=== PATIENT | female | born 1955 | race Hispanic/Latino ===

== ENCOUNTER → 2018-11-28 | Day surgery (SDC) | payer OTHER ==
[~2018-11-28] MED LIST: AMLODIPINE BESYL5 MG PO; FENTANYL CITRATE/PF 100MCG/2 ML INJ ONE; HYZAAR 100-251 EACH PO; LORATADINE10 MG PO; MECLIZINE HCL25 MG; MECLIZINE PO; METFORMIN HCL500 M2 PO; MIDAZOLAM HCL 2 MG/2 ML VIAL ONE; PANTOPRAZOLE SO40 MG PO; PROPOFOL IV EMULSION 10 MG/ML 50 ML VIAL ONE; RANITIDINE HCL150 MG; RANITIDINE HCL300 MG PO; Z.0.BYSTOLIC10 MG PO; Z.0.DIOVAN HCT 3201 PO; ZETIA10 MG PO
--- OUTSIDE RECORDS SUMMARY | 2018-11-28 05:48 | XMS REPORT | Clinical Summary ---
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 Active pantoprazole (PROTONIX) pantoprazole 0 40 MG EC tablet 40 mg tablet,delaye d release TAKE 1 TABLET(S) BY MOUTH DAILY Active ranitidine (ZANTAC) 150 Take 150 mg 0 MG tablet by mouth 2 (two) times a day. Active Problems No known active problems Encounters Care Team Description Date Type Specialty Narcisa Lehman PA Urge incontinence of urine (Primary Dx); Full incontinence of feces; Recurrent urinary tract infection 03/16/2018 Office Visit Urology after 11/27/2017 Family History Medical History Relation Name Comments Parkinsonism Father Hypertension Mother Relation Name Status Comments Father Mother Alive Social History Date Tobacco Use Types Packs/Day Years Used Never Smoker Smokeless Tobacco: Never Used Alcohol Use Drinks/Week oz/Week Comments No Sex Assigned at Date Recorded Not on file Industry Job Start Date Occupation Not on file Not on file Not on file Travel End Travel History Travel Start No recent travel history available. Last Filed Vital Signs Time Taken Vital Sign Reading 03/16/2018 11:46 AM CDT Blood Pressure 141/84 03/16/2018 11:46 AM CDT Pulse 80 - Temperature - - Respiratory Rate - - Oxygen Saturation - - Inhaled Oxygen - Concentration 03/16/2018 11:46 AM CDT Weight 118 kg (261 lb) 03/16/2018 11:46 AM CDT Height 167.6 cm (5' 6") 03/16/2018 11:46 AM CDT Body Mass Index 42.13 Plan of Treatment Health Maintenance Due Date Last Done Comments BREAST CANCER SCREENING 2007 COLONOSCOPY SCREENING 2007 SHINGLES VACCINES (#1) 2007 INFLUENZA VACCINE 12/14/2018 Procedures Comments Procedure Name Priority Date/Time Associated Diagnosis POC URINALYSIS DIPSTICK Routine 03/16/2018 Urge incontinence of 12:04 PM CDT urine after 11/27/2017 Results * POC urinalysis dipstick (03/16/2018 12:04 PM CDT) Color urine, Yellow POC Clarity urine, Clear POC Glucose urine, Negative Negative POC Bilirubin Negative Negative urine, POC Ketones urine, Negative Negative POC Specific 1.020 1.005 - 1.030 gravity urine, POC Blood urine, Negative Negative POC pH urine, POC 5.5 5.0, 5.5, 6.0, 6.5, 7.0, 7.5, 8.0, 8.5 Protein urine, Trace (A) Negative POC Urobilinogen <2.0 <2.0 urine, POC Nitrite urine, Negative Negative POC Leukocyte Negative Negative esterase urine, POC Specimen Urine after 11/27/2017 Insurance Type Payer Benefit Subscriber ID Effective Phone Address Plan / Dates Group HMO/PPO [facility] xxxxxxxxx [id number] THCARE resent CHOICE/CHO ICE + Advance Directives Patient has advance care planning documents on file. For more information, tono cortez contact: Gallo Lyon [address] [place] [address]
--- OUTSIDE RECORDS SUMMARY | 2018-11-28 05:50 | XMS REPORT | Continuity of Care Document ---
Author Author Dinamundo Address Unknown Phone Unavailable Care Team Providers Care Director Of Group Counseling Program Name Role Phone Wheeldo Unavailable Unavailable Problems Problem Status Onset Date Classification Date Reported Comments Source R10.84 GENERALIZED ABDOMINAL PAIN Active 10/30/2018 [facility] Encounter for preprocedural cardiovascular examination 05/12/2018 11/22/2018 [facility] DX: R59.1 Active 04/26/2018 [facility] Localized swelling, mass and lump, trunk 04/21/2018 11/05/2018 [facility] DX: R22.2 Active 04/13/2018 [facility] Encounter for screening mammogram for malignant neoplasm of breast 03/18/2018 09/28/2018 [facility] ROUTINE MAMMO Active 02/22/2018 [facility] DX: ROUTINE SCREENING Active 07/30/2016 [facility] Discharge Diagnosis: Chest pain 09/25/2015 09/28/2015 [facility] Discharge Diagnosis: Abdominal pain 09/25/2015 09/28/2015 [facility] HIGH BLOOD PRESSURE Active 09/24/2015 [facility] SCREENING Active 06/18/2014 [facility] ASYMMETRIC DENSITY Active 05/21/2013 [facility] ROUTINE Active 04/25/2013 [facility] VOMITING Active 01/16/2013 [facility] RTN Active 04/20/2011 [facility] Acid reflux Active Problem 11/22/2018 [facility] Hernia Resolved Problem 09/28/2015 [facility] Hypertension Active Problem 11/22/2018 [facility] Acid reflux Resolved Problem 01/18/2013 [facility] Hernia Resolved Problem 01/18/2013 [facility] Hypertension Resolved Problem 01/18/2013 [facility] Arthritis Active Problem 11/22/2018 [facility] Shingles Resolved Problem 11/22/2018 [facility] Hypercholesterolemia Active Problem 11/22/2018 [facility] Urinary frequency Active Problem 11/22/2018 [facility] Generalized enlarged lymph nodes 11/22/2018 [facility] Localized enlarged lymph nodes 11/05/2018 [facility] Postmenopausal Active Problem 09/28/2018 [facility] Chronic edema Active Diagnosis 08/02/2017 [facility] Fatty liver Active Problem 09/28/2018 [facility] Allergic sinusitis Active Problem 09/28/2018 [facility] Essential hypertension Active Problem 09/28/2018 [facility] Gastroesophageal reflux disease, esophagitis presence not specified Active Problem 09/28/2018 [facility] ANAID Active Diagnosis 08/02/2017 [facility] Vitamin D deficiency Active Problem 09/28/2018 [facility] HLD Active Problem 09/28/2018 [facility] Osteoarthritis Active Problem 09/28/2018 [facility] Hemorrhoids Active Problem 09/28/2018 [facility] Obesity Active Problem 09/28/2018 [facility] Statin intolerance Active Problem 09/28/2018 [facility] ANA LAURA Active Problem 09/28/2018 [facility] Prediabetes Active Problem 09/28/2018 [facility] History of cholecystectomy Active Problem 09/28/2018 [facility] Diarrhea, unspecified type Active Diagnosis 03/31/2017 [facility] Cough Active Diagnosis 03/31/2017 [facility] Hemorrhoids, unspecified hemorrhoid type Active Diagnosis 01/11/2018 [facility] Pelvic pain Active Diagnosis 01/20/2017 [facility] Hordeolum externum of right upper eyelid Active Diagnosis 04/22/2017 [facility] Acute non-recurrent maxillary sinusitis Active Diagnosis 04/22/2017 [facility] Abnormal EKG Active Diagnosis 08/02/2017 [facility] Herpes zoster without complication Active Diagnosis 08/02/2017 [facility] Screening for breast cancer Active Diagnosis 08/02/2017 [facility] Encntr for general adult medical exam w/o abnormal findings Active Diagnosis 08/02/2017 [facility] 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 [facility] Irritable bowel syndrome with diarrhea Active Problem 09/28/2018 [facility] Bladder spasms Active Problem 09/28/2018 [facility] 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, initial encounter Active Problem 09/28/2018 [facility] Breast cancer screening Active Diagnosis 09/23/2017 [facility] Acute cystitis without hematuria Active Diagnosis 12/23/2017 [facility] Sore throat Active Diagnosis 12/23/2017 [facility] Left arm pain Active Diagnosis 07/05/2017 [facility] Anal fissure Active Diagnosis 01/05/2018 [facility] Bronchitis Active Diagnosis 01/20/2018 [facility] Acute sinusitis, unspecified Active Diagnosis 01/20/2018 [facility] Other specified bacterial agents as the cause of diseases classified elsewhere Active Diagnosis 01/20/2018 [facility] Urinary tract infection without hematuria, site unspecified Active Diagnosis 02/27/2018 [facility] Flank pain, acute Active Diagnosis 03/07/2018 [facility] Right upper quadrant abdominal pain Active Diagnosis 03/07/2018 [facility] Morbid obesity Active Problem 09/28/2018 [facility] Acute pain of right knee Active Diagnosis 03/07/2018 [facility] Primary osteoarthritis of right knee Active Problem 09/28/2018 [facility] Gastroesophageal reflux disease without esophagitis Active Problem 09/28/2018 [facility] Lymphadenopathy Active Diagnosis 04/18/2018 [facility] Vertigo Active Diagnosis 04/11/2018 [facility] Soft tissue swelling of chest wall Active Diagnosis 04/11/2018 [facility] Acute URI Active Diagnosis 07/09/2018 [facility] Generalized abdominal pain Active Diagnosis 07/09/2018 [facility] Neck pain Active Diagnosis 09/28/2018 [facility] Osteoarthritis, generalized Active Problem 01/07/2015 [facility] Hypertension, benign Active Problem 01/07/2015 [facility] Hyperlipidemia Active Problem 01/07/2015 [facility] Body Mass Index 39.0-39.9, adult Active Problem 01/07/2015 [facility] Obesity Active Problem 01/07/2015 [facility] ANA LAURA Active Problem 01/07/2015 [facility] Hemorrhoids Active Problem 01/07/2015 [facility] Postmenopausal Active Problem 01/07/2015 [facility] Prediabetes Active Problem 01/07/2015 [facility] Myalgia Active Problem 01/07/2015 [facility] Fatty liver Active Problem 01/07/2015 [facility] Chronic edema Active Problem 01/07/2015 [facility] Vitamin d deficiency Active Problem 01/07/2015 [facility] Statin intolerance Active Problem 01/07/2015 [facility] ANAID Active Problem 01/07/2015 [facility] Hypertension Active Problem 01/07/2015 [facility] CASTELLANOS Active Diagnosis 01/07/2015 [facility] HTN Active Problem 06/16/2016 [facility] Myalgia Active Problem 06/16/2016 [facility] Insomnia Active Diagnosis 12/21/2014 [facility] Anxiety Active Diagnosis 12/21/2014 [facility] Thrombocytopenia Active Diagnosis 12/21/2014 [facility] CANDICE , bilateral Active Diagnosis 06/15/2016 [facility] Dizziness Active Diagnosis 07/07/2016 [facility] Screening for osteoporosis Active Diagnosis 07/23/2016 [facility] Screening for colon cancer Active Diagnosis 07/23/2016 [facility] LUMBAR SPINE SPRAIN/STRAIN Active [facility] Medications Medication Details Route Status Patient Instructions Ordering Provider Order Date Source Flexeril 1 tablet as needed Orally Active 10 mg Orally Three times a day Ghebranious 09/20/2018 [facility] Mobic 1 tablet Orally Active 7.5 MG Orally Once a day ebranious 09/20/2018 [facility] Bromfed DM 10 ml as needed Orally Active 30-2-10 MG/5ML Orally every 4 hrs Ren 06/28/2018 [facility] Dicyclomine HCl 2 capsules Orally Active 10 MG Orally Four times a day Ren 06/28/2018 [facility] Omnipaque 300 injectable solution 100 mL, Route: IV, Drug Form: SOLN, Dosing Weight 106.818, kg, ONCALL, GFR > 45 mL/min, Start date: 05/04/18 8:00:00 [employer]ALL UMPIRE, Duration: 1 doses or timesNotes: (Same as:Omnipaque 300). WASTE: F/P - Black; E - [facility] Trash [facility] Active 05/04/2018 [facility] Metamucil PO, Daily, 0 Refill(s) Active 05/04/2018 [facility] Miralax 17 gm, PO, Daily, 0 Refill(s) Active 05/04/2018 [facility] Probiotic Formula PO, Daily, 0 Refill(s) Active 05/04/2018 [facility] Hydrochlorothiazide 25 MG / Losartan Potassium 100 MG Oral Tablet 1 tab, PO, Daily, 0 Refill(s) Active 05/04/2018 [facility] pantoprazole 40 mg oral enteric coated tablet 40 mg=1 tab, PO, Daily, 0 Refill(s) Active 05/04/2018 [facility] metFORMIN 500 mg oral tablet, extended release 500 mg=1 tab, PO, Daily, 0 Refill(s) Active 05/04/2018 [facility] ezetimibe 10 mg oral tablet 10 mg=1 tab, PO, Daily, 0 Refill(s) Active 05/04/2018 [facility] amLODIPine 10 mg oral tablet 10 mg=1 tab, PO, Daily, 0 Refill(s) Active 05/04/2018 [facility] meclizine 25 mg oral tablet 25 mg=1 tab, PO, TID, 0 Refill(s) Active 05/04/2018 [facility] Ranitidine 150 MG Oral Tablet 150 mg=1 tab, PO, BID, 0 Refill(s) Active 05/04/2018 [facility] Voltaren as directed Transdermal Active 1 % Transdermal apply 4gm to right knee q 6hrs prn Ren 04/21/2018 [facility] Voltaren as directed Transdermal Active 1 % Transdermal apply to right knee every 6 hours if needed Ghebranious 04/19/2018 [facility] Medrol (Gabriel) as directed Orally Active 4 mg Orally Neo 04/05/2018 [facility] Augmentin 1 tablet Orally Active 875-125 MG Orally every 12 hrs [place] 02/26/2018 [facility] Ultram 1-2 tablet as needed Orally Active 50 mg Orally every 6 hrs prn breakthrough pain [place] 02/24/2018 [facility] Tramadol HCl 1-2tablet as needed by mouth Active 50 mg by mouth every 6 hrs [place] 01/10/2018 [facility] Levaquin 1 tablet Orally Active 500 mg Orally once a day Ghebranious 01/02/2018 [facility] Flonase 2 spray in each nostril Nasally Active 50 MCG/ACT Nasally Once a day Ghebranious 01/02/2018 [facility] Norel AD 1 tablet as needed Orally Active 4-10-325 MG Orally every 4-6 hours Ghebranious 01/02/2018 [facility] ProAir HFA 2 puffs Inhalation Active 108 (90 Base) MCG/ACT Inhalation every 6 hrs prn Ghebranious 12/27/2017 [facility] Levaquin 1 tablet Orally Active 500 mg Orally Once a day Ghebranious 12/27/2017 [facility] Bromfed DM 10 ml Orally Active 30-2-10 MG/5ML Orally every 4 hrs prn [facility] 12/27/2017 [facility] Hydrocortisone 1 application to affected area Rectal Active 1 % Rectal Twice a day PRN Ghebranious 12/21/2017 [facility] Valtrex 1 tablet Orally Active 1 GM Orally three times a day Ghebranious 09/15/2017 [facility] Bentyl 1 capsules Orally Active 10 mg Orally Four times a day PRN Ghebranious 09/15/2017 [facility] Lyrica 1 capsule Orally Active 75 MG Orally Twice a day Ghebranious 07/04/2017 [facility] Valacyclovir HCl 1 tablet Orally Active 1 GM Orally three times a day (tid) Neo 07/04/2017 [facility] Lidocaine 1 application to affected area as needed Externally Active 5 % Externally Three times a day Ghebranious 06/20/2017 [facility] Rectiv as directed Rectal Active 0.4 % Rectal apply 1 inch intra annally every 12 hrs Neo 06/20/2017 [facility] Anucort-HC 1 suppository Rectal Active 25 MG Rectal twice a day Neo 06/20/2017 [facility] TobraDex 1 application Ophthalmic Active 0.3-0.1 % Ophthalmic Once a day Cecilia 04/19/2017 [facility] Bactrim DS 1 tablet Orally Active 800-160 MG Orally Twice a day Cecilia 04/19/2017 [facility] Proctosol HC 1 application to affected area Rectal Active 2.5 % Rectal Twice a day NEEDED Cecilia 03/29/2017 [facility] Bromfed DM 10 ml as needed Orally Active 30-2-10 MG/5ML Orally every 6 hrs Cecilia 03/29/2017 [facility] Zetia 1 tablet Orally Active 10 MG Orally Once a day Cecilia 07/29/2016 [facility] Zetia 1 tablet Orally Active 10 mg Orally Once a day Cecilia 07/29/2016 [facility] Flonase 1 spray in each nostril Nasally Active 50 MCG/ACT Nasally Once a day Ghebranious 07/05/2016 [facility] Flonase 1 spray in each nostril Nasally Active 50 MCG/ACT Nasally Once a day Cecilia 07/05/2016 [facility] Meclizine HCl 1 tablet as needed Orally Active 25 MG Orally Q 6 hours Cecilia 06/15/2016 [facility] Meclizine HCl 1 tablet as needed Orally Active 25 MG Orally Q 6 hours Cecilia 06/15/2016 [facility] Bromfed DM 10 ml as needed Orally Active 30-2-10 MG/5ML Orally every 6 hrs Ghebranious 06/15/2016 [facility] Norel AD as directed Orally Active 4-10-325 MG Orally every six to eight hours Cecilia 06/14/2016 [facility] Aluminum Hydroxide 80 MG/ML / Magnesium Hydroxide 80 MG/ML / Simethicone 8 MG/ML Oral Suspension [Maalox Max] 5 ml, PO, QID, PRN Indigestion, X 10 day, # 200 ml, 0 Refill(s) Active 09/25/2015 [facility] GI cocktail 30 mL, Route: PO, Drug Form: SUSP, Dosing Weight 109.091, kg, ONCE, STAT, Start date: 09/25/15 6:12:00 CDT, Stop date: 09/25/15 6:12:00 CDTNotes: G.I. Cocktail=antacid with simethicone 22.5 mL - lidocaine viscous 7.5 mL Inactive 09/25/2015 [facility] Clonidine Hydrochloride 0.1 MG Oral Tablet 0.1 mg, 1 tab, Route: PO, Drug form: TAB, ONCE, Dosing Weight 109.091, kg, Priority: STAT, Start date: 09/25/15 6:11:00 CDT, Stop date: 09/25/15 6:11:00 CDTNotes: (Same As: Catapres) Inactive 09/25/2015 [facility] Aspirin 81 MG Chewable Tablet 324 mg, 4 tab, Route: PO, Drug form: CHEWTAB, ONCE, Dosing Weight 109.091, kg, Priority: STAT, Start date: 09/25/15 5:48:00 CDT, Stop date: 09/25/15 5:48:00 CDTNotes: Take with food. Inactive 09/25/2015 [facility] Tylenol 650 mg, 2 tab, Route: PO, Drug form: TAB, ONCE, Dosing Weight 109.091, kg, Priority: STAT, Start date: 09/25/15 4:47:00 CDT, Stop date: 09/25/15 4:47:00 CDTNotes: Do not exceed 4 gm/day. (Same as: T ylenol) Inactive 09/25/2015 [facility] Hydralazine 10 mg, 0.5 mL, Route: IV, Drug form: INJ, ONCE, Dosing Weight 109.091, kg, Start date: 09/25/15 4:47:00 CDT, Stop date: 09/25/15 4:47:00 CDTNotes: (Same as: Apresoline) Push over 5 minutes Inactive 09/25/2015 [facility] Exforge HCT 1 tablet Orally Active 5-160-25 MG Orally Once a day Ghebranious 07/29/2015 [facility] Bystolic 1 tablet Orally Active 10 mg Orally Once a day Cecilia 04/07/2015 [facility] Vitamin D (Ergocalciferol) 1 capsule Orally Active 34049 UNIT Orally once per week (MUST SEE DOCTOR BEFORE NEXT REFILL) ebranious 03/07/2015 [facility] Tribenzor 1 tablet Orally Active 40-5-25 MG Orally Once a day ebranious 02/03/2015 [facility] Meloxicam 1 tablet Orally Active 7.5 MG Orally Once a day Cecilia 02/03/2015 [facility] HydrOXYzine HCl 1 tablet 30 min before going to the dentist or 2 tabs 30 min before going to bed Orally Active 25 MG Orally as directed [place] 12/20/2014 [facility] Vitamin D (Ergocalciferol) 1 capsule Orally Active 81371 UNIT Orally once a week [place] 12/20/2014 [facility] Benicar HCT 1 tablet Orally Active 40-12.5 MG Orally Once a day [place] 07/05/2014 [facility] Pataday 1 drop into affected eye Ophthalmic Active Ophthalmic as needed [place] 07/05/2014 [facility] Welchol 3 tablets with meals Orally Active 625 MG Orally Twice a day [place] 07/05/2014 [facility] MetFORMIN HCl ER 1 tablet with evening meal Orally Active 500 MG Orally Once a day Cecilia [facility] Amlodipine Besylate 1 tablet by mouth Active 10 mg by mouth Once a day ebranious [facility] Losartan Potassium-HCTZ 1 tablet by mouth Active 100-25 MG by mouth [facility] Amlodipine Besylate TAKE ONE TABLET BY MOUTH ONCE DAILY NA Active 10MG Neo [facility] MetFORMIN HCl ER 1 tablet with evening meal by mouth Active 500 mg by mouth Once a day ebranious [facility] Loratadine 1 tablet Orally Active 10 MG Orally Once a day ebranious [facility] Ezetimibe 1 tablet by mouth Active 10MG by mouth [facility] a [facility] Losartan Potassium-HCTZ TAKE ONE TABLET BY MOUTH ONCE DAILY NA Active 100-25MG Neo [facility] Meclizine HCl 1 tablet as needed Orally Active 25 MG Orally Once a day Ghebranious [facility] Sertraline HCl 1 tablet Orally Active 50 MG Orally Once a day [facility] Sertraline HCl TAKE ONE TABLET BY MOUTH ONCE DAILY by mouth Active 50MG by mouth daily as needed Neo [facility] Ranitidine HCl not defined NA Active Neo [facility] Pantoprazole Sodium 1 tablet by mouth Active 40 mg by mouth Once a day [facility] Diazepam 1 tablet as needed Orally Active 5 MG Orally 1 tablet PRN prior to flight as needed [facility] Loratadine 1 tablet Orally Active 10 MG Orally Once a day [facility] Pantoprazole Sodium 1 tablet Orally Active 40 MG Orally Once a day [facility] Diazepam 1 tablet as needed Orally Active 5 MG Orally 1 tablet PRN prior to flight as needed Cecilia [facility] Meclizine HCl 1 tablet as needed Orally Active 25 MG Orally Once a day [facility] Losartan Potassium-HCTZ 1 tablet Orally Active 100-25 MG Orally Once a day [facility] Sertraline HCl 1 tablet Orally Active 50 MG Orally Once a day [facility] Amlodipine Besylate 1 tablet Orally Active 10 MG Orally Once a day [facility] Motion Sickness Relief 1 tablet as needed Orally Active 50 MG Orally every 6 hrs [facility] Amlodipine Besylate TAKE ONE TABLET BY MOUTH ONCE DAILY NA Active 10MG [facility] Losartan Potassium-HCTZ TAKE ONE TABLET BY MOUTH ONCE DAILY NA Active 100-25MG [facility] Sertraline HCl TAKE ONE TABLET BY MOUTH ONCE DAILY by mouth Active 50MG by mouth daily as needed [facility] Enc[facility]acion [facility] Ranitidine HCl 2 tablet Orally Active 150 MG Orally daily [facility] Omeprazole 1 capsule Orally Active 40 mg Orally once a day [facility] [facility] Bystolic 1 tablet Orally Active 10 mg Orally Once a day [facility] Crestor 1 tablet Orally Active 5 MG Orally Once a day [facility] Advair Diskus 2 puffs Inhalation Active 250-50 MCG[facility]DOSE [facility] Celecoxib 1 capsule by mouth Active 200 MG by mouth daily [facility] Omeprazole 1 capsule Orally Active 40 mg Orally twice a day (bid) [facility] Bystolic 1 tablet Orally Active 10 mg Orally Once a day [facility] Allergies, Adverse Reactions, Alerts Substance Category Reaction Severity Reaction type Status Date Reported Comments Source N.K.D.A. Adverse Reaction Info Not Available Adverse Reaction Active 01/02/2018 [facility] Levaquin Adverse Reaction knee pain Adverse Reaction Active 09/20/2018 [facility] No Known Medication Allergies Assertion Drug allergy [facility] Immunizations No Data Provided for This Section Results Order Name Results Value Reference Range Date Interpretation Comments Source CHEM PANEL POC Creatinine 1.0 0.5 - 1.4 05/04/2018 [facility] CHEM PANEL eGFR 61 05/04/2018 Result Comment: The eGFR is calculated using the CKD-EPI formula. In most young, healthy individuals the eGFR will be >90 mL/min/1.73m2. The eGFR declines with age. An eGFR of 60-89 may be normal in some populations, particularly the elderly, for whom the CKD-EPI formula has not been extensively validated. Use of the eGFR is not recommended in the following populations:

Individuals with unstable creatinine concentrations, including patients and those with serious co-morbid conditions.

Patients with extremes in muscle mass or diet.

The data above are obtained from the National Kidney Disease Education Program (NKDEP) which additionally recommends that when the eGFR is used in patients with extremes of body mass index for purposes of drug dosing, the eGFR should be multiplied by the estimated BMI. [facility] ELECTROLYTES CO2 27 24 - 32 05/04/2018 [facility] ELECTROLYTES Chloride Lvl 102 95 - 109 05/04/2018 [facility] ELECTROLYTES eGFR 56 05/04/2018 Result Comment: The eGFR is calculated using the CKD-EPI formula. In most young, healthy individuals the eGFR will be >90 mL/min/1.73m2. The eGFR declines with age. An eGFR of 60-89 may be normal in some populations, particularly the elderly, for whom the CKD-EPI formula has not been extensively validated. Use of the eGFR is not recommended in the following populations:

Individuals with unstable creatinine concentrations, including patients and those with serious co-morbid conditions.

Patients with extremes in muscle mass or diet.

The data above are obtained from the National Kidney Disease Education Program (NKDEP) which additionally recommends that when the eGFR is used in patients with extremes of body mass index for purposes of drug dosing, the eGFR should be multiplied by the estimated BMI. [facility] ELECTROLYTES AGAP 12.3 10.0 - 20.0 05/04/2018 [facility] ELECTROLYTES Calcium Lvl 9.0 8.5 - 10.5 05/04/2018 [facility] ELECTROLYTES Creatinine Lvl 1.07 0.50 - 1.40 05/04/2018 [facility] ELECTROLYTES Potassium Lvl 3.3 3.5 - 5.1 05/04/2018 [facility] ELECTROLYTES Sodium Lvl 138 135 - 145 05/04/2018 [facility] ELECTROLYTES BUN 18 7 - 22 05/04/2018 [facility] ELECTROLYTES Glucose Lvl 126 70 - 99 05/04/2018 [facility] CARDIAC ENZYMES Troponin-I <0.02 0.00 - 0.40 09/25/2015 [facility] CARDIAC ENZYMES Troponin-I <0.02 0.00 - 0.40 09/25/2015 [facility] CARDIAC ENZYMES Total CK 50 12 - 191 09/25/2015 [facility] ELECTROLYTES AGAP 12.0 10.0 - 20.0 09/25/2015 [facility] ELECTROLYTES eGFR 67 09/25/2015 Result Comment: The eGFR is calculated using the CKD-EPI formula. In most young, healthy individuals the eGFR will be >90 mL/min/1.73m2. The eGFR declines with age. An eGFR of 60-89 may be normal in some populations, particularly the elderly, for whom the CKD-EPI formula has not been extensively validated. Use of the eGFR is not recommended in the following populations:

Individuals with unstable creatinine concentrations, including patients and those with serious co-morbid conditions.

Patients with extremes in muscle mass or diet.

The data above are obtained from the National Kidney Disease Education Program (NKDEP) which additionally recommends that when the eGFR is used in patients with extremes of body mass index for purposes of drug dosing, the eGFR should be multiplied by the estimated BMI. [facility] ELECTROLYTES Creatinine Lvl 0.94 0.50 - 1.40 09/25/2015 [facility] ELECTROLYTES BUN 11 7 - 22 09/25/2015 [facility] ELECTROLYTES Glucose Lvl 118 70 - 99 09/25/2015 [facility] ELECTROLYTES Calcium Lvl 9.2 8.5 - 10.5 09/25/2015 [facility] ELECTROLYTES Chloride Lvl 104 95 - 109 09/25/2015 [facility] ELECTROLYTES CO2 27 24 - 32 09/25/2015 [facility] ELECTROLYTES Sodium Lvl 139 135 - 145 09/25/2015 [facility] ELECTROLYTES Potassium Lvl 4.0 3.5 - 5.1 09/25/2015 [facility] HEMATOLOGY Segs-Bands # 4.8 1.5 - 8.1 09/25/2015 [facility] HEMATOLOGY Basophils # 0.1 0.0 - 0.2 09/25/2015 [facility] HEMATOLOGY Lymphocytes # 1.6 1.0 - 5.5 09/25/2015 [facility] HEMATOLOGY Monocytes # 0.5 0.0 - 0.8 09/25/2015 [facility] HEMATOLOGY Monocytes 7.6 2.0 - 12.0 09/25/2015 [facility] HEMATOLOGY Segs 68.4 45.0 - 75.0 09/25/2015 [facility] HEMATOLOGY Eosinophils 0.3 0.0 - 4.0 09/25/2015 [facility] HEMATOLOGY Lymphocytes 22.7 20.0 - 40.0 09/25/2015 [facility] HEMATOLOGY Basophils 1.0 0.0 - 1.0 09/25/2015 [facility] HEMATOLOGY RBC 4.53 4.20 - 5.40 09/25/2015 [facility] WBC 7.1 3.7 - 10.4 09/25/2015 [facility] Hgb 12.5 12.0 - 16.0 09/25/2015 [facility] MCHC 32.5 32.0 - 36.0 09/25/2015 [facility] Platelet 214 133 - 450 09/25/2015 [facility] MCH 27.6 27.0 - 31.0 09/25/2015 [facility] HEMATOLOGY MCV 84.9 80.0 - 98.0 09/25/2015 [facility] HEMATOLOGY Hct 38.5 36.0 - 48.0 09/25/2015 [facility] HEMATOLOGY MPV 9.6 7.4 - 10.4 09/25/2015 [facility] HEMATOLOGY RDW 15.1 11.5 - 14.5 09/25/2015 [facility] URINE AND STOOL UA Bili Negative *NA* (09/25/15 3:33 AM) Negative 09/25/2015 [facility] URINE AND STOOL UA Blood Negative (09/25/15 3:33 AM) Negative 09/25/2015 [facility] URINE AND STOOL UA Protein Negative mg/dL Negative mg/dL 09/25/2015 [facility] URINE AND STOOL UA Glucose Negative mg/dL Negative mg/dL 09/25/2015 [facility] URINE AND STOOL UA Ketones Negative mg/dL Negative mg/dL 09/25/2015 [facility] URINE AND STOOL UA Spec Grav 1.006 <=1.030 09/25/2015 [facility] URINE AND STOOL UA pH 6.0 5.0 - 8.0 09/25/2015 [facility] URINE AND STOOL UA Turbidity Clear (09/25/15 3:33 AM) Clear 09/25/2015 [facility] URINE AND STOOL UA Urobilinogen <=1.0 mg/dL 0.1 - 1.0 09/25/2015 [facility] URINE AND STOOL UA Bacteria Occasional /HPF None Seen /HPF 09/25/2015 [facility] URINE AND STOOL UA RBC 1 0 - 2 09/25/2015 [facility] URINE AND STOOL UA Color Ltyellow 09/25/2015 [facility] URINE AND STOOL UA Nitrite Negative (09/25/15 3:33 AM) Negative 09/25/2015 [facility] URINE AND STOOL UA Leuk Est Negative (09/25/15 3:33 AM) Negative 09/25/2015 [facility] URINE AND STOOL UA WBC 1 0 - 5 09/25/2015 [facility] URINE AND STOOL UA Sq Epi Occasional /LPF Few /LPF 09/25/2015 [facility] Pathology Reports No Data Provided for This Section Diagnostic Reports Report Value Date Source Chest w contrast CT Clinical Indication: - R59.1 Generalized enlarged lymph nodes; Comparison: None TECHNIQUE: Sequential trans-axial images were obtained thru the chest and upper abdomen after administration of iodinated contrast. Coronal and sagittal reconstructions were obtained. 100 cc of nonionic contrast material was used for the exam. CT imaging performed at this location utilizes radiation dose optimization techniques which include one or more of the following: -Automated exposure control -Adjustment of the mA and/or kV according to patient size -Use of iterative reconstruction technique CT Radiation Dose DLP 308 mGy-cm FINDINGS: LUNG PARENCHYMA AND PLEURA: There are no lung nodules. There is no significant interstitial lung disease. There are no pleural effusions. There is no pneumothorax. AIRWAY: The central airway is normal. MEDIASTINUM: No significant mediastinal lymphadenopathy. HEART: There is no evidence of RV strain. The cardiac chambers are otherwise unremarkable. There is no pericardial effusion. VASCULAR STRUCTURES: The pulmonary arteries and great vessels are unremarkable. The thoracic aorta is within normal limits.. The superior vena cava is unremarkable. OSSEOUS STRUCTURES: There are no significant osseous abnormalities seen. VISUALIZED UPPER ABDOMEN: Cholecystectomy. Small bilateral adrenal nodularity, possibly adrenal adenomata.. IMPRESSION: No thoracic adenopathy or mass appreciated. No significant acute thoracic findings are otherwise noted. Bilateral small adrenal nodularity may represent adrenal adenomata. SL: [id number] 05/04/2018 [facility] Chest US EXAM: Ultrasound chest HISTORY: Swelling left collarbone area COMPARISON: None TECHNIQUE: Grayscale static images soft tissues left chest at area of interest FINDINGS: 1.3 cm lymph node in the soft tissues of the left upper chest. Otherwise, no mass or fluid collection is seen. A CT chest with IV contrast can further evaluate as clinically indicated. SL 13 04/17/2018 [facility] Breast Mammo Scrn JOHN w olesya incl CAD MA BILATERAL DIGITAL SCREENING MAMMOGRAM 3D/2D WITH CAD WITH ADDITIONAL VIEWS: 03/11/2018 CLINICAL: Screening/Z12.31. Current study was evaluated with a Computer Aided Detection (CAD) system. COMPARISON:Comparison is made to exams dated: 09/01/2016 mammogram, 07/06/2014 mammogram, 06/04/2013 mammogram, 05/11/2013 mammogram, 05/03/2012 mammogram, and 05/01/2011 mammogram - [facility]. TECHNIQUE: Digital Breast Tomosynthesis was performed and utilized for Interpretation. We[employer]ia Version 1.3 was utilized for computer aided detection. FINDINGS: There are scattered fibroglandular densities in both breasts. There are benign appearing calcifications and densities in both breasts. No significant masses, calcifications, or other findings are seen in either breast. There has been no significant interval change. IMPRESSION: BENIGN RECOMMENDATION:There is no mammographic evidence of malignancy. A 1 year screening mammogram is recommended.(03/12/2019) This exam was interpreted at [id number] for [facility] [place]. Devyn jo/preethi:03/13/2018 08:21:07 Ship Officer(s): Mary Truong, [facility] letter sent: BI-RADS 1/2 Mammogram BI-RADS: 2 Benign 03/11/2018 [facility] Abdomen/Pelvis w/wo IV contrast CT Exam: CT Scan of the abdomen and pelvis with and without contrast Reason for Exam: R10.13 - R1013 Comparison Exam: Ultrasound 12/16/2006 Technique: Multiple axial images were obtained of the abdomen and pelvis. 5 mm slices were acquired before and after injection of 100 cc Omnipaque 300 IV. Oral contrast was also given. Reformatted sagittal and coronal images were obtained for additional diagnostic information. Total exam JGA=0779 mGy-cm. This exam was performed according to our departmental dose-optimization program, which includes automated exposure control, adjustment of the MA and/or KV according to patient size and/or use of iterative reconstruction technique. Discussion: Visualized portions of the lung bases are unremarkable. Diffuse fatty infiltration seen throughout the liver. Portal venous system is patent. The patient is status post cholecystectomy. No biliary duct dilation. Stomach is unremarkable. The pancreas, spleen, and left adrenal gland are unremarkable. 1.3 cm nodule seen within the right adrenal gland. It is most compatible with a adenoma. Kidneys are unremarkable. No hydronephrosis or hydroureter. Patient is status post appendectomy. No dilated loops of bowel. Scattered diverticuli seen within the large bowel, without evidence to suggest acute diverticulitis. Uterus is not identified. Bladder is unremarkable. No appreciable lymphadenopathy. No acute bony abnormalities appreciated. Mild grade 1 anterolisthesis seen of L4 on L5. No suspicious osteoblastic or osteolytic lesions. No evidence seen for abdominal aortic aneurysm or dissection. Impression: 1. No acute abnormalities seen within the abdomen or pelvis. 05/05/[facility] JOHN w olesya incl CAD MA - BREAST MAMMO SCRN JOHN W OLESYA INCL CAD MA BILATERAL DIGITAL SCREENING MAMMOGRAM 3D/2D WITH CAD: 09/01/2016 CLINICAL: Routine. 2D digital mammographic images and 3D digital tomosynthesis images were obtained in the CC and MLO projections. Current study was evaluated with a Computer Aided Detection (CAD) system. Comparison is made to exams dated: 07/06/2014 mammogram, 06/04/2013 mammogram, 05/11/2013 mammogram, 05/03/2012 mammogram, 05/01/2011 mammogram and 03/21/2010 mammogram - [facility]. There are scattered fibroglandular densities in both breasts. There are benign appearing calcifications in both breasts. There also are benign appearing densities in both breasts. No significant masses, calcifications, or other findings are seen in either breast. There has been no significant interval change. IMPRESSION: BENIGN There is no mammographic evidence of malignancy. A 1 year screening mammogram is recommended. Devyn jo/penrad:09/02/2016 13:55:31 Ship Officer: Libra Ivey, [facility] This exam was dictated and interpreted by [id number] for [facility] [place]. letter sent: Normal exam Mammogram BI-RADS: 2 Benign 09/01/2016 [facility] Chest 2 views DX Patient Name: DAVID RESTREPO : 1955; Age: 60 years y/o Female MR: [id number] Study: Chest 2 views DX 09/24/2015 10:13 PM CDT Ordering Physician: Andreea Manuel DO Comparison: None Clinical Indication: Chest pain; Lungs are clear. Cardiomediastinal silhouette normal. No consolidation or pleural fluid collection is noted. Bony thorax grossly intact. Marginal spurring at the thoracic spine. IMPRESSION: No acute cardiopulmonary process. SL: [id number] 09/24/2015 [facility] Digital Mammo Screening John MA - DIGITAL MAMMO SCREENING JOHN MA BILATERAL DIGITAL SCREENING MAMMOGRAM WITH CAD: 07/06/2014 CLINICAL: Routine. Current study was evaluated with a Computer Aided Detection (CAD) system. Comparison is made to exams dated: 06/04/2013 mammogram, 05/11/2013 mammogram, 05/03/2012 mammogram, 05/01/2011 mammogram, 03/21/2010 mammogram and 03/31/2009 mammogram - [facility]. There are scattered fibroglandular densities in both breasts. There are benign appearing calcifications in both breasts. There also are stable benign appearing densities in both breasts. No significant masses, calcifications, or other findings are seen in either breast. There has been no significant interval change. IMPRESSION: BENIGN There is no mammographic evidence of malignancy. A 1 year screening mammogram is recommended. Vince Colmenares M.D. ap/:07/08/2014 13:29:11 Ship Officer: Meliza Leary, [facility] This exam was dictated and interpreted by [id number] for [facility]. letter sent: Normal exam Mammogram BI-RADS: 2 Benign 07/06/2014 [facility] US - BREAST US/R ULTRASOUND OF RIGHT BREAST AND RIGHT AXILLA: 06/04/2013 CLINICAL: Cyst. Comparison is made to exams dated: 06/04/2013 mammogram, 05/11/2013 mammogram, 05/03/2012 mammogram and 03/31/2009 ultrasound - [facility]. Color flow and real-time ultrasound of the right breast and axilla were performed. Salguero scale images of the real-time examination were reviewed. There is a small benign simple cyst right breast at 8 o'clock that correlates with mammography. No abnormalities were seen sonographically in the right axilla. IMPRESSION: BENIGN There is no sonographic evidence of malignancy. Return to annual mammogram screening schedule is recommended. Devyn casillast/penrad:06/04/2013 15:36:16 Ship Officer: Niranjan Cardona, [facility] This exam was dictated and interpreted by [id number] at [facility], SL 13. letter sent: Normal exam Ultrasound BI-RADS: 2 Benign 06/04/2013 [facility] Digital Mammo DX Uni MA - DIGITAL MAMMO DX UNI MA/R UNILATERAL RIGHT DIGITAL DIAGNOSTIC MAMMOGRAM WITH CAD: 06/04/2013 CLINICAL: Density. Current study was evaluated with a Computer Aided Detection (CAD) system. Comparison is made to exams dated: 05/11/2013 mammogram, 05/03/2012 mammogram, 05/01/2011 mammogram and 03/21/2010 mammogram - [facility]. There are scattered fibroglandular densities in the right breast. There are benign appearing calcifications in the right breast. There also are benign appearing densities in the right breast. There is a nodule in the right breast at 7 o'clock middle depth. This is seen in additional views. This is not significantly changed. No other significant masses or calcifications are seen in the breast. There has been no significant interval change. IMPRESSION: INCOMPLETE: NEEDS ADDITIONAL IMAGING EVALUATION The nodule in the right breast resembles a cyst or a lymph node and is indeterminate. An ultrasound is recommended. SUMMARY: Ultrasound will be performed at this time; please see dedicated separate report. Devyn jo/penrad:06/04/2013 15:36:34 Ship Officer: Chrissy Hess, [facility] This exam was dictated and interpreted by [id number] at [facility], 13. Mammogram BI-RADS: 0 Indeterminate 06/04/2013 [facility] Digital Mammo Screening John MA - DIGITAL MAMMO SCREENING JOHN MA BILATERAL DIGITAL SCREENING MAMMOGRAM WITH CAD: 05/11/2013 CLINICAL: Routine. Current study was evaluated with a Computer Aided Detection (CAD) system. Comparison is made to exams dated: 05/03/2012 mammogram, 05/01/2011 mammogram, 03/21/2010 mammogram, 03/31/2009 mammogram and 03/08/2008 mammogram - [facility]. There are scattered fibroglandular densities in both breasts. There are benign appearing calcifications in both breasts. There also are benign appearing densities in both breasts. There is a nodule in the right breast central to the nipple middle depth. No other significant masses, calcifications, or other findings are seen in either breast. IMPRESSION: INCOMPLETE: NEEDS ADDITIONAL IMAGING EVALUATION The nodule in the right breast is indeterminate. Spot compression and lateral views as well as an ultrasound are recommended. Devyn jo/penrad:05/14/2013 10:21:12 Ship Officer: Chrissy Hess, [facility] This exam was dictated and interpreted by [id number] at [facility], 13. letter sent: Additional Imaging Mammogram BI-RADS: 0 Indeterminate 05/11/2013 [facility] Consultation Notes No Data Provided for This Section Discharge Summaries No Data Provided for This Section History and Physicals No Data Provided for This Section Vital Signs Vital Sign Value Date Comments Source Weight 239 09/20/2018 [facility] Height 66 09/20/2018 [facility] Heart Rate 68 09/20/2018 [facility] Diastolic (mm Hg) 74 09/20/2018 [facility] Systolic (mm Hg) 128 09/20/2018 [facility] Weight 237 06/28/2018 [facility] Height 66 06/28/2018 [facility] Heart Rate 78 06/28/2018 [facility] Diastolic (mm Hg) 78 06/28/2018 [facility] Systolic (mm Hg) 132 06/28/2018 [facility] Systolic (mm Hg) 140 05/04/2018 [facility] Diastolic (mm Hg) 79 05/04/2018 [facility] Heart Rate 80 05/04/2018 [facility] Temperature Oral (F) 98.0 F 05/04/2018 [facility] BMI Calculated 40.42 05/04/2018 [facility] Weight 106.818 05/04/2018 [facility] Height 162.56 cm 05/04/2018 [facility] Weight 238 04/19/2018 [facility] Height 66 04/19/2018 [facility] Heart Rate 71 04/19/2018 [facility] Diastolic (mm Hg) 68 04/19/2018 [facility] Systolic (mm Hg) 124 04/19/2018 [facility] Weight 240 04/05/2018 [facility] Height 66 04/05/2018 [facility] Heart Rate 78 04/05/2018 [facility] Diastolic (mm Hg) 62 04/05/2018 [facility] Systolic (mm Hg) 122 04/05/2018 [facility] Weight 235 02/24/2018 [facility] Height 66 02/24/2018 [facility] Temperature Oral (F) 98.5 F 02/24/2018 [facility] Heart Rate 77 02/24/2018 [facility] Diastolic (mm Hg) 86 02/24/2018 [facility] Systolic (mm Hg) 124 02/24/2018 [facility] Weight 230 01/10/2018 [facility] Height 66 01/10/2018 [facility] Heart Rate 75 01/10/2018 [facility] Diastolic (mm Hg) 72 01/10/2018 [facility] Systolic (mm Hg) 140 01/10/2018 [facility] Weight 231 01/02/2018 [facility] Height 66 01/02/2018 [facility] Heart Rate 68 01/02/2018 [facility] Diastolic (mm Hg) 74 01/02/2018 [facility] Systolic (mm Hg) 128 01/02/2018 [facility] Weight 229 12/27/2017 [facility] Height 66 12/27/2017 [facility] Temperature Oral (F) 97.5 F 12/27/2017 [facility] Heart Rate 78 12/27/2017 [facility] Diastolic (mm Hg) 80 12/27/2017 [facility] Systolic (mm Hg) 130 12/27/2017 [facility] Weight 233 12/21/2017 [facility] Height 66 12/21/2017 [facility] Temperature Oral (F) 98.2 F 12/21/2017 [facility] Heart Rate 86 12/21/2017 [facility] Weight 233 09/15/2017 [facility] Height 66 09/15/2017 [facility] Heart Rate 86 09/15/2017 [facility] Diastolic (mm Hg) 82 09/15/2017 [facility] Systolic (mm Hg) 124 09/15/2017 [facility] Weight 232 07/29/2017 [facility] Height 66 07/29/2017 [facility] Heart Rate 73 07/29/2017 [facility] Diastolic (mm Hg) 70 07/29/2017 [facility] Systolic (mm Hg) 120 07/29/2017 [facility] Weight 234 07/04/2017 [facility] Height 66 07/04/2017 [facility] Heart Rate 70 07/04/2017 [facility] Diastolic (mm Hg) 78 07/04/2017 [facility] Systolic (mm Hg) 120 07/04/2017 [facility] Weight 233 06/20/2017 [facility] Height 66 06/20/2017 [facility] Heart Rate 82 06/20/2017 [facility] Diastolic (mm Hg) 86 06/20/2017 [facility] Systolic (mm Hg) 120 06/20/2017 [facility] Weight 225 04/19/2017 [facility] Height 66 04/19/2017 [facility] Diastolic (mm Hg) 76 04/19/2017 [facility] Systolic (mm Hg) 118 04/19/2017 [facility] Weight 230 03/29/2017 [facility] Height 66 03/29/2017 [facility] Heart Rate 74 03/29/2017 [facility] Diastolic (mm Hg) 78 03/29/2017 [facility] Systolic (mm Hg) 114 03/29/2017 [facility] Weight 235 01/18/2017 [facility] Height 66 01/18/2017 [facility] Heart Rate 73 01/18/2017 [facility] Diastolic (mm Hg) 74 01/18/2017 [facility] Systolic (mm Hg) 126 01/18/2017 [facility] Weight 236 07/21/2016 [facility] Height 66 07/21/2016 [facility] Heart Rate 85 07/21/2016 [facility] Diastolic (mm Hg) 76 07/21/2016 [facility] Systolic (mm Hg) 124 07/21/2016 [facility] Weight 237 07/05/2016 [facility] Height 66 07/05/2016 [facility] Heart Rate 77 07/05/2016 [facility] Diastolic (mm Hg) 70 07/05/2016 [facility] Systolic (mm Hg) 128 07/05/2016 [facility] Weight 237 06/14/2016 [facility] Height 66 06/14/2016 [facility] Heart Rate 70 06/14/2016 [facility] Diastolic (mm Hg) 76 06/14/2016 [facility] Systolic (mm Hg) 122 06/14/2016 [facility] Heart Rate 59 09/25/2015 [facility] Temperature Oral (F) 97.8 F 09/25/2015 [facility] Systolic (mm Hg) 162 09/25/2015 [facility] Diastolic (mm Hg) 57 09/25/2015 [facility] Respitory Rate 18 09/25/2015 [facility] Respitory Rate 18 09/25/2015 [facility] Heart Rate 66 09/25/2015 [facility] Systolic (mm Hg) 180 09/25/2015 [facility] Diastolic (mm Hg) 73 09/25/2015 [facility] Heart Rate 63 09/25/2015 [facility] Respitory Rate 18 09/25/2015 [facility] Systolic (mm Hg) 201 09/25/2015 [facility] Diastolic (mm Hg) 81 09/25/2015 [facility] Temperature Oral (F) 97.6 F 09/25/2015 [facility] Temperature Oral (F) 97.6 F 09/25/2015 [facility] Weight 109.091 09/25/2015 [facility] Weight 253 04/21/2015 [facility] Height 66 04/21/2015 [facility] Heart Rate 52 04/21/2015 [facility] Diastolic (mm Hg) 72 04/21/2015 [facility] Systolic (mm Hg) 122 04/21/2015 [facility] Weight 252 01/03/2015 [facility] Height 66 01/03/2015 [facility] Temperature Oral (F) 97.7 F 01/03/2015 [facility] Heart Rate 66 01/03/2015 [facility] Diastolic (mm Hg) 80 01/03/2015 [facility] Systolic (mm Hg) 140 01/03/2015 [facility] Weight 251 12/20/2014 [facility] [facility] Height 66 12/20/2014 [facility] Temperature Oral (F) 97.5 F 12/20/2014 [facility] Heart Rate 60 12/20/2014 [facility] Diastolic (mm Hg) 80 12/20/2014 [facility] Systolic (mm Hg) 148 12/20/2014 [facility] Temperature Oral (F) 98.4 F 01/16/2013 [facility] Systolic (mm Hg) 150 01/16/2013 [facility] Heart Rate 68 01/16/2013 [facility] Diastolic (mm Hg) 76 01/16/2013 [facility] Respitory Rate 18 01/16/2013 [facility] Diastolic (mm Hg) 60 01/16/2013 [facility] Systolic (mm Hg) 155 01/16/2013 [facility] Temperature Oral (F) 98.4 F 01/16/2013 [facility] Heart Rate 60 01/16/2013 [facility] Respitory Rate 18 01/16/2013 [facility] Respitory Rate 18 01/16/2013 [facility] Systolic (mm Hg) 167 01/16/2013 [facility] Diastolic (mm Hg) 86 01/16/2013 [facility] Heart Rate 76 01/16/2013 [facility] Encounters Location Location Details Encounter Type Encounter Number Reason For Visit Attending Provider ADM Date DC Date Status Source [facility] Outpatient [id number] RTN SHIMA CISSE 05/01/[address] [facility] Outpatient [id number] ROUTINE AMIR GHEBRANIOUS 05/03/2012 05/03/[address] [facility] Emergency [id number] ELA POPAT 01/16/2013 01/16/[address] [facility] Outpatient [id number] ROUTINE AMIR GHEBRANIOUS 05/11/[address] [facility] Outpatient [id number] ASYMMETRIC DENSITY AMIR GHEBRANIOUS 06/04/2013 Active [facility] Unknown [id number] 07/01/2014 07/01/2014 [facility] Unknown [id number] 07/01/2014 07/01/2014 [facility] Unknown [id number] 07/01/2014 07/01/2014 [facility] Unknown [id number] 07/01/2014 07/01/2014 [facility] Unknown [id number] 07/01/2014 07/01/2014 [facility] Unknown [id number] 07/01/2014 07/01/[facility] [id number] 07/01/2014 07/01/2014 [facility] [id number] 07/01/2014 07/01/2014 [facility] Unknown [id number] 07/01/2014 07/01/2014 [facility] [id number] 07/01/2014 07/01/2014 [facility] [id number] 07/01/2014 07/01/2014 [facility] Unknown [id number] 07/01/2014 07/01/2014 [facility] Outpatient [id number] Amir Ghebranious 07/06/2014 07/07/2014 [facility] 90 day Rf [id number] 12/16/2014 12/16/2014 [facility] 90 day Rf [id number] 12/16/2014 12/16/2014 [facility] 90 day Rf [id number] 12/16/2014 12/16/2014 [facility] 90 day Rf [id number] 12/16/2014 12/16/2014 [facility] 90 day Rf [id number] 12/16/2014 12/16/2014 [facility] 90 day Rf [id number] 12/16/2014 12/16/2014 [facility] 90 day Rf [id number] 12/16/2014 12/16/2014 [facility] 90 day Rf [id number] 12/16/2014 12/16/2014 [facility] 90 day Rf [id number] 12/16/2014 12/16/2014 [facility] 90 day Rf [id number] 12/16/2014 12/16/2014 [facility] 90 day Rf [id number] 12/16/2014 12/16/2014 [facility] 90 day Rf [id number] 12/16/2014 12/16/2014 [facility] 2 week follow up [id number] 12/20/2014 12/20/2014 [facility] 2 week follow up [id number] 12/20/2014 12/20/2014 [facility] 2 week follow up [id number] 12/20/2014 12/20/2014 [facility] 2 week follow up [id number] 12/20/2014 12/20/2014 [facility] 2 week follow up [id number] 12/20/2014 12/20/2014 [facility] 2 week follow up [id number] 12/20/2014 12/20/2014 [facility] 2 week follow up [id number] 12/20/2014 12/20/2014 [facility] 2 week follow up [id number] 12/20/2014 12/20/2014 [facility] 2 week follow up [id number] 12/20/2014 12/20/2014 [facility] 2 week follow up [id number] 12/20/2014 12/20/2014 [facility] 2 week follow up [id number] 12/20/2014 12/20/2014 [facility] 2 week follow up [id number] 12/20/2014 12/20/2014 [facility] 2 week follow up [id number] 01/03/2015 01/03/2015 [facility] 2 week follow up [id number] 01/03/2015 01/03/2015 [facility] 2 week follow up [id number] 01/03/2015 01/03/2015 [facility] 2 week follow up [id number] 01/03/2015 01/03/2015 [facility] 2 week follow up [id number] 01/03/2015 01/03/2015 [facility] 2 week follow up [id number] 01/03/2015 01/03/2015 [facility] 2 week follow up [id number] 01/03/2015 01/03/2015 [facility] 2 week follow up [id number] 01/03/2015 01/03/2015 [facility] 2 week follow up [id number] 01/03/2015 01/03/2015 [facility] 2 week follow up [id number] 01/03/2015 01/03/2015 [facility] 1 month follow up [id number] 02/03/2015 02/03/2015 [facility] 1 month follow up [id number] 02/03/2015 02/03/2015 [facility] 1 month follow up [id number] 02/03/2015 02/03/2015 [facility] 1 month follow up [id number] 02/03/2015 02/03/2015 [facility] 1 month follow up [id number] 02/03/2015 02/03/2015 [facility] 1 month follow up [id number] 02/03/2015 02/03/2015 [facility] 1 month follow up [id number] 02/03/2015 02/03/2015 [facility] 1 month follow up [id number] 02/03/2015 02/03/2015 [facility] 1 month follow up [id number] 02/03/2015 02/03/2015 [facility] Referral [id number] 02/10/2015 02/10/2015 [facility] Referral [id number] 02/10/2015 02/10/2015 [facility] Referral [id number] 02/10/2015 02/10/2015 [facility] Referral [id number] 02/10/2015 02/10/2015 [facility] Referral [id number] 02/10/2015 02/10/2015 [facility] Referral [id number] 02/10/2015 02/10/2015 [facility] Referral [id number] 02/10/2015 02/10/2015 [facility] Referral [id number] 02/10/2015 02/10/2015 [facility] Referral [id number] 02/10/2015 02/10/2015 [facility] 3 WEEK BP CHECK [id number] 03/03/2015 03/03/2015 [facility] 3 WEEK BP CHECK [id number] 03/03/2015 03/03/2015 [facility] 3 WEEK BP CHECK [id number] 03/03/2015 03/03/2015 [facility] 3 WEEK BP CHECK [id number] 03/03/2015 03/03/2015 [facility] 3 WEEK BP CHECK [id number] 03/03/2015 03/03/2015 [facility] 3 WEEK BP CHECK [id number] 03/03/2015 03/03/2015 [facility] 3 WEEK BP CHECK [id number] 03/03/2015 03/03/2015 [facility] 3 WEEK BP CHECK [id number] 03/03/2015 03/03/2015 [facility] 3 WEEK BP CHECK [id number] 03/03/2015 03/03/2015 [facility] CHOLESTEROL CHECK [id number] 04/21/2015 04/21/2015 [facility] CHOLESTEROL CHECK [id number] 04/21/2015 04/21/2015 [facility] CHOLESTEROL CHECK [id number] 04/21/2015 04/21/2015 [facility] CHOLESTEROL CHECK [id number] 04/21/2015 04/21/2015 [facility] CHOLESTEROL CHECK [id number] 04/21/2015 04/21/2015 [facility] CHOLESTEROL CHECK [id number] 04/21/2015 04/21/2015 [facility] CHOLESTEROL CHECK [id number] 04/21/2015 04/21/2015 [facility] CHOLESTEROL CHECK [id number] 04/21/2015 04/21/2015 [facility] CHOLESTEROL CHECK [id number] 04/21/2015 04/21/2015 [facility] Refill [id number] 07/24/2015 07/24/2015 [facility] Refill [id number] 07/24/2015 07/24/2015 [facility] Refill [id number] 07/24/2015 07/24/2015 [facility] Refill [id number] 07/24/2015 07/24/2015 [facility] Refill [id number] 07/24/2015 07/24/2015 [facility] Refill [id number] 07/24/2015 07/24/2015 [facility] Refill [id number] 07/24/2015 07/24/2015 [facility] Refill [id number] 07/24/2015 07/24/2015 [facility] Refill [id number] 07/25/2015 07/25/2015 [facility] Refill [id number] 07/25/2015 07/25/2015 [facility] Refill [id number] 07/25/2015 07/25/2015 [facility] Refill [id number] 07/25/2015 07/25/2015 [facility] Refill [id number] 07/25/2015 07/25/2015 [facility] Refill [id number] 07/25/2015 07/25/2015 [facility] Refill [id number] 07/25/2015 07/25/2015 [facility] Refill [id number] 07/25/2015 07/25/2015 [facility] Other [id number] 07/29/2015 07/29/2015 [facility] Other [id number] 07/29/2015 07/29/2015 [facility] Other [id number] 07/29/2015 07/29/2015 [facility] Other [id number] 07/29/2015 07/29/2015 [facility] Other [id number] 07/29/2015 07/29/2015 [facility] Other [id number] 07/29/2015 07/29/2015 [facility] Unknown [id number] 07/30/2015 07/30/2015 [facility] Unknown [id number] 07/30/2015 07/30/2015 [facility] Unknown [id number] 07/30/2015 07/30/2015 [facility] Unknown [id number] 07/30/2015 07/30/2015 [facility] Unknown [id number] 07/30/2015 07/30/2015 [facility] [id number] Golden Olson 09/25/2015 09/25/2015 [facility] dizziness [id number] 06/14/2016 06/14/2016 [facility] dizziness [id number] 06/14/2016 06/14/2016 [facility] dizziness [id number] 06/14/2016 06/14/2016 [facility] dizziness [id number] 06/14/2016 06/14/2016 [facility] Unknown [id number] 06/14/2016 06/14/2016 [facility] Unknown [id number] 06/14/2016 06/14/2016 [facility] Unknown [id number] 06/14/2016 06/14/2016 [facility] DIZZINESS, FEELING SICK [id number] 07/05/2016 07/05/2016 [facility] DIZZINESS, FEELING SICK [id number] 07/05/2016 07/05/2016 [facility] Physical [id number] 07/21/2016 07/21/2016 [facility] Outpatient [id number] Mikala Brooks 09/01/2016 09/02/2016 [facility] [place] [facility] [id number] Chiara Vickers 05/05/2017 05/06/2017 [facility] [id number] Rylee Rodriguez 03/11/2018 03/12/[address] [facility] Outpatient [id number] Octavia Larson 04/17/2018 04/18/[address] [facility] Outpatient [id number] Octavia Larson 05/04/2018 05/05/2018 [facility] Procedures Procedure Code Date Perfomer Comments Source Procedure [id number] 05/03/2018 [facility] Operation [id number] 11/21/2017 [facility] Appendectomy [id number] [facility] Hysterectomy [id number] [facility] Appendectomy [id number] [facility] [place] Hysterectomy [id number] [facility] [place] Appendectomy [id number] [facility] Hysterectomy [id number] [facility] Assessment and Plan No Data Provided for This Section Plan of Care No Data Provided for This Section Social History Social History Date Source Social History TypeResponse Substance Abuse Use: None. 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 3 July 21, 2016 Last Colonoscopy: . 02/2012July 21, 2016 Tobacco Use: . Are you a: never smoker July 21, 2016 Flu Vaccine: . 2015July 21, 2016 Use of recreational / street drugs? . Answer: No July 21, 2016 Do you have pets? . Status: Yes, Type: dog(s) July 21, 2016 Ethnicity . Status , Is qatari your primary language? No Fijian July 21, 2016 Marital Status: . Bernbae Restrepo July 21, 2016 Caffeine intake? . Status: Yes, What type: Coffee July 21, 2016 Do you exercise? . Answer: Yes, Type: walking July 21, 2016 Depression Screening: . negative July 21, 2016 Last Bone Density: . 07/31/13 July 21, 2016 Do you drink alcohol? . Status: No July 21, 2016 07/21/2016 [facility] Social History TypeResponse Smoking Status Never smoker; Exposure to Tobacco Smoke None; Cigarette Smoking Last 365 Days No; Reg Smoking Cessation Counseling No 09/25/2015 AUGUSTIN Mahoney Family History Value Date Source QualifierDescriptionCommentDate Reported Maternal Grandmother Comment not available July 21, 2016 Paternal Grandmother Comment not available July 21, 2016 Siblings alive hypertension (sister), migraine (sister) July 21, 2016 Maternal Grandfather Comment not available July 21, 2016 Children alive Comment not available July 21, 2016 Father Comment not available July 21, 2016 Paternal Grandfather Comment not available July 21, 2016 Mother hypertension July 21, 2016 Other: Comment not available July 21, 2016 07/23/2016 [facility] QualifierDescriptionCommentDate Reported Maternal Grandmother Comment not available Jul 05, 2016 Paternal Grandmother Comment not available Jul 05, 2016 Siblings alive hypertension (sister), migraine (sister) Jul 05, 2016 Maternal Grandfather Comment not available Jul 05, 2016 Children alive Comment not available Jul 05, 2016 Father Comment not available Jul 05, 2016 Paternal Grandfather Comment not available Jul 05, 2016 Mother hypertension Jul 05, 2016 Other: Comment not available Jul 05, 2016 07/07/2016 [facility] QualifierDescriptionCommentDate Reported Maternal Grandmother Comment not available Apr 21, 2015 Paternal Grandmother Comment not available Apr 21, 2015 Siblings alive hypertension (sister), migraine (sister) Apr 21, 2015 Maternal Grandfather Comment not available Apr 21, 2015 Children alive Comment not available Apr 21, 2015 Father Comment not available Apr 21, 2015 Paternal Grandfather Comment not available Apr 21, 2015 Mother hypertension Apr 21, 2015 Other: Comment not available Apr 21, 2015 04/23/2015 [facility] Advance Directives No Data Provided for This Section Functional Status No Data Provided for This Section
--- OUTSIDE RECORDS SUMMARY | 2018-11-28 05:53 | XMS REPORT | Summary of Care ---
Author Author [facility] [place] Organization [facility] [place] Address Unknown Phone Unavailable Encounter HQ Dorientr_hero(FIN) [id number] Date(s): 05/05/17 - 05/05/17 [facility] [place] [address] [place] [address] [phone] Discharge Disposition: Home or Self Care Attending Physician: Chiara Vickers MD Vital Signs No data available for this section Problem List Condition Effective Dates Status Health Status Informant Acid Resolved reflux(Confirmed) Hypercholesterolemia Active (Confirmed) Hypertension(Confirm Active ed) Allergies, Adverse Reactions, Alerts Substance Reaction Severity Status NKDA Active Medications No data available for this section Results No data available for this section Immunizations No data available for this section Procedures Procedure Date Related Diagnosis Body Site Appendectomy Hysterectomy Social History Social History Type Response Smoking Status Never smoker; Exposure to Tobacco Smoke None; Cigarette Smoking Last 365 Days No; Reg Smoking Cessation Counseling No Assessment and Plan No data available for this section
--- OUTSIDE RECORDS SUMMARY | 2018-11-28 05:53 | XMS REPORT | Summary of Care ---
Author Author [facility] Organization [facility] Address Unknown Phone Unavailable Care Team Providers Care Shirt Folder Name Role Phone Rylee Rodriguez PCP Encounter HQ Karrie([facility] [id number] Date(s): 05/04/18 - 05/04/18 [facility] [address] [place] [address]- Encounter Diagnosis Encounter for preprocedural cardiovascular examination (Final) - 05/11/18 Generalized enlarged lymph nodes (Final) - Discharge Disposition: Home or Self Care Attending Physician: Octavia Larson Referring Physician: Octavia Larson Vital Signs Most recent to 1 oldest [Reference Range]: Height 162.56 cm (05/04/18 6:36 AM) Temperature Oral 98.0 DegF [96.4-99.1 DegF] (05/04/18 6:51 AM) Blood Pressure 140/79 mmHg [90-140/60-90 mmHg] (05/04/18 6:51 AM) Peripheral Pulse 80 bpm Rate [60-100 bpm] (05/04/18 6:51 AM) Weight 106.818 kg (05/04/18 6:36 AM) Body Mass Index 40.42 m2 (05/04/18 6:36 AM) Problem List Condition Effective Dates Status Health Status Informant Acid Active reflux(Confirmed) Arthritis(Confirmed) Active Shingles(Confirmed) Resolved Hypercholesterolemia Active (Confirmed) Hypertension(Confirm Active ed) Urinary Active frequency(Confirmed) Allergies, Adverse Reactions, Alerts No Known Medication Allergies Medications amLODIPine 10 mg oral tablet 10 mg=1 tab, PO, Daily, 0 Refill(s) Start Date: 05/04/18 Status: Ordered ezetimibe 10 mg oral tablet 10 mg=1 tab, PO, Daily, 0 Refill(s) Start Date: 05/04/18 Status: Ordered hydrochlorothiazide-losartan 25 mg-100 mg oral tablet 1 tab, PO, Daily, 0 Refill(s) Start Date: 05/04/18 Status: Ordered meclizine 25 mg oral tablet 25 mg=1 tab, PO, TID, 0 Refill(s) Start Date: 05/04/18 Status: Ordered Metamucil PO, Daily, 0 Refill(s) Start Date: 05/04/18 Status: Ordered metFORMIN 500 mg oral tablet, extended release 500 mg=1 tab, PO, Daily, 0 Refill(s) Start Date: 05/04/18 Status: Ordered MiraLax 17 gm, PO, Daily, 0 Refill(s) Start Date: 05/04/18 Status: Ordered Omnipaque 300 injectable solution 100 mL, Route: IV, Drug Form: SOLN, Dosing Weight 106.818, kg, ONCALL, GFR > 45 mL/min, Start date: 05/04/18 8:00:00 RELIGION PROFESSOR, Duration: 1 doses or times Notes: (Same as:Omnipaque 300).WASTE: F/P - Black; E - [email or web address] Trash Bin Start Date: 05/04/18 Status: Ordered pantoprazole 40 mg oral enteric coated tablet 40 mg=1 tab, PO, Daily, 0 Refill(s) Start Date: 05/04/18 Status: Ordered Probiotic Formula PO, Daily, 0 Refill(s) Start Date: 05/04/18 Status: Ordered ranitidine 150 mg oral tablet 150 mg=1 tab, PO, BID, 0 Refill(s) Start Date: 05/04/18 Status: Ordered Results Most recent to 1 2 oldest [Reference Range]: eGFR 61 mL/min/1.73m2 1 56 mL/min/1.73m2 2 *NA* *NA* (05/04/18 7:30 AM) (05/04/18 6:49 AM) AGAP [10.0-20.0 12.3 mEq/L mEq/L] (05/04/18 6:49 AM) BUN [7-22 mg/dL] 18 mg/dL (05/04/18 6:49 AM) Calcium Lvl 9.0 mg/dL [8.5-10.5 mg/dL] (05/04/18 6:49 AM) Chloride Lvl [95-109 102 mEq/L mEq/L] (05/04/18 6:49 AM) CO2 [24-32 mEq/L] 27 mEq/L (05/04/18 6:49 AM) Creatinine Lvl 1.07 mg/dL [0.50-1.40 mg/dL] (05/04/18 6:49 AM) Glucose Lvl [70-99 126 mg/dL mg/dL] *HI* (05/04/18 6:49 AM) Potassium Lvl 3.3 mEq/L [3.5-5.1 mEq/L] *LOW* (05/04/18 6:49 AM) Sodium Lvl [135-145 138 mEq/L mEq/L] (05/04/18 6:49 AM) POC Creatinine 1.0 mg/dL [0.5-1.4 mg/dL] (05/04/18 7:30 AM) 1Result Comment: The eGFR is calculated using the [...] from the National Kidney Disease Education Program ( NKDEP) which additionally recommends that when the eGFR is used in patients with extremes of body mass index for purposes of drug dosing, the eGFR should be mul tiplied by the estimated BMI. 2Result Comment: The eGFR is calculated using the [...] from the National Kidney Disease Education Program ( NKDEP) which additionally recommends that when the eGFR is used in patients with extremes of body mass index for purposes of drug dosing, the eGFR should be mul tiplied by the estimated BMI. Immunizations No data available for this section Procedures Procedure Date Related Diagnosis Body Site Status Procedure 05/03/18 Completed Operation 11/21/17 Completed Appendectomy Completed Hysterectomy Completed Social History Social History Type Response Substance Abuse Use: None. Alcohol Never Smoking Status Never smoker; Lives with someone who smokes; Cigarette Smoking Last 365 Days No; Reg Smoking Cessation Counseling No entered on: 05/04/18 Assessment and Plan No data available for this section
--- OUTSIDE RECORDS SUMMARY | 2018-11-28 05:54 | XMS REPORT | CCD ---
Author Author Auto Generated Organization [facility] Address Unknown Phone Unavailable Care Team Providers Care Set Designer Name Role Phone Mary Ellen Winn RP Allergies, Adverse Reactions, Alerts Substance Reaction Status NKDA Active
--- OUTSIDE RECORDS SUMMARY | 2018-11-28 05:54 | XMS REPORT | Summary of Care ---
Author Author [facility] Organization [facility] Address Unknown Phone Unavailable Care Team Providers Care General Ledger Accountant Name Role Phone Jennifer Ryannregla Betancourt PCP Encounter HQ Armani_hero(FIN) [id number] Date(s): 04/17/18 - 04/17/18 [facility] [address] [place] [address]- Encounter Diagnosis Localized swelling, mass and lump, trunk (Final) - 04/20/18 Localized enlarged lymph nodes (Final) - Discharge Disposition: Home or Self Care Attending Physician: Octavia Larson Referring Physician: Octavia Larson Vital Signs No data available for this section Problem List Condition Effective Dates Status Health Status Informant Acid Active reflux(Confirmed) Arthritis(Confirmed) Active Shingles(Confirmed) Resolved Hypercholesterolemia Active (Confirmed) Hypertension(Confirm Active ed) Urinary Active frequency(Confirmed) Allergies, Adverse Reactions, Alerts No Known Medication Allergies Medications No data available for this section [...]
--- OUTSIDE RECORDS SUMMARY | 2018-11-28 05:54 | XMS REPORT | CCD ---
Author Author Auto Generated Organization [facility] Address Unknown Phone Unavailable Care Team Providers Care Overcoil Stepper Name Role Phone Rylee Rodriguez RP Allergies, Adverse Reactions, Alerts Substance Reaction Status NKDA Active
--- OUTSIDE RECORDS SUMMARY | 2018-11-28 05:54 | XMS REPORT | CCD ---
Author Author Auto Generated Organization [facility] Address Unknown Phone Unavailable Care Team Providers Care Metal Grader Name Role Phone Rylee Rodriguez RP Allergies, Adverse Reactions, Alerts Substance Reaction Status NKDA Active Problem List Condition Effective Dates Status Acid reflux Resolved Hernia Resolved Hypertension Resolved
--- OUTSIDE RECORDS SUMMARY | 2018-11-28 05:54 | XMS REPORT | Summary of Care ---
Author Organization Unknown Address Unknown Phone Unavailable Encounter HQ Encntr_caroleemoe(SASHA) [id number] Date(s): 07/06/14 - 07/06/14 [facility] [address] [place] [address]- [phone] Discharge Disposition: Home Physician Attending: Rylee Rodriguez MD Physician_Referring: Rylee Rodriguez MD Vital Signs No data available for this section Problem List Condition Effective Dates Status Health Status Informant Acid Resolved reflux(Confirmed) Hernia(Confirmed) Resolved Hypertension(Confirm Resolved ed) Allergies, Adverse Reactions, Alerts Substance Reaction Severity Status NKDA Active Medications No data available for this section Results No data available for this section Immunizations No data available for this section Procedures No data available for this section Social History No data available for this section Assessment and Plan No data available for this section
--- OUTSIDE RECORDS SUMMARY | 2018-11-28 05:54 | XMS REPORT | CCD ---
Author Author Auto Generated Organization [facility] Address Unknown Phone Unavailable Care Team Providers Care Learning And Development Director Name Role Phone Richmond Barreto CP Allergies, Adverse Reactions, Alerts Substance Reaction Status NKDA Active Problem List Condition Effective Dates Status Acid reflux Resolved Hernia Resolved Hypertension Resolved Vital Signs Most recent to oldest [Reference Range]: 1 2 3 Temperature Oral [96.4-99.1 DegF] 98.4 DegF (01/16/2013 05:19:00) 98.4 DegF (01/16/2013 02:42:00) Systolic Blood Pressure [90-140 mmHg] 150 mmHg *HI* (01/16/2013 05:19:00) 155 mmHg *HI* (01/16/2013 02:42:00) 167 mmHg *HI* (01/16/2013 00:50:00) Diastolic Blood Pressure [60-90 mmHg] 76 mmHg (01/16/2013 05:19:00) 60 mmHg (01/16/2013 02:42:00) 86 mmHg (01/16/2013 00:50:00) Respiratory Rate [14-20 BRMIN] 18 BRMIN (01/16/2013 05:19:00) 18 BRMIN (01/16/2013 02:42:00) 18 BRMIN (01/16/2013 00:50:00) Peripheral Pulse Rate [60-100 bpm] 68 bpm (01/16/2013 05:19:00) 60 bpm (01/16/2013 02:42:00) 76 bpm (01/16/2013 00:50:00) Procedures Procedures Date Related Diagnosis Appendectomy Hysterectomy
--- OUTSIDE RECORDS SUMMARY | 2018-11-28 05:54 | XMS REPORT | Summary of Care ---
Author Author [facility] Organization [facility] Address Unknown Phone Unavailable Encounter HQ Armani_hero(FIN) [id number] Date(s): 03/11/18 - 03/11/18 [facility] [address] [place] [address]- Encounter Diagnosis Encounter for screening mammogram for malignant neoplasm of breast (Final) - 03/17/18 Discharge Disposition: Home or Self Care Attending Physician: Rylee Rodriguez MD Referring Physician: Rylee Rodriguez MD Vital Signs No data [...]
--- OUTSIDE RECORDS SUMMARY | 2018-11-28 05:54 | XMS REPORT | CCD ---
Author Author Auto Generated Organization [facility] Address Unknown Phone Unavailable Care Team Providers Care Satellite Instruction Facilitator Name Role Phone Rylee Rodriguez RP Allergies, Adverse Reactions, Alerts Substance Reaction Status NKDA Active Problem List Condition Effective Dates Status Acid reflux Resolved Hernia Resolved Hypertension Resolved
--- OUTSIDE RECORDS SUMMARY | 2018-11-28 05:55 | XMS REPORT | Summary of Care ---
Author Author [facility] Organization [facility] Address Unknown Phone Unavailable Encounter HQ Dorientr_hero(FIN) [id number] Date(s): 09/01/16 - 09/01/16 [facility] [address] [place] [address]- Discharge Disposition: Home or Self Care Referring Physician: Mikala Brooks Vital Signs No data available for this [...]
--- OUTSIDE RECORDS SUMMARY | 2018-11-28 05:55 | XMS REPORT | Summary of Care ---
Author Author [facility] Organization [facility] Address Unknown Phone Unavailable Encounter MOSHE Yoon(SASHA) [id number] Date(s): 09/24/15 - 09/25/15 [facility] [address] [place] [address]- [phone] Discharge Diagnosis: Chest pain Discharge Diagnosis: Abdominal pain Discharge Disposition: Home Attending Physician: Golden Olson MD Vital Signs 1 2 3 Most recent to oldest [Reference Range]: 97.8 DegF (09/25/15 7:45 AM) 97.6 DegF (09/25/15 2:21 AM) 97.6 DegF (09/24/15 10:08 PM) Temperature Oral [96.4-99.1 DegF] 162/57 mmHg *HI* (09/25/15 7:45 AM) 180/73 mmHg *HI* (09/25/15 7:09 AM) 201/81 mmHg *HI* (09/25/15 5:49 AM) Blood Pressure [90-140/60-90 mmHg] 18 BRMIN (09/25/15 7:45 AM) 18 BRMIN (09/25/15 7:09 AM) 18 BRMIN (09/25/15 5:49 AM) Respiratory Rate [14-20 BRMIN] 59 bpm *LOW* (09/25/15 7:45 AM) 66 bpm (09/25/15 7:09 AM) 63 bpm (09/25/15 5:49 AM) Peripheral Pulse Rate [60-100 bpm] 109.091 kg (09/24/15 10:08 PM) Weight Problem List Condition Effective Dates Status Health Status Informant Acid Resolved reflux(Confirmed) Hernia(Confirmed) Resolved Hypercholesterolemia Active (Confirmed) Hypertension(Confirm Active ed) Allergies, Adverse Reactions, Alerts Substance Reaction Severity Status NKDA Active Medications aspirin 81 mg tablet, chewable 324 mg, 4 tab, Route: PO, Drug form: CHEWTAB, ONCE, Dosing Weight 109.091, kg, P riority: STAT, Start date: 09/25/15 5:48:00 CDT, Stop date: 09/25/15 5:48:00 CDT Notes: Take with food. Start Date: 09/25/15 Stop Date: 09/25/15 Status: Completed cloNIDine 0.1 mg oral tablet 0.1 mg, 1 tab, Route: PO, Drug form: TAB, ONCE, Dosing Weight 109.091, kg, Prior ity: STAT, Start date: 09/25/15 6:11:00 CDT, Stop date: 09/25/15 6:11:00 CDT Notes: (Same As: Catapres) Start Date: 09/25/15 Stop Date: 09/25/15 Status: Completed GI cocktail 30 mL, Route: PO, Drug Form: SUSP, Dosing Weight 109.091, kg, ONCE, STAT, Start date: 09/25/15 6:12:00 CDT, Stop date: 09/25/15 6:12:00 CDT Notes: G.I. Cocktail=antacid with simethicone 22.5 mL - lidocaine viscous 7.5 mL Start Date: 09/25/15 Stop Date: 09/25/15 Status: Completed hydrALAZINE 10 mg, 0.5 mL, Route: IV, Drug form: INJ, ONCE, Dosing Weight 109.091, kg, Start date: 09/25/15 4:47:00 CDT, Stop date: 09/25/15 4:47:00 CDT Notes: (Same as: Apresoline)Push over 5 minutes Start Date: 09/25/15 Stop Date: 09/25/15 Status: Completed Maalox Max oral suspension 5 ml, PO, QID, PRN Indigestion, X 10 day, # 200 ml, 0 Refill(s) Start Date: 09/25/15 Stop Date: 10/05/15 Status: Ordered Tylenol 650 mg, 2 tab, Route: PO, Drug form: TAB, ONCE, Dosing Weight 109.091, kg, Prior ity: STAT, Start date: 09/25/15 4:47:00 CDT, Stop date: 09/25/15 4:47:00 CDT Notes: Do not exceed 4 gm/day. (Same as: Tylenol) Start Date: 09/25/15 Stop Date: 09/25/15 Status: Completed Results ELECTROLYTES Most recent to 1 2 oldest [Reference Range]: Sodium Lvl [135-145 139 mEq/L mEq/L] (09/25/15 3:33 AM) Potassium Lvl 4.0 mEq/L [3.5-5.1 mEq/L] (09/25/15 3:33 AM) Chloride Lvl [95-109 104 mEq/L mEq/L] (09/25/15 3:33 AM) CO2 [24-32 mEq/L] 27 mEq/L (09/25/15 3:33 AM) AGAP [10.0-20.0 12.0 mEq/L mEq/L] (09/25/15 3:33 AM) CHEM PANEL Most recent to 1 2 oldest [Reference Range]: Creatinine Lvl 0.94 mg/dL [0.50-1.40 mg/dL] (09/25/15 3:33 AM) eGFR 67 mL/min/1.73m2 1 *NA* (09/25/15 3:33 AM) BUN [7-22 mg/dL] 11 mg/dL (09/25/15 3:33 AM) Glucose Lvl [70-99 118 mg/dL mg/dL] *HI* (09/25/15 3:33 AM) Calcium Lvl 9.2 mg/dL [8.5-10.5 mg/dL] (09/25/15 3:33 AM) 1Result Comment: The eGFR is calculated [...] be mul tiplied by the estimated BMI. CARDIAC ENZYMES Most recent to 1 2 oldest [Reference Range]: Total CK [12-191 50 unit/L unit/L] (09/25/15 3:33 AM) Troponin-I <0.02 ng/mL <0.02 ng/mL [0.00-0.40 ng/mL] (09/25/15 6:37 AM) (09/25/15 3:33 AM) URINE AND STOOL Most recent to 1 2 oldest [Reference Range]: UA Turbidity [Clear] Clear (09/25/15 3:33 AM) UA Color Ltyellow *NA* (09/25/15 3:33 AM) UA pH [5.0-8.0] 6.0 (09/25/15 3:33 AM) UA Spec Grav 1.006 [<=1.030] (09/25/15 3:33 AM) UA Glucose [Negative Negative mg/dL mg/dL] *NA* (09/25/15 3:33 AM) UA Blood [Negative] Negative (09/25/15 3:33 AM) UA Ketones [Negative Negative mg/dL mg/dL] *NA* (09/25/15 3:33 AM) UA Protein [Negative Negative mg/dL mg/dL] (09/25/15 3:33 AM) UA Urobilinogen <=1.0 mg/dL [0.1-1.0 mg/dL] *NA* (09/25/15 3:33 AM) UA Bili [Negative] Negative *NA* (09/25/15 3:33 AM) UA Leuk Est Negative [Negative] (09/25/15 3:33 AM) UA Nitrite Negative [Negative] (09/25/15 3:33 AM) UA WBC [0-5 /HPF] 1 /HPF (09/25/15 3:33 AM) UA RBC [0-2 /HPF] 1 /HPF (09/25/15 3:33 AM) UA Bacteria [None Occasional /HPF Seen /HPF] *NA* (09/25/15 3:33 AM) UA Sq Epi [Few /LPF] Occasional /LPF *NA* (09/25/15 3:33 AM) HEMATOLOGY Most recent to 1 2 oldest [Reference Range]: WBC [3.7-10.4 K/CMM] 7.1 K/CMM (09/25/15 3:33 AM) RBC [4.20-5.40 4.53 M/CMM M/CMM] (09/25/15 3:33 AM) Hgb [12.0-16.0 g/dL] 12.5 g/dL (09/25/15 3:33 AM) Hct [36.0-48.0 %] 38.5 % (09/25/15 3:33 AM) MCV [80.0-98.0 fL] 84.9 fL (09/25/15 3:33 AM) MCH [27.0-31.0 pg] 27.6 pg (09/25/15 3:33 AM) MCHC [32.0-36.0 32.5 g/dL g/dL] (09/25/15 3:33 AM) RDW [11.5-14.5 %] 15.1 % *HI* (09/25/15 3:33 AM) Platelet [133-450 214 K/CMM K/CMM] (09/25/15 3:33 AM) MPV [7.4-10.4 fL] 9.6 fL (09/25/15 3:33 AM) Segs [45.0-75.0 %] 68.4 % (09/25/15 3:33 AM) Lymphocytes 22.7 % [20.0-40.0 %] (09/25/15 3:33 AM) Monocytes [2.0-12.0 7.6 % %] (09/25/15 3:33 AM) Eosinophils [0.0-4.0 0.3 % %] (09/25/15 3:33 AM) Basophils [0.0-1.0 1.0 % %] (09/25/15 3:33 AM) Segs-Bands # 4.8 K/CMM [1.5-8.1 K/CMM] (09/25/15 3:33 AM) Lymphocytes # 1.6 K/CMM [1.0-5.5 K/CMM] (09/25/15 3:33 AM) Monocytes # [0.0-0.8 0.5 K/CMM K/CMM] (09/25/15 3:33 AM) Basophils # [0.0-0.2 0.1 K/CMM K/CMM] (09/25/15 3:33 AM) Immunizations No data available for this section Procedures Procedure Date Related Diagnosis Body Site Appendectomy Hysterectomy Social History Social History Type Response Smoking Status Never smoker; Exposure to Tobacco Smoke None; Cigarette Smoking Last 365 Days No; Reg Smoking Cessation Counseling No Assessment and Plan No data available for this section
--- OUTSIDE RECORDS SUMMARY | 2018-11-28 05:55 | XMS REPORT ---
Author Author Earline Ren Organization [employer] Address Unknown Phone Unavailable Care Team Providers Care Dump Motor Operator Name Role Phone Earline Ren CP Unavailable Allergies No Known Allergies Problems Problem Type Condition Code Onset Dates Condition Status Problem Allergic sinusitis J30.9 Active Problem History of cholecystectomy Z90.49 Active Problem Gastroesophageal reflux disease, esophagitis presence not specified K21.9 Active Problem Primary osteoarthritis of right knee M17.11 Active Problem Postmenopausal Z78.0 Active Problem Morbid obesity E66.01 Active Assessment HLD (hyperlipidemia) E78.5 Active Problem Gastroesophageal reflux disease without esophagitis K21.9 Active Problem Irritable bowel syndrome with diarrhea K58.0 Active Problem 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 Problem 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, initial encounter T85.199A Active Problem Bladder spasms N32.89 Active Problem HLD (hyperlipidemia) E78.5 Active Problem ANA LAURA (obstructive sleep apnea) G47.33 Active Problem Fatty liver K76.0 Active Problem Vitamin D deficiency E55.9 Active Problem Osteoarthritis M19.90 Active Problem Statin intolerance Z78.9 Active Problem Prediabetes R73.09 Active Problem Essential hypertension I10 Active Problem Obesity E66.9 Active Problem Hemorrhoids K64.9 Active Medications Medication Code System Code Instructions Start Date End Date Status Dosage Ezetimibe [facility] 55615240137 10MG by mouth Once a day Active 1 tablet Results No Known Results Summary Purpose [employer] Submission
--- OUTSIDE RECORDS SUMMARY | 2018-11-28 05:56 | XMS REPORT ---
Author Author Earline Ren Organization [employer] Address Unknown Phone Unavailable Care Team Providers Care Shuttle Veneering Supervisor Name Role Phone Earline Ren CP Unavailable Allergies No Known Allergies Problems Problem Type Condition Code Onset Dates Condition Status Problem Allergic sinusitis J30.9 Active Problem History of cholecystectomy Z90.49 Active Problem Gastroesophageal reflux disease, esophagitis presence not specified K21.9 Active Problem Primary osteoarthritis of right knee M17.11 Active Problem Postmenopausal Z78.0 Active Problem Morbid obesity E66.01 Active Assessment Essential hypertension I10 Active Problem Gastroesophageal reflux disease without esophagitis [...] M19.90 Active Problem Statin intolerance Z78.9 Active Assessment Gastroesophageal reflux disease, esophagitis presence not specified K21.9 Active Problem Prediabetes R73.09 Active Problem Essential hypertension I10 Active Assessment Prediabetes R73.09 Active Problem Obesity E66.9 Active Problem Hemorrhoids K64.9 Active Medications Medication Code System Code Instructions Start Date End Date Status Dosage Losartan Potassium-HCTZ NDC 53568176473 100-25 MG by mouth Once a day Active 1 tablet MetFORMIN HCl ER ND 34772195628 500 mg by mouth Once a day Active 1 tablet with evening meal Pantoprazole Sodium ND 96307215068 40 mg by mouth Once a day Active 1 tablet Amlodipine Besylate ND 12431736283 10 mg by mouth Once a day Active 1 tablet Results No Known Results Summary Purpose [employer] Submission
--- OUTSIDE RECORDS SUMMARY | 2018-11-28 05:56 | XMS REPORT ---
Author Author Mikala Brooks Organization eClinical[employer] Address Unknown Phone Unavailable Care Team Providers Care Dredge Lever Operator Name Role Phone Mikala Brooks CP Unavailable Allergies No Known Allergies Problems Problem Type Condition Code Onset Dates Condition Status Problem Postmenopausal Z78.0 Active Problem Chronic edema R60.9 Active Problem Fatty liver K76.0 Active Problem Allergic sinusitis J30.9 Active Problem Essential hypertension I10 Active Problem Gastroesophageal reflux disease, esophagitis presence not specified K21.9 Active Problem ANAID (generalized anxiety disorder) F41.1 Active Problem Vitamin D deficiency E55.9 Active Problem HLD (hyperlipidemia) E78.5 Active Problem Osteoarthritis M19.90 Active Problem Hemorrhoids K64.9 Active Problem Obesity E66.9 Active Assessment Prediabetes R73.09 Active Problem Statin intolerance Z78.9 Active Problem ANA LAURA (obstructive sleep apnea) G47.33 Active Problem Prediabetes R73.09 Active Medications Medication Code System Code Instructions Start Date End Date Status Dosage MetFORMIN HCl ER [facility] [address]-84 500 MG Orally Once a day Active 1 tablet with evening meal Results No Known Results Summary Purpose eClinicalWorks Submission
--- OUTSIDE RECORDS SUMMARY | 2018-11-28 05:56 | XMS REPORT ---
Author Author Mikala Brooks [facility] eClinicalWorks Address Unknown Phone Unavailable Care Team Providers Care Etl Architect Name Role Phone Mikala Brooks Unavailable Allergies, Adverse Reactions, Alerts Substance Reaction Event Type N.K.D.A. Info Not Available Non Drug Allergy Problems Problem Type Condition Code Onset Dates Condition Status Problem Vitamin D deficiency E55.9 Active Problem Chronic edema R60.9 Active Problem HLD (hyperlipidemia) E78.5 Active Problem Gastroesophageal reflux disease, esophagitis presence not specified K21.9 Active Problem Allergic sinusitis J30.9 Active Problem History of cholecystectomy Z90.49 Active Problem ANAID (generalized anxiety disorder) F41.1 Active Problem Statin intolerance Z78.9 Active Problem Hemorrhoids K64.9 Active Problem Essential hypertension I10 Active Assessment Diarrhea, unspecified type R19.7 Active Assessment History of cholecystectomy Z90.49 Active Assessment Cough R05 Active Assessment Hemorrhoids, unspecified hemorrhoid type K64.9 Active Problem Obesity E66.9 Active Problem Osteoarthritis M19.90 Active Problem ANA LAURA (obstructive sleep apnea) G47.33 Active Problem Postmenopausal Z78.0 Active Problem Prediabetes R73.09 Active Problem Fatty liver K76.0 Active Medications Medication Code System Code Instructions Start Date End Date Status Dosage Amlodipine Besylate [facility] 85035691194 10 MG Orally Once a day Active 1 tablet Losartan Potassium-HCTZ [facility] 95999201236 100-25 MG Orally Once a day Active 1 tablet Proctosol HC ND 92033954185 2.5 % Rectal Twice a day NEEDED Mar 29, 2017 Apr 28, 2017 Active 1 application to affected area Amlodipine Besylate [facility] [address]-32 10MG Active TAKE ONE TABLET BY MOUTH ONCE DAILY Meclizine HCl ND 31056699734 25 MG Orally Q 6 hours Jun 15, 2016 Active 1 tablet as needed Bromfed DM [facility] 63372875993 30-2-10 MG/5ML Orally every 6 hrs Mar 29, 2017 Apr 05, 2017 Active 10 ml as needed MetFORMIN HCl ER [facility] 61693835248 500 MG Orally Once a day Active 1 tablet with evening meal Loratadine [facility] 85330288296 10 MG Orally Once a day Active 1 tablet Ezetimibe [facility] 24101064341 10MG Active TAKE ONE TABLET BY MOUTH ONCE DAILY Losartan Potassium-HCTZ [facility] [address]-28 100-25MG Active TAKE ONE TABLET BY MOUTH ONCE DAILY Meclizine HCl [facility] 68233018965 25 MG Orally Once a day Active 1 tablet as needed Sertraline HCl [facility] 35670030846 50 MG Orally Once a day Active 1 tablet Flonase [facility] 14923477859 50 MCG/ACT Nasally Once a day Jul 05, 2016 Active 1 spray in each nostril Sertraline HCl [facility] [address]-26 50MG by mouth daily as needed Active TAKE ONE TABLET BY MOUTH ONCE DAILY Ranitidine HCl [facility] 0 Active not defined Zetia [facility] 17967056554 10 mg Orally Once a day July 29, 2016 Active 1 tablet Pantoprazole Sodium [facility] 64806119954 40 MG Orally Once a day Active 1 tablet Diazepam [facility] 30677420082 5 MG Orally 1 tablet PRN prior to flight as needed Active 1 tablet as needed Vital Signs Date/Time: Mar 29, 2017 BMI 37.12 Index Weight 230 lbs Height 66 in Cardiac Monitoring Heart Rate 74 /min Blood Pressure Diastolic 78 mm Hg Blood Pressure Systolic 114 mm Hg Results No Known Results Summary Purpose eClinicalWorks Submission
--- OUTSIDE RECORDS SUMMARY | 2018-11-28 05:56 | XMS REPORT ---
Author Author Earline Ren [facility] eClinicalWorks Address Unknown Phone Unavailable Care Team Providers Care Salesperson Furniture Name Role Phone Earline Ren CP Unavailable Allergies, Adverse Reactions, Alerts Substance Reaction Event Type Levaquin knee pain Non Drug Allergy Problems Problem Type Condition Code Onset Dates Condition Status Assessment Prediabetes R73.09 Active Assessment HLD (hyperlipidemia) E78.5 Active Assessment Essential hypertension I10 Active Problem Essential hypertension I10 Active Assessment Acute URI J06.9 Active Problem Hemorrhoids K64.9 Active Assessment Generalized abdominal pain R10.84 Active Problem Allergic sinusitis J30.9 Active Problem History of cholecystectomy Z90.49 Active Problem Gastroesophageal reflux disease, esophagitis presence not specified K21.9 Active Problem Primary osteoarthritis of right knee M17.11 Active Problem Morbid obesity E66.01 Active Problem Postmenopausal Z78.0 Active Problem Gastroesophageal reflux disease without esophagitis K21.9 Active Assessment Gastroesophageal reflux disease without esophagitis K21.9 Active [...] Z78.9 Active Problem Prediabetes R73.09 Active Problem Obesity E66.9 Active Medications Medication Code System Code Instructions Start Date End Date Status Dosage Lyrica ND 87873673096 75 MG Orally Twice a day Jul 04, 2017 Active 1 capsule Bromfed DM ND 10115636480 30-2-10 MG/5ML Orally every 4 hrs Jun 28, 2018 Jul 01, 2018 Active 10 ml as needed Lidocaine ND 20951608151 5 % Externally Three times a day Jun 20, 2017 Active 1 application to affected area as needed Motion Sickness Relief [facility] 96813399868 50 MG Orally every 6 hrs Active 1 tablet as needed MetFORMIN HCl ER [facility] 83743590929 500 mg by mouth Once a day Active 1 tablet with evening meal ProAir HFA [facility] 71917349263 108 (90 Base) MCG/ACT Inhalation every 6 hrs prn Dec 27, 2017 Active 2 puffs Pantoprazole Sodium [facility] 81911323313 40 mg by mouth Once a day Active 1 tablet Voltaren [facility] 48220661140 1 % Transdermal apply 4gm to right knee q 6hrs prn Apr 21, 2018 October 18, 2018 Active as directed Loratadine [facility] 06565798245 10 MG Orally Once a day Active 1 tablet Norel AD [facility] 68311282615 4-10-325 MG Orally every 4-6 hours Jan 02, 2018 Active 1 tablet as needed Voltaren [facility] 40339713733 1 % Transdermal apply to right knee every 6 hours if needed Apr 19, 2018 November 15, 2018 Active as directed Meclizine HCl [facility] 20290040848 25 MG Orally Once a day Active 1 tablet as needed Flonase [facility] 52319359011 50 MCG/ACT Nasally Once a day Jan 02, 2018 Active 2 spray in each nostril Ezetimibe [facility] 99522288892 10MG by mouth Once a day Active 1 tablet Losartan Potassium-HCTZ [facility] 59880678658 100-25 MG by mouth Once a day Active 1 tablet Flonase [facility] 75517295961 50 MCG/ACT Nasally Once a day Jul 05, 2016 Active 1 spray in each nostril Amlodipine Besylate [facility] 64831336915 10 mg by mouth Once a day Active 1 tablet Ranitidine HCl [facility] 32221851891 150 MG Orally daily Active 2 tablet Dicyclomine HCl [facility] 17291500451 10 MG Orally Four times a day Jun 28, 2018 July 28, 2018 Active 2 capsules Sertraline HCl [facility] 40074171769 50 MG Orally Once a day Active 1 tablet Vital Signs Date/Time: Jun 28, 2018 BMI 38.25 Index Weight 237 lbs Height 66 in Cardiac Monitoring Heart Rate 78 /min Blood Pressure Diastolic 78 mm Hg Blood Pressure Systolic 132 mm Hg Results Name Result Date Reference Range Unit Abnormality Flag TSH ----TSH 1.640 20180628 0.450-4.500 uIU/mL Urinalysis, Routine ----WBC Esterase Negative [id number] Negative ----Appearance Clear [id number] Clear ----Microscopic Examination Comment [id number] ----Glucose Negative [id number] Negative ----Nitrite, Urine Negative 20180628 Negative ----Protein Negative [id number] Negative/Trace ----Urobilinogen,Semi-Qn 0.2 70292867 0.2-1.0 mg/dL ----Specific [place] 1.020 20180628 1.005-1.030 ----Urine-Color Yellow 20180628 Yellow ----pH 5.5 20180628 5.0-7.5 ----Bilirubin Negative 20180628 Negative ----Ketones Negative 20180628 Negative ----Occult Blood Negative 20180628 Negative H pylori urea Breath Test (Adult) ----H pylori Breath Test Negative 20180628 Negative Comp. Metabolic Panel (14) ----Sodium 141 20180628 134-144 mmol/L ----BUN/Creatinine Ratio 14 2018062828 ----Chloride 96 20180628 96-106 mmol/L ----Potassium 3.7 20180628 3.5-5.2 mmol/L ----Calcium 9.9 75669259 8.7-10.3 mg/dL ----Protein, Total 7.4 20180628 6.0-8.5 g/dL ----Carbon Dioxide, Total 25 20180628 20-29 mmol/L ----A/G Ratio 1.8 20180628 1.2-2.2 ----eGFR If NonAfricn Am 54 44941913 >59 mL/min/1.73 L ----Bilirubin, Total 0.9 16660741 0.0-1.2 mg/dL ----eGFR If Africn Am 62 83575417 >59 mL/min/1.73 ----BUN 16 20180628 8-27 mg/dL ----Albumin 4.8 85790790 3.6-4.8 g/dL ----Globulin, Total 2.6 93896835 1.5-4.5 g/dL ----Creatinine 1.11 30993334 0.57-1.00 mg/dL H ----ALT (SGPT) 25 20180628 0-32 IU/L ----Glucose 116 20180628 65-99 mg/dL H ----Alkaline Phosphatase 81 20180628 39-117 IU/L ----AST (SGOT) 21 20180628 0-40 IU/L Lipid Panel ----LDL Cholesterol Calc 152 83579566 0-99 mg/dL H ----VLDL Cholesterol Timmy 40 55503285 5-40 mg/dL ----HDL Cholesterol 61 20180628 >39 mg/dL ----Triglycerides 199 81999155 0-149 mg/dL H ----Cholesterol, Total 253 20180628 100-199 mg/dL H Hemoglobin A1c ----Hemoglobin A1c 5.9 74300713 4.8-5.6 % H CBC With Differential/Platelet ----Hemoglobin 13.5 99639230 11.1-15.9 g/dL ----RBC 4.75 02345890 3.77-5.28 x10E6/uL ----MCV 85 19055862 79-97 fL ----Hematocrit 40.4 18107260 34.0-46.6 % ----MCHC 33.4 95544009 31.5-35.7 g/dL ----MCH 28.4 02747666 26.6-33.0 pg ----Platelets 216 47925995 150-379 x10E3/uL ----RDW 14.8 88428981 12.3-15.4 % ----Neutrophils 61 20180628 Not Estab. % ----Monocytes 6 78254792 Not Estab. % ----Lymphs 32 76322947 Not Estab. % ----Basos 0 06516408 Not Estab. % ----Eos 1 64664272 Not Estab. % ----Immature Grans (Abs) 0.0 93528290 0.0-0.1 x10E3/uL ----Lymphs (Absolute) 2.1 15584154 0.7-3.1 x10E3/uL ----WBC 6.6 98353382 3.4-10.8 x10E3/uL ----Immature Granulocytes 0 20180628 Not Estab. % ----Neutrophils (Absolute) 4.0 20180628 1.4-7.0 x10E3/uL ----Baso (Absolute) 0.0 20180628 0.0-0.2 x10E3/uL ----Monocytes(Absolute) 0.4 20180628 0.1-0.9 x10E3/uL ----Eos (Absolute) 0.1 20180628 0.0-0.4 x10E3/uL Summary Purpose eClinicalWorks Submission
--- OUTSIDE RECORDS SUMMARY | 2018-11-28 05:57 | XMS REPORT ---
Author Author Mikala Brooks [facility] eClinicalWorks Address Unknown Phone Unavailable Care Team Providers Care Transportation Planning Engineer Name Role Phone Mikala Brooks Unavailable Allergies, [...] (hyperlipidemia) E78.5 Active Problem Osteoarthritis M19.90 Active Assessment Vitamin D deficiency E55.9 Active Assessment HLD (hyperlipidemia) E78.5 Active Assessment Pelvic pain R10.2 Active Assessment Gastroesophageal reflux disease, esophagitis presence not specified K21.9 Active Problem Hemorrhoids K64.9 Active Problem Obesity E66.9 Active Assessment Essential hypertension I10 Active Problem Statin intolerance Z78.9 Active Problem ANA LAURA (obstructive sleep apnea) G47.33 Active Problem Prediabetes R73.09 Active Medications Medication Code System Code Instructions Start Date End Date Status Dosage Loratadine [facility] [address]-93 10 MG Orally Once a day Active 1 tablet Ezetimibe [facility] 97960585937 10MG Active TAKE ONE TABLET BY MOUTH ONCE DAILY Pantoprazole Sodium [facility] [address]-70 40 MG Orally Once a day Active 1 tablet Flonase [facility] [address]-51 50 MCG/ACT Nasally Once a day Jul 05, 2016 Active 1 spray in each nostril Diazepam [facility] [address]-11 5 MG Orally 1 tablet PRN prior to flight as needed Active 1 tablet as needed Zetia [facility] [address]-15 10 MG Orally Once a day July 29, 2016 Active 1 tablet Meclizine HCl [facility] [address]-43 25 MG Orally Once a day Active 1 tablet as needed Losartan Potassium-HCTZ [facility] [address]-35 100-25 MG Orally Once a day Active 1 tablet Sertraline HCl [facility] [address]-50 50 MG Orally Once a day Active 1 tablet Losartan Potassium-HCTZ [facility] [address]-91 100-25MG Active TAKE ONE TABLET BY MOUTH ONCE DAILY Meclizine HCl [facility] [address]-38 25 MG Orally Q 6 hours Jun 15, 2016 Active 1 tablet as needed Amlodipine Besylate [facility] [address]-32 10 MG Orally Once a day Active 1 tablet MetFORMIN HCl ER [facility] [address]-10 500 MG Orally Once a day Active 1 tablet with evening meal Ranitidine HCl ND 0 Active not defined Amlodipine Besylate [facility] [address]-94 10MG Active TAKE ONE TABLET BY MOUTH ONCE DAILY Vital Signs Date/Time: Jan 18, 2017 BMI 37.93 Index Weight 235 lbs Height 66 in Cardiac Monitoring Heart Rate 73 /min Blood Pressure Diastolic 74 mm Hg Blood Pressure Systolic 126 mm Hg Results No Known Results Summary Purpose eClinicalWorks Submission
--- OUTSIDE RECORDS SUMMARY | 2018-11-28 05:57 | XMS REPORT ---
Author Author Mary Ellen Weems [facility] eClinicalWorks Address Unknown Phone Unavailable Care Team Providers Care Geospatial Extractor Analysis Name Role Phone Mary Ellen Weems CP Unavailable Allergies No Known Allergies Problems Problem Type Condition Code Onset Dates Condition Status Problem Fatty liver K76.0 Active Problem HLD (hyperlipidemia) E78.5 Active Problem Vitamin D deficiency E55.9 Active Problem Allergic sinusitis J30.9 Active Problem Hemorrhoids K64.9 Active Problem Gastroesophageal reflux disease, esophagitis presence not specified K21.9 Active Problem Statin intolerance Z78.9 Active Problem Chronic edema R60.9 Active Problem Essential hypertension I10 Active Problem ANAID (generalized anxiety disorder) F41.1 Active Problem Prediabetes R73.09 Active Problem Obesity E66.9 Active Assessment HLD (hyperlipidemia) E78.5 Active Problem Osteoarthritis M19.90 Active Problem ANA LAURA (obstructive sleep apnea) G47.33 Active Problem Postmenopausal Z78.0 Active Medications Medication Code System Code Instructions Start Date End Date Status Dosage Zetia [facility] 18260152443 10 mg Orally Once a day July 29, 2016 Active 1 tablet Results No Known Results Summary Purpose eClinicalWorks Submission
--- OUTSIDE RECORDS SUMMARY | 2018-11-28 05:58 | XMS REPORT ---
Author Author Mikala Brooks [facility] eClinicalWorks Address Unknown Phone Unavailable Care Team Providers Care Info Analyst Name Role Phone Mikala Brooks Unavailable Allergies, Adverse Reactions, Alerts Substance Reaction Event Type N.K.D.A. Info Not Available Non Drug Allergy Problems Problem Type Condition Code Onset Dates Condition Status Problem Vitamin D deficiency E55.9 Active Problem Chronic edema R60.9 Active Problem HLD (hyperlipidemia) E78.5 Active Problem Gastroesophageal reflux disease, esophagitis presence not specified K21.9 Active Assessment Obesity E66.9 Active Problem Allergic sinusitis J30.9 Active Assessment ANAID (generalized anxiety disorder) F41.1 Active Assessment Hemorrhoids, unspecified hemorrhoid type K64.9 Active Problem History of cholecystectomy Z90.49 Active Problem ANAID (generalized anxiety disorder) F41.1 Active Problem Statin intolerance Z78.9 Active Problem Hemorrhoids K64.9 Active Problem Essential hypertension I10 Active Assessment HLD (hyperlipidemia) E78.5 Active Assessment Essential hypertension I10 Active Assessment Prediabetes R73.09 Active Assessment Vitamin D deficiency E55.9 Active Problem Obesity E66.9 Active Problem Osteoarthritis M19.90 Active Problem ANA LAURA (obstructive sleep apnea) G47.33 Active Problem Postmenopausal Z78.0 Active Problem Prediabetes R73.09 Active Problem Fatty liver K76.0 Active Medications Medication Code System Code Instructions Start Date End Date Status Dosage Motion Sickness Relief [facility] 66176786791 50 MG Orally every 6 hrs Active 1 tablet as needed Amlodipine Besylate [facility] [address]-40 10MG Active TAKE ONE TABLET BY MOUTH ONCE DAILY Sertraline HCl [facility] [address]-54 50MG by mouth daily as needed Active TAKE ONE TABLET BY MOUTH ONCE DAILY Sertraline HCl [facility] 03429030043 50 MG Orally Once a day Active 1 tablet Lidocaine [facility] 22214563402 5 % Externally Three times a day Jun 20, 2017 Active 1 application to affected area as needed Zetia [facility] 08136825921 10 mg Orally Once a day July 29, 2016 Active 1 tablet Rectiv [facility] 89118478025 0.4 % Rectal apply 1 inch intra annally every 12 hrs Jun 20, 2017 August 19, 2017 Active as directed Meclizine HCl [facility] 43647311765 25 MG Orally Once a day Active 1 tablet as needed Meclizine HCl [facility] 74308742200 25 MG Orally Q 6 hours Jun 15, 2016 Active 1 tablet as needed Amlodipine Besylate [facility] 83769129615 10 mg Orally Once a day Active 1 tablet Pantoprazole Sodium [facility] 63652645092 40 MG Orally Once a day Active 1 tablet TobraDex [facility] 56360914312 0.3-0.1 % Ophthalmic Once a day Apr 19, 2017 Active 1 application MetFORMIN HCl ER [facility] 62375711760 500 mg Orally Once a day Active 1 tablet with evening meal Ezetimibe [facility] 49810405554 10MG Active TAKE ONE TABLET BY MOUTH ONCE DAILY Diazepam [facility] 79022025802 5 MG Orally 1 tablet PRN prior to flight as needed Active 1 tablet as needed Losartan Potassium-HCTZ [facility] [address]-74 100-25MG Active TAKE ONE TABLET BY MOUTH ONCE DAILY Loratadine [facility] 30122194103 10 MG Orally Once a day Active 1 tablet Flonase [facility] 43066472522 50 MCG/ACT Nasally Once a day Jul 05, 2016 Active 1 spray in each nostril Losartan Potassium-HCTZ [facility] 93470074789 100-25 MG Orally Once a day Active 1 tablet Anucort-HC [facility] 65854436768 25 MG Rectal twice a day Jun 20, 2017 July 18, 2017 Active 1 suppository Ranitidine HCl [facility] 0 Active not defined Vital Signs Date/Time: Jun 20, 2017 BMI 37.60 Index Weight 233 lbs Height 66 in Cardiac Monitoring Heart Rate 82 /min Blood Pressure Diastolic 86 mm Hg Blood Pressure Systolic 120 mm Hg Results No Known Results Summary Purpose eClinicalWorks Submission
--- OUTSIDE RECORDS SUMMARY | 2018-11-28 05:58 | XMS REPORT ---
Author Author Mikala Brooks [facility] eClinicalWorks Address Unknown Phone Unavailable Care Team Providers Care Brass Chaser Name Role Phone Mikala Brooks Unavailable Allergies, [...] Active Problem Essential hypertension I10 Active Assessment Hordeolum externum of right upper eyelid H00.011 Active Assessment Acute non-recurrent maxillary sinusitis J01.00 Active Problem Obesity E66.9 Active Problem Osteoarthritis M19.90 Active Problem ANA LAURA (obstructive sleep apnea) G47.33 Active Problem Postmenopausal Z78.0 Active Problem Prediabetes R73.09 Active Problem Fatty liver K76.0 Active Medications Medication Code System Code Instructions Start Date End Date Status Dosage Meclizine HCl [facility] 93495901396 25 MG Orally Q 6 hours Jun 15, 2016 Active 1 tablet as needed Sertraline HCl [facility] [address]-08 50MG by mouth daily as needed Active TAKE ONE TABLET BY MOUTH ONCE DAILY Proctosol HC [facility] 73726240688 2.5 % Rectal Twice a day NEEDED Mar 29, 2017 Apr 28, 2017 Active 1 application to affected area Ranitidine HCl ND 0 Active not defined Diazepam ND 23105029911 5 MG Orally 1 tablet PRN prior to flight as needed Active 1 tablet as needed Amlodipine Besylate ND 29045179096 10 MG Orally Once a day Active 1 tablet Loratadine [facility] 37700199179 10 MG Orally Once a day Active 1 tablet Zetia [facility] 16402736730 10 mg Orally Once a day July 29, 2016 Active 1 tablet Sertraline HCl [facility] 08562209071 50 MG Orally Once a day Active 1 tablet Ezetimibe [facility] 90516520478 10MG Active TAKE ONE TABLET BY MOUTH ONCE DAILY Losartan Potassium-HCTZ [facility] [address]-21 100-25MG Active TAKE ONE TABLET BY MOUTH ONCE DAILY Meclizine HCl [facility] 76169433732 25 MG Orally Once a day Active 1 tablet as needed Pantoprazole Sodium [facility] 66374773591 40 MG Orally Once a day Active 1 tablet Losartan Potassium-HCTZ [facility] 94615604926 100-25 MG Orally Once a day Active 1 tablet TobraDex [facility] 77277857476 0.3-0.1 % Ophthalmic Once a day Apr 19, 2017 Active 1 application Flonase [facility] 05894690579 50 MCG/ACT Nasally Once a day Jul 05, 2016 Active 1 spray in each nostril Amlodipine Besylate [facility] [address]-07 10MG Active TAKE ONE TABLET BY MOUTH ONCE DAILY MetFORMIN HCl ER [facility] 36759125021 500 MG Orally Once a day Active 1 tablet with evening meal Bactrim DS [facility] 97135530074 800-160 MG Orally Twice a day Apr 19, 2017 Apr 24, 2017 Active 1 tablet Vital Signs Date/Time: Apr 19, 2017 BMI 36.31 Index Weight 225 lbs Height 66 in Blood Pressure Diastolic 76 mm Hg Blood Pressure Systolic 118 mm Hg Results No Known Results Summary Purpose eClinicalWorks Submission
--- OUTSIDE RECORDS SUMMARY | 2018-11-28 05:58 | XMS REPORT ---
Author Author Octavia Larson [facility] eClinicalWorks Address Unknown Phone Unavailable Care Team Providers Care Entry Level Recruiter Name Role Phone Octavia Larson CP Unavailable Allergies, Adverse Reactions, Alerts Substance Reaction Event Type N.K.D.A. Info Not Available Non Drug Allergy Problems Problem Type Condition Code Onset Dates Condition Status Assessment Abnormal EKG R94.31 Active Assessment Herpes zoster without complication B02.9 Active Assessment Gastroesophageal reflux disease, esophagitis presence not specified K21.9 Active Assessment Allergic sinusitis J30.9 Active Problem Obesity E66.9 Active Assessment ANA LAURA (obstructive sleep apnea) G47.33 Active Problem Osteoarthritis M19.90 Active Assessment Prediabetes R73.09 Active Problem Postmenopausal Z78.0 Active Problem Vitamin D deficiency E55.9 Active Problem Fatty liver K76.0 Active Problem Gastroesophageal reflux disease, esophagitis presence not specified K21.9 Active Problem Allergic sinusitis J30.9 Active Assessment Vitamin D deficiency E55.9 Active Assessment Chronic edema R60.9 Active Problem History of cholecystectomy Z90.49 Active Assessment Fatty liver K76.0 Active Problem Statin intolerance Z78.9 Active Problem HLD (hyperlipidemia) E78.5 Active Problem Hemorrhoids K64.9 Active Problem Essential hypertension I10 Active Assessment HLD (hyperlipidemia) E78.5 Active Assessment Essential hypertension I10 Active Assessment ANAID (generalized anxiety disorder) F41.1 Active Assessment Osteoarthritis M19.90 Active Problem ANA LAURA (obstructive sleep apnea) G47.33 Active Problem Prediabetes R73.09 Active Assessment Screening for breast cancer Z12.39 Active Assessment Encntr for general adult medical exam w/o abnormal findings Z00.00 Active Medications Medication Code System Code Instructions Start Date End Date Status Dosage Lidocaine [facility] 19937562229 5 % Externally Three times a day Jun 20, 2017 Active 1 application to affected area as needed Motion Sickness Relief ND 44195967619 50 MG Orally every 6 hrs Active 1 tablet as needed Diazepam NDC 98535904156 5 MG Orally 1 tablet PRN prior to flight as needed Active 1 tablet as needed Rectiv [facility] 44094481736 0.4 % Rectal apply 1 inch intra annally every 12 hrs Jun 20, 2017 August 19, 2017 Active as directed Loratadine [facility] 01989376494 10 MG Orally Once a day Active 1 tablet Ranitidine HCl NDC 0 Active not defined Sertraline HCl [facility] 26782019557 50 MG Orally Once a day Active 1 tablet Amlodipine Besylate ND 0 10MG Active TAKE ONE TABLET BY MOUTH ONCE DAILY Losartan Potassium-HCTZ [facility] [address]-05 100-25MG Active TAKE ONE TABLET BY MOUTH ONCE DAILY MetFORMIN HCl ER [facility] 98608309845 500 mg Orally Once a day Active 1 tablet with evening meal Lyrica [facility] 75416694135 75 MG Orally Twice a day Jul 04, 2017 Active 1 capsule Pantoprazole Sodium [facility] 98639540280 40 MG Orally Once a day Active 1 tablet Flonase [facility] 23357056283 50 MCG/ACT Nasally Once a day Jul 05, 2016 Active 1 spray in each nostril Sertraline HCl [facility] [address]-91 50MG by mouth daily as needed Active TAKE ONE TABLET BY MOUTH ONCE DAILY Meclizine HCl [facility] 12733631087 25 MG Orally Once a day Active 1 tablet as needed Losartan Potassium-HCTZ [facility] 31928815911 100-25 MG Orally Once a day Active 1 tablet Amlodipine Besylate [facility] 65273067979 10 mg Orally Once a day Active 1 tablet Ezetimibe [facility] 59425740972 10MG Orally Once a day Active 1 tablet Vital Signs Date/Time: July 29, 2017 BMI 37.44 Index Weight 232 lbs Height 66 in Cardiac Monitoring Heart Rate 73 /min Blood Pressure Diastolic 70 mm Hg Blood Pressure Systolic 120 mm Hg Results Name Result Date Reference Range Unit Abnormality Flag Chest 2 views- Xray EKG Summary Purpose eClinicalWorks Submission
--- OUTSIDE RECORDS SUMMARY | 2018-11-28 05:59 | XMS REPORT ---
Author Author Octavia Larson [facility] eClinicalWorks Address Unknown Phone Unavailable Care Team Providers Care Steam And Power Supervisor Name Role Phone Octavia Larson CP Unavailable Allergies No Known Allergies Problems Problem Type Condition Code Onset Dates Condition Status Problem Essential hypertension I10 Active Problem Allergic sinusitis J30.9 Active Problem Hemorrhoids K64.9 Active Problem 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, initial encounter T85.199A Active Assessment Lymphadenopathy R59.1 Active Problem Bladder spasms N32.89 Active Problem Morbid obesity E66.01 Active Problem History of cholecystectomy Z90.49 Active Problem Gastroesophageal reflux disease, esophagitis presence not specified K21.9 Active Problem Irritable bowel syndrome with diarrhea K58.0 Active Problem 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
--- OUTSIDE RECORDS SUMMARY | 2018-11-28 05:59 | XMS REPORT ---
Author Author Octavia Larson [facility] eClinicalWorks Address Unknown Phone Unavailable Care Team Providers Care Partner Integration Planner Name Role Phone Octavia Larson Unavailable Allergies, Adverse Reactions, Alerts Substance Reaction [...] Active Problem Essential hypertension I10 Active Assessment Essential hypertension I10 Active Assessment Left arm pain M79.602 Active Problem Obesity E66.9 Active Problem Osteoarthritis M19.90 Active Problem ANA LAURA (obstructive sleep apnea) G47.33 Active Problem Postmenopausal Z78.0 Active Problem Prediabetes R73.09 Active Problem Fatty liver K76.0 Active Medications Medication Code System Code Instructions Start Date End Date Status Dosage Ranitidine HCl NDC 0 Active not defined Pantoprazole Sodium ND 15169217998 40 MG Orally Once a day Active 1 tablet Flonase [facility] 22373336256 50 MCG/ACT Nasally Once a day Jul 05, 2016 Active 1 spray in each nostril Losartan Potassium-HCTZ ND 35223254356 100-25 MG Orally Once a day Active 1 tablet Lidocaine ND 35426080161 5 % Externally Three times a day Jun 20, 2017 Active 1 application to affected area as needed Lyrica ND 57539943202 75 MG Orally Twice a day Jul 04, 2017 Active 1 capsule Amlodipine Besylate [facility] [address]-25 10MG Active TAKE ONE TABLET BY MOUTH ONCE DAILY Motion Sickness Relief [facility] 46070111006 50 MG Orally every 6 hrs Active 1 tablet as needed Diazepam ND 85376751647 5 MG Orally 1 tablet PRN prior to flight as needed Active 1 tablet as needed Rectiv [facility] 73680723783 0.4 % Rectal apply 1 inch intra annally every 12 hrs Jun 20, 2017 August 19, 2017 Active as directed Meclizine HCl [facility] 42262473680 25 MG Orally Once a day Active 1 tablet as needed Valacyclovir HCl [facility] 06805460845 1 GM Orally three times a day (tid) Jul 04, 2017 Jul 11, 2017 Active 1 tablet Sertraline HCl [facility] [address]-12 50MG by mouth daily as needed Active TAKE ONE TABLET BY MOUTH ONCE DAILY Losartan Potassium-HCTZ [facility] [address]-47 100-25MG Active TAKE ONE TABLET BY MOUTH ONCE DAILY Sertraline HCl [facility] 20393138120 50 MG Orally Once a day Active 1 tablet Loratadine [facility] 91766796138 10 MG Orally Once a day Active 1 tablet Ezetimibe [facility] 55998751946 10MG Active TAKE ONE TABLET BY MOUTH ONCE DAILY Valacyclovir HCl [facility] 79613181668 1 GM Orally every 24 hrs Jul 04, 2017 Jul 04, 2017 Inactive 1 tablet Amlodipine Besylate [facility] 23266580302 10 mg Orally Once a day Active 1 tablet Anucort-HC [facility] 35048005686 25 MG Rectal twice a day Jun 20, 2017 July 18, 2017 Active 1 suppository MetFORMIN HCl ER [facility] 00906375569 500 mg Orally Once a day Active 1 tablet with evening meal Vital Signs Date/Time: Jul 04, 2017 BMI 37.76 Index Weight 234 lbs Height 66 in Cardiac Monitoring Heart Rate 70 /min Blood Pressure Diastolic 78 mm Hg Blood Pressure Systolic 120 mm Hg Results No Known Results Summary Purpose eClinicalWorks Submission
--- OUTSIDE RECORDS SUMMARY | 2018-11-28 05:59 | XMS REPORT ---
Author Author Rylee Rodriguez [facility] eClinicalWorks Address Unknown Phone Unavailable Care Team Providers Care Ticket Speculator Name Role Phone Rylee Rodriguez CP Unavailable Allergies, Adverse Reactions, Alerts Substance Reaction Event Type N.K.D.A. 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 Problem History of cholecystectomy Z90.49 Active Assessment Irritable bowel syndrome with diarrhea K58.0 Active Assessment Breast cancer screening Z12.31 Active Problem Irritable bowel syndrome with diarrhea K58.0 Active Problem Hemorrhoids K64.9 Active Problem Essential hypertension I10 Active Problem Gastroesophageal reflux disease, esophagitis presence not specified K21.9 Active Problem Allergic sinusitis J30.9 Active Assessment HLD (hyperlipidemia) E78.5 Active Assessment Essential hypertension I10 Active Assessment Prediabetes R73.09 Active Assessment Statin intolerance Z78.9 Active Problem Obesity E66.9 Active Problem Osteoarthritis M19.90 Active Problem ANA LAURA (obstructive sleep apnea) G47.33 Active Problem Postmenopausal Z78.0 Active Problem Prediabetes R73.09 Active Problem Fatty liver K76.0 Active Medications Medication Code System Code Instructions Start Date End Date Status Dosage Pantoprazole Sodium ND 53773754951 40 MG Orally Once a day Active 1 tablet Amlodipine Besylate NDC 0 10MG Active TAKE ONE TABLET BY MOUTH ONCE DAILY Diazepam NDC 93274346646 5 MG Orally 1 tablet PRN prior to flight as needed Active 1 tablet as needed Ranitidine HCl NDC 0 Active not defined Losartan Potassium-HCTZ NDC 24634647445 100-25 MG Orally Once a day Active 1 tablet Lidocaine ND 36757015869 5 % Externally Three times a day Jun 20, 2017 Active 1 application to affected area as needed Loratadine [facility] 69638170445 10 MG Orally Once a day Active 1 tablet Losartan Potassium-HCTZ [facility] [address]-09 100-25MG Active TAKE ONE TABLET BY MOUTH ONCE DAILY Ezetimibe [facility] 92570617433 10MG Orally Once a day Active 1 tablet MetFORMIN HCl ER [facility] 18786212686 500 mg Orally Once a day Active 1 tablet with evening meal Valtrex [facility] 61916740027 1 GM Orally three times a day September 15, 2017 September 22, 2017 Active [address] [facility] 57656395345 10 mg Orally Four times a day PRN September 15, 2017 October 15, 2017 Active 1 capsules Motion Sickness Relief [facility] 43642114294 50 MG Orally every 6 hrs Active 1 tablet as needed Flonase [facility] 65687050812 50 MCG/ACT Nasally Once a day Jul 05, 2016 Active 1 spray in each nostril Meclizine HCl [facility] 96811772462 25 MG Orally Once a day Active 1 tablet as needed Amlodipine Besylate [facility] 75241912294 10 mg Orally Once a day Active 1 tablet Sertraline HCl [facility] [address]-99 50MG by mouth daily as needed Active TAKE ONE TABLET BY MOUTH ONCE DAILY Sertraline HCl [facility] 14430801467 50 MG Orally Once a day Active [address] [facility] 25380706066 75 MG Orally Twice a day Jul 04, 2017 Active 1 capsule Vital Signs Date/Time: September 15, 2017 BMI 37.60 Index Weight 233 lbs Height 66 in Cardiac Monitoring Heart Rate 86 /min Blood Pressure Diastolic 82 mm Hg Blood Pressure Systolic 124 mm Hg Results No Known Results Summary Purpose eClinicalWorks Submission
--- OUTSIDE RECORDS SUMMARY | 2018-11-28 06:00 | XMS REPORT ---
Author Author Octavia Larson [facility] eClinicalWorks Address Unknown Phone Unavailable Care Team Providers Care All Terrain Vehicle Technician Name Role Phone Octavia Larson CP Unavailable Allergies, Adverse Reactions, Alerts Substance Reaction Event Type Levaquin knee pain Non Drug Allergy Problems Problem Type Condition Code Onset Dates Condition Status Problem Essential hypertension I10 Active Problem Allergic sinusitis J30.9 Active Problem Hemorrhoids K64.9 Active Problem 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, initial encounter T85.199A Active Assessment Vertigo R42 Active Problem Bladder spasms N32.89 Active Assessment Essential hypertension I10 Active Assessment Soft tissue swelling of chest wall R22.2 Active Problem Morbid obesity E66.01 Active Problem [...] E78.5 Active Problem Osteoarthritis M19.90 Active Assessment Osteoarthritis M19.90 Active Problem ANA LAURA (obstructive sleep apnea) G47.33 Active Problem Statin intolerance Z78.9 Active Medications Medication Code System Code Instructions Start Date End Date Status Dosage Meclizine HCl ND 40108016688 25 MG Orally Once a day Active 1 tablet as needed Motion Sickness Relief ND 85492930967 50 MG Orally every 6 hrs Active 1 tablet as needed Ezetimibe ND 49184419078 10MG Orally Once a day Active 1 tablet ProAir HFA ND 71428263159 108 (90 Base) MCG/ACT Inhalation every 6 hrs prn Dec 27, 2017 Active 2 puffs Lidocaine ND 38704342650 5 % Externally Three times a day Jun 20, 2017 Active 1 application to affected area as needed Amlodipine Besylate ND 69347616773 10 mg Orally Once a day Active 1 tablet Loratadine ND 95409437407 10 MG Orally Once a day Active 1 tablet Losartan Potassium-HCTZ [facility] 11293875866 100-25 MG Orally Once a day Active 1 tablet Medrol (Gabriel) NDC 0 4 mg Orally Apr 05, 2018 Apr 11, 2018 Active as directed Flonase ND 91879811412 50 MCG/ACT Nasally Once a day Jan 02, 2018 Active 2 spray in each nostril Bromfed DM [facility] 24546090428 30-2-10 MG/5ML Orally every 4 hrs prn Dec 27, 2017 Apr 26, 2018 Active 10 ml Ranitidine HCl [facility] 76293623544 150 MG Orally daily Active 2 tablet Lyrica [facility] 18873424287 75 MG Orally Twice a day Jul 04, 2017 Active 1 capsule Norel AD [facility] 42120949152 4-10-325 MG Orally every 4-6 hours Jan 02, 2018 Active 1 tablet as needed Pantoprazole Sodium [facility] 40718393603 40 mg Orally Once a day Active 1 tablet Flonase [facility] 05567383923 50 MCG/ACT Nasally Once a day Jul 05, 2016 Active 1 spray in each nostril Sertraline HCl ND 36017292168 50 MG Orally Once a day Active 1 tablet MetFORMIN HCl ER ND 45308623864 500 mg Orally Once a day Active 1 tablet with evening meal Vital Signs Date/Time: Apr 05, 2018 BMI 38.73 Index Weight 240 lbs Height 66 in Cardiac Monitoring Heart Rate 78 /min Blood Pressure Diastolic 62 mm Hg Blood Pressure Systolic 122 mm Hg Results No Known Results Summary Purpose eClinicalWorks Submission
--- OUTSIDE RECORDS SUMMARY | 2018-11-28 06:00 | XMS REPORT ---
Author Author Mary Ellen Weems [facility] eClinicalWorks Address Unknown Phone Unavailable Care Team Providers Care Sales Estimator Name Role Phone Mary Ellen Weems CP Unavailable Allergies, Adverse Reactions, Alerts Substance Reaction Event Type Levaquin knee pain Non Drug Allergy Problems Problem Type Condition Code Onset Dates Condition Status Problem Hemorrhoids K64.9 Active Problem Gastroesophageal reflux disease, esophagitis presence not specified K21.9 Active Problem Allergic sinusitis J30.9 Active Problem Morbid obesity E66.01 Active Problem 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, initial encounter T85.199A Active Assessment Primary osteoarthritis of right knee M17.11 Active Problem Primary osteoarthritis of right knee M17.11 Active Problem 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 Problem History of cholecystectomy Z90.49 Active Problem Bladder spasms N32.89 Active Problem Irritable bowel syndrome with diarrhea K58.0 Active Problem Vitamin D deficiency E55.9 Active Problem HLD (hyperlipidemia) E78.5 Active Problem Postmenopausal Z78.0 Active Problem Fatty liver K76.0 Active Problem Obesity E66.9 Active Problem Osteoarthritis M19.90 Active Problem ANA LAURA (obstructive sleep apnea) G47.33 Active Problem Statin intolerance Z78.9 Active Problem Prediabetes R73.09 Active Problem Essential hypertension I10 Active Medications Medication Code System Code Instructions Start Date End Date Status Dosage Lyrica [facility] 37324942897 75 MG Orally Twice a day Jul 04, 2017 Active 1 capsule Sertraline HCl ND 44692397000 50 MG Orally Once a day Active 1 tablet ProAir HFA [facility] 86804671765 108 (90 Base) MCG/ACT Inhalation every 6 hrs prn Dec 27, 2017 Active 2 puffs Voltaren [facility] 60703494767 1 % Transdermal apply to right knee every 6 hours if needed Apr 19, 2018 November 15, 2018 Active as directed Bromfed DM ND 39155158259 30-2-10 MG/5ML Orally every 4 hrs prn Dec 27, 2017 Apr 26, 2018 Active 10 ml Motion Sickness Relief [facility] 51963208468 50 MG Orally every 6 hrs Active 1 tablet as needed Ezetimibe [facility] 63016387323 10MG Orally Once a day Active 1 tablet Loratadine [facility] 79875632440 10 MG Orally Once a day Active 1 tablet Pantoprazole Sodium [facility] 61571270554 40 mg Orally Once a day Active 1 tablet Voltaren [facility] 80857200387 1 % Transdermal apply 4gm to right knee q 6hrs prn Apr 21, 2018 October 18, 2018 Active as directed Flonase [facility] 21163685286 50 MCG/ACT Nasally Once a day Jan 02, 2018 Active 2 spray in each nostril Norel AD [facility] 35183272678 4-10-325 MG Orally every 4-6 hours Jan 02, 2018 Active 1 tablet as needed Ranitidine HCl [facility] 12312347596 150 MG Orally daily Active 2 tablet Lidocaine [facility] 42999834880 5 % Externally Three times a day Jun 20, 2017 Active 1 application to affected area as needed Amlodipine Besylate [facility] 41545198607 10 mg Orally Once a day Active 1 tablet Losartan Potassium-HCTZ [facility] 23987011043 100-25 MG Orally Once a day Active 1 tablet Flonase [facility] 72979769411 50 MCG/ACT Nasally Once a day Jul 05, 2016 Active 1 spray in each nostril Meclizine HCl [facility] 13375883142 25 MG Orally Once a day Active 1 tablet as needed MetFORMIN HCl ER [facility] 25569118703 500 mg Orally Once a day Active 1 tablet with evening meal Vital Signs Date/Time: Apr 19, 2018 BMI 38.41 Index Weight 238 lbs Height 66 in Cardiac Monitoring Heart Rate 71 /min Blood Pressure Diastolic 68 mm Hg Blood Pressure Systolic 124 mm Hg Results No Known Results Summary Purpose eClinicalWorks Submission
--- OUTSIDE RECORDS SUMMARY | 2018-11-28 06:01 | XMS REPORT ---
Author Author Rylee Rodriguez Organization eClinicalWorks Address Unknown Phone Unavailable Care Team Providers Care Green Lumber Grader Name Role Phone Rylee Rodriguez CP Unavailable [...] Active Problem Morbid obesity E66.01 Active Assessment Neck pain M54.2 Active Problem Gastroesophageal reflux disease without esophagitis [...] Start Date End Date Status Dosage Loratadine [facility] 21321538925 10 MG Orally Once a day Active 1 tablet Flonase [facility] 02266790400 50 MCG/ACT Nasally Once a day Jul 05, 2016 Active 1 spray in each nostril ProAir HFA [facility] 91994970617 108 (90 Base) MCG/ACT Inhalation every 6 hrs prn Dec 27, 2017 Active 2 puffs Pantoprazole Sodium [facility] 38987872336 40 mg by mouth Once a day Active 1 tablet Voltaren [facility] 61710671873 1 % Transdermal apply to right knee every 6 hours if needed Apr 19, 2018 November 15, 2018 Active as directed Lidocaine [facility] 38411655375 5 % Externally Three times a day Jun 20, 2017 Active 1 application to affected area as needed Ezetimibe [facility] 73173072101 10MG by mouth Once a day Active 1 tablet Flonase [facility] 95163201517 50 MCG/ACT Nasally Once a day Jan 02, 2018 Active 2 spray in each nostril Flexeril NDC 0 10 mg Orally Three times a day September 20, 2018 Active 1 tablet as needed Mobic ND 32565514587 7.5 MG Orally Once a day September 20, 2018 Mar 19, 2019 Active 1 tablet Amlodipine Besylate ND 76514567696 10 mg by mouth Once a day Active 1 tablet Norel AD [facility] 62702185836 4-10-325 MG Orally every 4-6 hours Jan 02, 2018 Active 1 tablet as needed Motion Sickness Relief [facility] 15465489318 50 MG Orally every 6 hrs Active 1 tablet as needed Ranitidine HCl [facility] 37805484028 150 MG Orally daily Active 2 tablet Losartan Potassium-HCTZ [facility] 41501768942 100-25 MG by mouth Once a day Active 1 tablet Lyrica [facility] 55683405133 75 MG Orally Twice a day Jul 04, 2017 Active 1 capsule Meclizine HCl [facility] 06623562763 25 MG Orally Once a day Active 1 tablet as needed Sertraline HCl [facility] 41956854785 50 MG Orally Once a day Active 1 tablet MetFORMIN HCl ER ND 29480917278 500 mg by mouth Once a day Active 1 tablet with evening meal Vital Signs Date/Time: September 20, 2018 BMI 38.57 Index Weight 239 lbs Height 66 in Cardiac Monitoring Heart Rate 68 /min Blood Pressure Diastolic 74 mm Hg Blood Pressure Systolic 128 mm Hg Results No Known Results Summary Purpose eClinicalWorks Submission
--- OUTSIDE RECORDS SUMMARY | 2018-11-28 06:01 | XMS REPORT ---
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, initial encounter T85.199A Active Assessment Prediabetes R73.09 Active Assessment Essential hypertension I10 Active Problem Primary osteoarthritis of right knee M17.11 Active Problem 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 Problem History of cholecystectomy Z90.49 Active Problem Bladder spasms N32.89 Active Problem Irritable bowel syndrome with diarrhea K58.0 Active Problem Vitamin D deficiency E55.9 Active Problem HLD (hyperlipidemia) E78.5 Active Problem Postmenopausal Z78.0 Active Problem Fatty liver K76.0 Active Problem Obesity E66.9 Active Problem Osteoarthritis M19.90 Active Assessment HLD (hyperlipidemia) E78.5 Active Problem ANA LAURA (obstructive sleep apnea) G47.33 Active Problem Statin intolerance Z78.9 Active Assessment Gastroesophageal reflux disease, esophagitis presence not specified K21.9 Active Problem Prediabetes R73.09 Active Problem Essential hypertension I10 Active Medications Medication Code System Code Instructions Start Date End Date Status Dosage Losartan Potassium-HCTZ NDC 89953376412 100-25 MG by mouth Once a day Active 1 tablet Pantoprazole Sodium NDC 57023702040 40 mg by mouth Once a day Active 1 tablet Amlodipine Besylate NDC 46894847364 10 mg by mouth Once a day Active 1 tablet MetFORMIN HCl ER NDC 72919127466 500 mg by mouth Once a day Active 1 tablet with evening meal Ezetimibe ND 82720404008 10MG by mouth Once a day Active 1 tablet Results No Known Results Summary Purpose eClinicalWorks Submission
--- OUTSIDE RECORDS SUMMARY | 2018-11-28 06:01 | XMS REPORT ---
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 Problem History of cholecystectomy Z90.49 Active Problem Irritable bowel syndrome with diarrhea K58.0 Active Problem Hemorrhoids K64.9 Active Problem Essential hypertension I10 Active Problem Gastroesophageal reflux disease, esophagitis presence not specified K21.9 Active Problem Allergic sinusitis J30.9 Active Assessment Gastroesophageal reflux disease, esophagitis presence not specified K21.9 Active Problem Obesity E66.9 Active Problem Osteoarthritis M19.90 Active Problem ANA LAURA (obstructive sleep apnea) G47.33 Active Problem Postmenopausal Z78.0 Active Problem Prediabetes R73.09 Active Problem Fatty liver K76.0 Active Medications Medication Code System Code Instructions Start Date End Date Status Dosage Pantoprazole Sodium [facility] 77120561006 40 mg Orally Once a day Active 1 tablet Results No Known Results Summary Purpose eClinicalWorks Submission
--- OUTSIDE RECORDS SUMMARY | 2018-11-28 06:02 | XMS REPORT ---
Author Author Octavia Larson [facility] eClinicalWorks Address Unknown Phone Unavailable Care Team Providers Care Accounts Receivable Coordinator Name Role Phone Octavia Larson Unavailable Allergies, Adverse Reactions, Alerts Substance Reaction Event Type N.K.D.A. 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 Assessment Bladder spasms N32.89 Active Assessment Hemorrhoids K64.9 Active Problem Bladder spasms N32.89 Active Problem Allergic sinusitis J30.9 Active Problem Hemorrhoids K64.9 Active Problem History of cholecystectomy Z90.49 Active Problem Gastroesophageal reflux disease, esophagitis presence not specified K21.9 Active Assessment Sore throat J02.9 Active Problem ANA LAURA (obstructive sleep apnea) G47.33 Active Assessment Allergic sinusitis J30.9 Active Assessment Essential hypertension I10 Active Problem Osteoarthritis M19.90 Active Problem Postmenopausal Z78.0 Active Problem Prediabetes R73.09 Active Problem Fatty liver K76.0 Active Problem Obesity E66.9 Active Problem Vitamin D deficiency E55.9 Active Medications Medication Code System Code Instructions Start Date End Date Status Dosage Lidocaine ND 02809841959 5 % Externally Three times a day Jun 20, 2017 Active 1 application to affected area as needed Ezetimibe ND 42881907560 10MG Orally Once a day Active 1 tablet Amlodipine Besylate NDC 0 10MG Active TAKE ONE TABLET BY MOUTH ONCE DAILY Motion Sickness Relief ND 79877055981 50 MG Orally every 6 hrs Active 1 tablet as needed MetFORMIN HCl ER ND 82031118063 500 mg Orally Once a day Active 1 tablet with evening meal Meclizine HCl ND 53093493972 25 MG Orally Once a day Active 1 tablet as needed Ranitidine HCl NDC 0 Active not defined Losartan Potassium-HCTZ [facility] [address]-39 100-25MG Active TAKE ONE TABLET BY MOUTH ONCE DAILY Diazepam [facility] 33992796288 5 MG Orally 1 tablet PRN prior to flight as needed Active 1 tablet as needed Loratadine [facility] 96505013746 10 MG Orally Once a day Active 1 tablet Sertraline HCl [facility] [address]-66 50MG by mouth daily as needed Active TAKE ONE TABLET BY MOUTH ONCE DAILY Amlodipine Besylate [facility] 83899505042 10 mg Orally Once a day Active 1 tablet Losartan Potassium-HCTZ [facility] 76399289937 100-25 MG Orally Once a day Active 1 tablet Sertraline HCl [facility] 33689314029 50 MG Orally Once a day Active 1 tablet Hydrocortisone [facility] 15971092187 1 % Rectal Twice a day PRN Dec 21, 2017 Jan 20, 2018 Active 1 application to affected area Lyrica [facility] 92290955194 75 MG Orally Twice a day Jul 04, 2017 Active 1 capsule Pantoprazole Sodium [facility] 38294964483 40 mg Orally Once a day Active 1 tablet Flonase [facility] 02999692279 50 MCG/ACT Nasally Once a day Jul 05, 2016 Active 1 spray in each nostril Vital Signs Date/Time: Dec 21, 2017 BMI 37.60 Index Weight 233 lbs Height 66 in Temperature 98.2 F Cardiac Monitoring Heart Rate 86 /min Results Name Result Date Reference Range Unit Abnormality Flag RAPID STREP ----Negative negative [id number] [place] 1MGx4 Summary Purpose eClinicalWorks Submission
--- OUTSIDE RECORDS SUMMARY | 2018-11-28 06:02 | XMS REPORT ---
Author Author Mary Ellen Weems Organization [employer] Address Unknown Phone Unavailable Care Team Providers Care Web Developer Programmer Name Role Phone Mary Ellen Weems CP Unavailable Allergies No Known Allergies Problems Problem Type Condition Code Onset Dates Condition Status Problem Allergic sinusitis J30.9 Active Problem History of cholecystectomy Z90.49 Active Problem Gastroesophageal reflux disease, esophagitis presence not specified K21.9 Active Problem Primary osteoarthritis of right knee M17.11 Active Problem Postmenopausal Z78.0 Active Problem Morbid obesity E66.01 Active Problem Gastroesophageal reflux disease without esophagitis [...] E66.9 Active Problem Hemorrhoids K64.9 Active Medications No Known Medications Results No Known Results Summary Purpose eClinicalWorks Submission
--- OUTSIDE RECORDS SUMMARY | 2018-11-28 06:02 | XMS REPORT ---
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, initial encounter T85.199A Active Problem Gastroesophageal reflux disease, esophagitis presence not specified K21.9 Active Problem Allergic sinusitis J30.9 Active Problem 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
--- OUTSIDE RECORDS SUMMARY | 2018-11-28 06:03 | XMS REPORT ---
Author Author Mary Ellen Weems [facility] eClinicalWorks Address Unknown Phone Unavailable Care Team Providers Care Print Line Operator Name Role Phone Nico Encarnacion Mary Ellen CP Unavailable Allergies, Adverse Reactions, Alerts Substance [...] G47.33 Active Problem Prediabetes R73.09 Active Assessment Anal fissure K60.2 Active Assessment Bronchitis J40 Active Problem Postmenopausal Z78.0 Active Problem Fatty liver K76.0 Active Problem Obesity E66.9 Active Problem Vitamin D deficiency E55.9 Active Problem Osteoarthritis M19.90 Active Problem HLD (hyperlipidemia) E78.5 Active Medications Medication Code System Code Instructions Start Date End Date Status Dosage ProAir HFA [facility] 43228885642 108 (90 Base) MCG/ACT Inhalation every 6 hrs prn Dec 27, 2017 Active 2 puffs MetFORMIN HCl ER ND 01618150239 500 mg Orally Once a day Active 1 tablet with evening meal Losartan Potassium-HCTZ ND 99015385783 100-25 MG Orally Once a day Active 1 tablet Lidocaine ND 31455142959 5 % Externally Three times a day Jun 20, 2017 Active 1 application to affected area as needed Lyrica ND 21415149176 75 MG Orally Twice a day Jul 04, 2017 Active 1 capsule Amlodipine Besylate NDC 0 10MG Active TAKE ONE TABLET BY MOUTH ONCE DAILY Loratadine ND 91008687416 10 MG Orally Once a day Active 1 tablet Amlodipine Besylate ND 44037578440 10 mg Orally Once a day Active 1 tablet Diazepam ND 31849160780 5 MG Orally 1 tablet PRN prior to flight as needed Active 1 tablet as needed Ezetimibe [facility] 67164663704 10MG Orally Once a day Active 1 tablet Meclizine HCl ND 47526379642 25 MG Orally Once a day Active 1 tablet as needed Losartan Potassium-HCTZ [facility] [address]-41 100-25MG Active TAKE ONE TABLET BY MOUTH ONCE DAILY Sertraline HCl [facility] 96871471159 50 MG Orally Once a day Active 1 tablet Hydrocortisone [facility] 86737583752 1 % Rectal Twice a day PRN Dec 21, 2017 Jan 20, 2018 Active 1 application to affected area Levaquin [facility] 38040559227 500 mg Orally Once a day Dec 27, 2017 Jan 03, 2018 Active 1 tablet Bromfed DM [facility] 67100802255 30-2-10 MG/5ML Orally every 4 hrs prn Dec 27, 2017 Apr 26, 2018 Active 10 ml Flonase [facility] 11953153727 50 MCG/ACT Nasally Once a day Jul 05, 2016 Active 1 spray in each nostril Sertraline HCl [facility] [address]-61 50MG by mouth daily as needed Active TAKE ONE TABLET BY MOUTH ONCE DAILY Ranitidine HCl [facility] 26481439443 150 MG Orally daily Active 2 tablet Pantoprazole Sodium [facility] 25402625103 40 mg Orally Once a day Active 1 tablet Motion Sickness Relief [facility] 13394205472 50 MG Orally every 6 hrs Active 1 tablet as needed Vital Signs Date/Time: Dec 27, 2017 BMI 36.96 Index Weight 229 lbs Height 66 in Temperature 97.5 F Cardiac Monitoring Heart Rate 78 /min Blood Pressure Diastolic 80 mm Hg Blood Pressure Systolic 130 mm Hg Results No Known Results Summary Purpose eClinicalWorks Submission
--- OUTSIDE RECORDS SUMMARY | 2018-11-28 06:03 | XMS REPORT ---
Author Author Earline Ren [facility] eClinicalWorks Address Unknown Phone Unavailable Care Team Providers Care Receiving Supervisor Name Role Phone Earline Ren CP Unavailable Allergies No Known Allergies Problems Problem Type Condition Code Onset Dates Condition Status Problem Allergic sinusitis J30.9 Active Problem History of cholecystectomy Z90.49 Active Problem Gastroesophageal reflux disease, esophagitis presence not specified K21.9 Active Problem Primary osteoarthritis of right knee M17.11 Active Problem Postmenopausal Z78.0 Active Problem Morbid obesity E66.01 Active Assessment Gastroesophageal reflux disease without esophagitis K21.9 Active Problem Gastroesophageal reflux disease without esophagitis [...] End Date Status Dosage Motion Sickness Relief [facility] 12148015621 50 MG Orally every 6 hrs Active 1 tablet as needed Flonase ND 46163159627 50 MCG/ACT Nasally Once a day Jul 05, 2016 Active 1 spray in each nostril Losartan Potassium-HCTZ ND 06323030133 100-25 MG by mouth Once a day Active 1 tablet Flonase ND 49194248840 50 MCG/ACT Nasally Once a day Jan 02, 2018 Active 2 spray in each nostril Ranitidine HCl ND 03398102121 150 MG Orally daily Active 2 tablet Amlodipine Besylate ND 64894502072 10 mg by mouth Once a day Active 1 tablet Meclizine HCl [facility] 20585060770 25 MG Orally Once a day Active 1 tablet as needed Ezetimibe [facility] 84234087853 10MG by mouth Once a day Active 1 tablet Pantoprazole Sodium [facility] 21297400995 40 mg by mouth Once a day Active 1 tablet MetFORMIN HCl ER [facility] 12468300901 500 mg by mouth Once a day Active 1 tablet with evening meal Voltaren [facility] 65067228119 1 % Transdermal apply to right knee every 6 hours if needed Apr 19, 2018 November 15, 2018 Active as directed Lyrica [facility] 58515405314 75 MG Orally Twice a day Jul 04, 2017 Active 1 capsule Lidocaine [facility] 75089107024 5 % Externally Three times a day Jun 20, 2017 Active 1 application to affected area as needed Norel AD [facility] 87424382164 4-10-325 MG Orally every 4-6 hours Jan 02, 2018 Active 1 tablet as needed Dicyclomine HCl [facility] 67571229992 10 MG Orally Four times a day Jun 28, 2018 July 28, 2018 Active 2 capsules Sertraline HCl [facility] 29890747293 50 MG Orally Once a day Active 1 tablet Loratadine [facility] 36225954036 10 MG Orally Once a day Active 1 tablet ProAir HFA [facility] 29766106316 108 (90 Base) MCG/ACT Inhalation every 6 hrs prn Dec 27, 2017 Active 2 puffs Results No Known Results Summary Purpose eClinicalWorks Submission
--- OUTSIDE RECORDS SUMMARY | 2018-11-28 06:03 | XMS REPORT ---
Author Author Brian Larkin [employer]ClinicalWorks Address Unknown Phone Unavailable Care Team Providers Care Entry Processor Name Role Phone Brian Larkin CP Unavailable Allergies, Adverse Reactions, Alerts Substance [...] G47.33 Active Problem Prediabetes R73.09 Active Assessment Hemorrhoids, unspecified hemorrhoid type K64.9 Active Problem Postmenopausal Z78.0 Active Problem Fatty liver K76.0 Active Problem Obesity E66.9 Active Problem Vitamin D deficiency E55.9 Active Problem Osteoarthritis M19.90 Active Problem HLD (hyperlipidemia) E78.5 Active Medications Medication Code System Code Instructions Start Date End Date Status Dosage MetFORMIN HCl ER ND 32588176482 500 mg Orally Once a day Active 1 tablet with evening meal Amlodipine Besylate ND 59379906510 10 mg Orally Once a day Active 1 tablet Loratadine ND 99553187646 10 MG Orally Once a day Active 1 tablet Lidocaine ND 38998725592 5 % Externally Three times a day Jun 20, 2017 Active 1 application to affected area as needed Levaquin ND 15105645954 500 mg Orally once a day Jan 02, 2018 Jan 12, 2018 Active 1 tablet Hydrocortisone ND 44499459556 1 % Rectal Twice a day PRN Dec 21, 2017 Jan 20, 2018 Active 1 application to affected area Losartan Potassium-HCTZ ND 53392217373 100-25 MG Orally Once a day Active 1 tablet Tramadol HCl ND 61156019691 50 mg by mouth every 6 hrs Jan 10, 2018 Jan 25, 2018 Active 1-2tablet as needed Lyrica [facility] 98761071366 75 MG Orally Twice a day Jul 04, 2017 Active 1 capsule Flonase [facility] 24197089246 50 MCG/ACT Nasally Once a day Jan 02, 2018 Active 2 spray in each nostril Norel AD [facility] 02468464631 4-10-325 MG Orally every 4-6 hours Jan 02, 2018 Active 1 tablet as needed Sertraline HCl [facility] 09402010869 50 MG Orally Once a day Active 1 tablet Meclizine HCl [facility] 83230165385 25 MG Orally Once a day Active 1 tablet as needed Pantoprazole Sodium [facility] 68947279564 40 mg Orally Once a day Active 1 tablet Ezetimibe [facility] 48654437020 10MG Orally Once a day Active 1 tablet Flonase [facility] 86843023875 50 MCG/ACT Nasally Once a day Jul 05, 2016 Active 1 spray in each nostril Bromfed DM [facility] 96181430364 30-2-10 MG/5ML Orally every 4 hrs prn Dec 27, 2017 Apr 26, 2018 Active 10 ml Motion Sickness Relief [facility] 95388514437 50 MG Orally every 6 hrs Active 1 tablet as needed Ranitidine HCl [facility] 35828724067 150 MG Orally daily Active 2 tablet ProAir HFA [facility] 36631691980 108 (90 Base) MCG/ACT Inhalation every 6 hrs prn Dec 27, 2017 Active 2 puffs Vital Signs Date/Time: Jan 10, 2018 BMI 37.12 Index Weight 230 lbs Height 66 in Cardiac Monitoring Heart Rate 75 /min Blood Pressure Diastolic 72 mm Hg Blood Pressure Systolic 140 mm Hg Results No Known Results Summary Purpose eClinicalWorks Submission
--- OUTSIDE RECORDS SUMMARY | 2018-11-28 06:04 | XMS REPORT ---
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, initial encounter T85.199A Active Assessment Flank pain, acute R10.9 Active Problem Bladder spasms N32.89 Active Assessment Right upper quadrant abdominal pain R10.11 Active Assessment Morbid obesity E66.01 Active Problem Morbid obesity E66.01 Active Problem History of cholecystectomy Z90.49 Active Problem Gastroesophageal reflux disease, esophagitis presence not specified K21.9 Active Problem Irritable bowel syndrome with diarrhea K58.0 Active Problem 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 Problem Fatty liver K76.0 Active Problem Vitamin D deficiency E55.9 Active Assessment Acute pain of right knee M25.561 Active Problem Postmenopausal Z78.0 Active Problem Prediabetes R73.09 Active Problem Obesity E66.9 Active Problem HLD (hyperlipidemia) E78.5 Active Problem Osteoarthritis M19.90 Active Problem ANA LAURA (obstructive sleep apnea) G47.33 Active Problem Statin intolerance Z78.9 Active Medications Medication Code System Code Instructions Start Date End Date Status Dosage ProAir HFA [facility] 59883335412 108 (90 Base) MCG/ACT Inhalation every 6 hrs prn Dec 27, 2017 Active 2 puffs Flonase ND 65385783506 50 MCG/ACT Nasally Once a day Jul 05, 2016 Active 1 spray in each nostril Ezetimibe ND 51759729178 10MG Orally Once a day Active 1 tablet Amlodipine Besylate ND 52353992450 10 mg Orally Once a day Active 1 tablet Motion Sickness Relief [facility] 79919292447 50 MG Orally every 6 hrs Active 1 tablet as needed Ultram [facility] 00006747702 50 mg Orally every 6 hrs prn breakthrough pain Feb 24, 2018 Mar 03, 2018 Active 1-2 tablet as needed Loratadine [facility] 69711594016 10 MG Orally Once a day Active 1 tablet Losartan Potassium-HCTZ [facility] 72205308354 100-25 MG Orally Once a day Active 1 tablet Pantoprazole Sodium [facility] 89215785509 40 mg Orally Once a day Active 1 tablet Bromfed DM [facility] 09962199926 30-2-10 MG/5ML Orally every 4 hrs prn Dec 27, 2017 Apr 26, 2018 Active 10 ml Flonase [facility] 15974542730 50 MCG/ACT Nasally Once a day Jan 02, 2018 Active 2 spray in each nostril Ranitidine HCl [facility] 58952814810 150 MG Orally daily Active 2 tablet Lidocaine [facility] 44706365099 5 % Externally Three times a day Jun 20, 2017 Active 1 application to affected area as needed MetFORMIN HCl ER [facility] 22745064738 500 mg Orally Once a day Active 1 tablet with evening meal Lyrica [facility] 35090198386 75 MG Orally Twice a day Jul 04, 2017 Active 1 capsule Meclizine HCl [facility] 42709926381 25 MG Orally Once a day Active 1 tablet as needed Sertraline HCl [facility] 51470738803 50 MG Orally Once a day Active 1 tablet Norel AD [facility] 66365263024 4-10-325 MG Orally every 4-6 hours Jan 02, 2018 Active 1 tablet as needed Vital Signs Date/Time: Feb 24, 2018 BMI 37.93 Index Weight 235 lbs Height 66 in Temperature 98.5 F Cardiac Monitoring Heart Rate 77 /min Blood Pressure Diastolic 86 mm Hg Blood Pressure Systolic 124 mm Hg Results Name Result Date Reference Range Unit Abnormality Flag Lipase, Serum ----Lipase 31 20180224 14-72 U/L Amylase, Serum ----Amylase 90 20180224 31-124 U/L URINE AUTO W/O SCOPE ----Spec Pool 1.015 [id number] ----Turbidity cloudy/dark 20180224 ----Glucose neg 20180224 ----Ketones neg 20180224 ----Blood trace 20180224 ----Bili small+ 20180224 ----Color yellow 20180224 ----pH 7.0 20180224 ----Leuk Est trace 20180224 ----Nitrite neg 20180224 ----Urobilinogen 0.2 20180224 ----Protein trace 20180224 CBC With Differential/Platelet ----MCHC 32.9 66573888 31.5-35.7 g/dL ----MCH 28.6 12014439 26.6-33.0 pg ----Platelets 204 24349048 150-379 x10E3/uL ----RDW 14.7 38808447 12.3-15.4 % ----Immature Granulocytes 0 20180224 Not Estab. % ----Immature Grans (Abs) 0.0 82477052 0.0-0.1 x10E3/uL ----Lymphs 27 20180224 Not Estab. % ----Monocytes 6 20180224 Not Estab. % ----Neutrophils 66 20180224 Not Estab. % ----Neutrophils (Absolute) 4.5 70383476 1.4-7.0 x10E3/uL ----Hematocrit 37.7 71780749 34.0-46.6 % ----Lymphs (Absolute) 1.8 80572308 0.7-3.1 x10E3/uL ----MCV 87 68232989 79-97 fL ----RBC 4.33 10150053 3.77-5.28 x10E6/uL ----Eos 1 78689897 Not Estab. % ----Basos 0 20180224 Not Estab. % ----Hemoglobin 12.4 69716629 11.1-15.9 g/dL ----Baso (Absolute) 0.0 [id number] 0.0-0.2 x10E3/uL ----WBC 6.9 40920095 3.4-10.8 x10E3/uL ----Monocytes(Absolute) 0.4 94728386 0.1-0.9 x10E3/uL ----Eos (Absolute) 0.1 89335896 0.0-0.4 x10E3/uL Written Authorization ----Written Authorization Comment [id number] Verbal Order ----Additional Test(s) Requested Comment: [id number] ----See below: Comment: [id number] Hemoglobin A1c ----Hemoglobin A1c 5.9 41739268 4.8-5.6 % H Comp. Metabolic Panel (14) ----Potassium 3.8 20180224 3.5-5.2 mmol/L ----Sodium 141 34386087 134-144 mmol/L ----BUN/Creatinine Ratio 14 20180224-28 ----eGFR If Africn Am 86 [id number] >59 mL/min/1.73 ----eGFR If NonAfricn Am 74 09240563 >59 mL/min/1.73 ----Creatinine 0.85 73893425 0.57-1.00 mg/dL ----BUN 12 20180224 8-27 mg/dL ----Glucose 123 03913795 65-99 mg/dL H ----AST (SGOT) 15 20180224 0-40 IU/L ----Globulin, Total 2.9 58470829 1.5-4.5 g/dL ----ALT (SGPT) 22 20180224 0-32 IU/L ----A/G Ratio 1.6 20180224 1.2-2.2 ----Bilirubin, Total 0.5 20180224 0.0-1.2 mg/dL ----Alkaline Phosphatase 89 20180224 39-117 IU/L ----Carbon Dioxide, Total 24 20180224 20-29 mmol/L ----Calcium 9.3 80692373 8.7-10.3 mg/dL ----Protein, Total 7.4 27526619 6.0-8.5 g/dL ----Albumin 4.5 86033194 3.6-4.8 g/dL ----Chloride 99 47501833 96-106 mmol/L Urine Culture, Routine ----Result 1 Comment [id number] A ----Urine Culture, Routine Final report [id number] A Summary Purpose eClinicalWorks Submission
--- OUTSIDE RECORDS SUMMARY | 2018-11-28 06:04 | XMS REPORT ---
Author Author Brian Larkin [facility] eClinicalWorks Address Unknown Phone Unavailable Care Team Providers Care Information Assurance Name Role Phone Brian Larkin Unavailable Allergies No Known Allergies Problems Problem [...] G47.33 Active Problem Prediabetes R73.09 Active Assessment Urinary tract infection without hematuria, site unspecified N39.0 Active Problem Postmenopausal Z78.0 Active Problem Fatty liver K76.0 Active Problem Obesity E66.9 Active Problem Vitamin D deficiency E55.9 Active Problem Osteoarthritis M19.90 Active Problem HLD (hyperlipidemia) E78.5 Active Medications Medication Code System Code Instructions Start Date End Date Status Dosage Ultram [facility] 65446822229 50 mg Orally every 6 hrs prn breakthrough pain Feb 24, 2018 Mar 03, 2018 Active 1-2 tablet as needed Lyrica [facility] 24899244975 75 MG Orally Twice a day Jul 04, 2017 Active 1 capsule Ranitidine HCl [facility] 97157992715 150 MG Orally daily Active 2 tablet Flonase [facility] 59504696421 50 MCG/ACT Nasally Once a day Jan 02, 2018 Active 2 spray in each nostril Sertraline HCl [facility] 30582597079 50 MG Orally Once a day Active 1 tablet Ezetimibe [facility] 51179751135 10MG Orally Once a day Active 1 tablet Norel AD [facility] 56051129301 4-10-325 MG Orally every 4-6 hours Jan 02, 2018 Active 1 tablet as needed Lidocaine [facility] 22018655940 5 % Externally Three times a day Jun 20, 2017 Active 1 application to affected area as needed Amlodipine Besylate ND 00051167081 10 mg Orally Once a day Active 1 tablet Bromfed DM [facility] 37047548785 30-2-10 MG/5ML Orally every 4 hrs prn Dec 27, 2017 Apr 26, 2018 Active 10 ml Meclizine HCl ND 39517193476 25 MG Orally Once a day Active 1 tablet as needed ProAir HFA [facility] 95802011365 108 (90 Base) MCG/ACT Inhalation every 6 hrs prn Dec 27, 2017 Active 2 puffs Pantoprazole Sodium ND 42113355586 40 mg Orally Once a day Active 1 tablet Losartan Potassium-HCTZ [facility] 28928720817 100-25 MG Orally Once a day Active 1 tablet Flonase [facility] 14303685525 50 MCG/ACT Nasally Once a day Jul 05, 2016 Active 1 spray in each nostril MetFORMIN HCl ER ND 50682167525 500 mg Orally Once a day Active 1 tablet with evening meal Augmentin [facility] 18562419298 875-125 MG Orally every 12 hrs Feb 26, 2018 Mar 08, 2018 Active 1 tablet Motion Sickness Relief [facility] 71815627970 50 MG Orally every 6 hrs Active 1 tablet as needed Loratadine [facility] 91062234371 10 MG Orally Once a day Active 1 tablet Results No Known Results Summary Purpose eClinicalWorks Submission
--- OUTSIDE RECORDS SUMMARY | 2018-11-28 06:04 | XMS REPORT ---
Author Author Brian Larkin [facility] eClinicalWorks Address Unknown Phone Unavailable Care Team Providers Care Jackhammer Operator Name Role Phone Brian Larkin Unavailable Allergies No Known Allergies Problems Problem Type Condition Code Onset Dates Condition Status Problem Statin intolerance Z78.9 Active Problem Hemorrhoids K64.9 Active Problem Essential hypertension I10 Active Problem Bladder spasms N32.89 Active Assessment Gastroesophageal reflux disease, esophagitis presence not specified K21.9 Active Problem Irritable bowel syndrome with diarrhea K58.0 Active Assessment HLD (hyperlipidemia) E78.5 Active Problem 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, initial encounter T85.199A Active Problem Gastroesophageal reflux disease, esophagitis presence not specified K21.9 Active Problem Allergic sinusitis J30.9 Active Problem 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 Problem History of cholecystectomy Z90.49 Active Problem ANA LAURA (obstructive sleep apnea) G47.33 Active Problem Prediabetes R73.09 Active Assessment Essential hypertension I10 Active Assessment Prediabetes R73.09 Active Problem Postmenopausal Z78.0 Active Problem Fatty liver K76.0 Active Problem Obesity E66.9 Active Problem Vitamin D deficiency E55.9 Active Problem Osteoarthritis M19.90 Active Problem HLD (hyperlipidemia) E78.5 Active Medications Medication Code System Code Instructions Start Date End Date Status Dosage Amlodipine Besylate ND 06224834112 10 mg Orally Once a day Active 1 tablet MetFORMIN HCl ER ND 66692223559 500 mg Orally Once a day Active 1 tablet with evening meal Losartan Potassium-HCTZ ND 77488556508 100-25 MG Orally Once a day Active 1 tablet Pantoprazole Sodium ND 95639971003 40 mg Orally Once a day Active 1 tablet Ezetimibe [facility] 48770168076 10MG Orally Once a day Active 1 tablet Results No Known Results Summary Purpose eClinicalWorks Submission
--- OUTSIDE RECORDS SUMMARY | 2018-11-28 06:04 | XMS REPORT ---
Author Author Rylee Rodriguez eClinicalWorks Address Unknown Phone Unavailable Care Team Providers Care Communication Analyst Name Role Phone Rylee Rodriguez CP Unavailable Allergies, Adverse Reactions, Alerts Substance Reaction Event Type N.K.D.A. Info Not Available Non Drug Allergy Problems Problem Type Condition Code Onset Dates Condition Status Problem Statin intolerance Z78.9 Active Problem Hemorrhoids K64.9 Active Problem Essential hypertension I10 Active Problem Bladder spasms N32.89 Active Assessment Acute sinusitis, unspecified J01.90 Active Problem Irritable bowel syndrome with diarrhea [...] G47.33 Active Problem Prediabetes R73.09 Active Assessment Other specified bacterial agents as the cause of diseases classified elsewhere B96.89 Active Assessment Bronchitis J40 Active Problem Postmenopausal Z78.0 Active Problem Fatty liver K76.0 Active Problem Obesity E66.9 Active Problem Vitamin D deficiency E55.9 Active Problem Osteoarthritis M19.90 Active Problem HLD (hyperlipidemia) E78.5 Active Medications Medication Code System Code Instructions Start Date End Date Status Dosage Losartan Potassium-HCTZ ND 50055644344 100-25 MG Orally Once a day Active 1 tablet Levaquin ND 98317988769 500 mg Orally once a day Jan 02, 2018 Jan 12, 2018 Active 1 tablet Ezetimibe ND 23438835368 10MG Orally Once a day Active 1 tablet Ranitidine HCl ND 40485714463 150 MG Orally daily Active 2 tablet ProAir HFA [facility] 46478113250 108 (90 Base) MCG/ACT Inhalation every 6 hrs prn Dec 27, 2017 Active 2 puffs Sertraline HCl [facility] 10720987983 50 MG Orally Once a day Active 1 tablet Norel AD [facility] 73803897021 4-10-325 MG Orally every 4-6 hours Jan 02, 2018 Active 1 tablet as needed Meclizine HCl ND 39085631759 25 MG Orally Once a day Active 1 tablet as needed Lidocaine ND 50475786703 5 % Externally Three times a day Jun 20, 2017 Active 1 application to affected area as needed Bromfed DM [facility] 29980505066 30-2-10 MG/5ML Orally every 4 hrs prn Dec 27, 2017 Apr 26, 2018 Active 10 ml Levaquin ND 27291200636 500 mg Orally Once a day Dec 27, 2017 Jan 03, 2018 Active 1 tablet Flonase [facility] 82492365194 50 MCG/ACT Nasally Once a day Jul 05, 2016 Active 1 spray in each nostril Hydrocortisone [facility] 74365500815 1 % Rectal Twice a day PRN Dec 21, 2017 Jan 20, 2018 Active 1 application to affected area MetFORMIN HCl ER [facility] 03440499205 500 mg Orally Once a day Active 1 tablet with evening meal Amlodipine Besylate ND 69352249068 10 mg Orally Once a day Active 1 tablet Loratadine [facility] 82441744001 10 MG Orally Once a day Active 1 tablet Flonase [facility] 57996211856 50 MCG/ACT Nasally Once a day Jan 02, 2018 Active 2 spray in each nostril Lyrica [facility] 87571644386 75 MG Orally Twice a day Jul 04, 2017 Active 1 capsule Pantoprazole Sodium [facility] 74643955871 40 mg Orally Once a day Active 1 tablet Motion Sickness Relief [facility] 86226990462 50 MG Orally every 6 hrs Active 1 tablet as needed Vital Signs Date/Time: Jan 02, 2018 BMI 37.28 Index Weight 231 lbs Height 66 in Cardiac Monitoring Heart Rate 68 /min Blood Pressure Diastolic 74 mm Hg Blood Pressure Systolic 128 mm Hg Results No Known Results Summary Purpose eClinicalWorks Submission
--- OUTSIDE RECORDS SUMMARY | 2018-11-28 06:05 | XMS REPORT ---
Author Author Abbey Tao [facility] eClinicalWorks Address Unknown Phone Unavailable Care Team Providers Care Jewel Stripper Name Role Phone Abbey Tao CP Unavailable Allergies, Adverse Reactions, Alerts Substance Reaction Event Type N.K.D.A. Info Not Available Non Drug Allergy Encounters Encounter Location Date [address] [facility] Dec 16, 2014 2 week follow up [facility] Dec 20, 2014 Unknown [facility] Jul 01, 2014 Problems Problem Type Condition ICD-9 Code Onset Dates Condition Status Problem Hyperlipidemia 272.4 Active Problem Postmenopausal V49.81 Active Problem Hypertension, benign 401.1 Active Problem ANA LAURA (obstructive sleep apnea) 327.23 Active Assessment Hypertension 401.9 Active Problem Body Mass Index 39.0-39.9, adult V85.39 Active Assessment Insomnia 780.52 Active Assessment Anxiety 300.00 Active Problem Hypertension 401.9 Active Problem Myalgia 729.1 Active Problem Hemorrhoids 455.6 Active Problem Obesity (BMI 30-39.9) 278.00 Active Problem Prediabetes 790.29 Active Assessment Hyperlipidemia 272.4 Active Assessment Thrombocytopenia 287.5 Active Assessment Prediabetes 790.29 Active Assessment Vitamin d deficiency 268.9 Active Problem Chronic edema 782.3 Active Problem Vitamin d deficiency 268.9 Active Problem Statin intolerance 995.27 Active Problem ANAID (generalized anxiety disorder) 300.02 Active Problem Fatty liver 571.8 Active Problem Osteoarthritis, generalized 715.00 Active Medications Medication Code System Code Instructions Start Date End Date Status Dosage Omeprazole [facility] [address]-60 40 mg Orally once a day Active 1 capsule Benicar HCT [facility] [address]-03 40-12.5 MG Orally Once a day Jul 05, 2014 Active 1 tablet Vitamin D (Ergocalciferol) [facility] [address]-75 44874 UNIT Orally once a week Dec 20, 2014 Mar 20, 2015 Active 1 capsule HydrOXYzine HCl [facility] [address]-73 25 MG Orally as directed Dec 20, 2014 Active 1 tablet 30 min before going to the dentist or 2 tabs 30 min before going to bed Welchol [facility] [address]-57 625 MG Orally Twice a day Jul 05, 2014 Active 3 tablets with meals Bystolic [facility] [address]-93 10 mg Orally Once a day Active 1 tablet Pataday [facility] [address]-13 Ophthalmic as needed Jul 05, 2014 Active 1 drop into affected eye Social History Social History Element Qualifiers Date Reported Ethnicity . Status , Is malawian your primary language? No Armenian Dec 20, 2014 children . 3 Dec 20, 2014 Tobacco Use: . Are you a: never smoker Dec 20, 2014 Use of recreational / street drugs? . Answer: No Dec 20, 2014 Marital Status: . Bernabe Jones Dec 20, 2014 Do you drink alcohol? . 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
--- OUTSIDE RECORDS SUMMARY | 2018-11-28 06:05 | XMS REPORT ---
Author Author Abbey Tao [facility] eClinicalWorks Address Unknown Phone Unavailable Care Team Providers Care Induction Heating Equipment Setter Name Role Phone Abbey Tao CP Unavailable Allergies, Adverse Reactions, Alerts Substance Reaction Event Type N.K.D.A. Info Not Available Non Drug Allergy Encounters Encounter Location Date Unknown [facility] Jul 01, 2014 90 day Rf [facility] Dec 16, 2014 2 week follow up [facility] Dec 20, 2014 2 week follow up [facility] Jan 03, 2015 Problems Problem Type Condition ICD-9 Code Onset Dates Condition Status Problem Hyperlipidemia 272.4 Active Problem Postmenopausal V49.81 Active Problem Hypertension, benign 401.1 Active Problem ANA LAURA (obstructive sleep apnea) 327.23 Active Problem Body Mass Index 39.0-39.9, adult V85.39 Active Problem Hypertension 401.9 Active Problem Myalgia 729.1 Active Problem Hemorrhoids 455.6 Active Problem Obesity (BMI 30-39.9) 278.00 Active Problem Prediabetes 790.29 Active Assessment Hypertension 401.9 Active Assessment Hyperlipidemia 272.4 Active Assessment CASTELLANOS (dyspnea on exertion) 786.09 Active Problem Chronic edema 782.3 Active Problem Vitamin d deficiency 268.9 Active Problem Statin intolerance 995.27 Active Problem ANAID (generalized anxiety disorder) 300.02 Active Problem Fatty liver 571.8 Active Problem Osteoarthritis, generalized 715.00 Active Medications Medication Code System Code Instructions Start Date End Date Status Dosage HydrOXYzine HCl [facility] [address]-81 25 MG Orally as directed Dec 20, 2014 Active 1 tablet 30 min before going to the dentist or 2 tabs 30 min before going to bed Benicar HCT [facility] [address]-13 40-12.5 MG Orally Once a day Jul 05, 2014 Active 1 tablet Omeprazole [facility] [address]-33 40 mg Orally once a day Active 1 capsule Pataday [facility] [address]-82 Ophthalmic as needed Jul 05, 2014 Active 1 drop into affected eye Welchol [facility] [address]-50 625 MG Orally Twice a day Jul 05, 2014 Active 3 tablets with meals Bystolic [facility] [address]-32 10 mg Orally Once a day Active 1 tablet Vitamin D (Ergocalciferol) [facility] [address]-89 89754 UNIT Orally once a week Dec 20, 2014 Mar 20, 2015 Active 1 capsule Social History Social History Element Qualifiers Date Reported Ethnicity . Status , Is mauritanian your primary language? No Mongolian Jan 03, 2015 children . 3 Jan 03, 2015 Tobacco Use: . Are you a: never smoker Jan 03, 2015 Use of recreational / street drugs? . Answer: No Jan 03, 2015 Marital Status: . Bernabe Jones Jan 03, 2015 Do you drink alcohol? . 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
--- OUTSIDE RECORDS SUMMARY | 2018-11-28 06:05 | XMS REPORT ---
Author Author Abbey Tao [facility] eClinicalWorks Address Unknown Phone Unavailable Care Team Providers Care Strategic Partnership Representative Name Role Phone Abbey Tao CP Unavailable Encounters Encounter Location Date 90 day Rf [facility] Dec 16, 2014 2 week follow up [facility] Dec 20, 2014 Unknown [facility] Jul 01, 2014 Problems Problem Type Condition ICD-9 Code Onset Dates Condition Status Problem Osteoarthritis, generalized 715.00 Active Problem Hypertension, benign 401.1 Active Problem Hyperlipidemia 272.4 Active Problem Body Mass Index 39.0-39.9, adult V85.39 Active Problem Obesity (BMI 30-39.9) 278.00 Active Problem ANA LAURA (obstructive sleep apnea) 327.23 Active Problem Hemorrhoids 455.6 Active Problem Postmenopausal V49.81 Active Problem Prediabetes 790.29 Active Problem Myalgia 729.1 Active Problem Fatty liver 571.8 Active Problem Chronic edema 782.3 Active Problem Vitamin d deficiency 268.9 Active Problem Statin intolerance 995.27 Active Problem ANAID (generalized anxiety disorder) 300.02 Active Medications Medication Code System Code Instructions Start Date End Date Status Dosage Omeprazole [facility] [address]-03 40 mg Orally once a day Active 1 capsule Social History Social History Element Qualifiers Date Reported Ethnicity . Status , Is welsh your primary language? No [place] Citizen December 06, 2014 children . 3 December 06, 2014 Tobacco Use: . Are you a: never smoker December 06, 2014 Use of recreational / street drugs? . Answer: No December 06, 2014 Marital Status: . Bernabe Jones December 06, 2014 Do you drink alcohol? . 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
--- OUTSIDE RECORDS SUMMARY | 2018-11-28 06:06 | XMS REPORT ---
Author Author Mikala Brooks eClinicalWorks Address Unknown Phone Unavailable Care Team Providers Care Kitchen Supervisor Name Role Phone Mikala Brooks CP Unavailable Allergies, Adverse Reactions, Alerts Substance Reaction Event Type N.K.D.A. Info Not Available Non Drug Allergy Encounters Encounter Location Date 1 month follow up [facility] Feb 03, 2015 Referral [facility] Feb 10, 2015 3 WEEK BP CHECK [facility] Mar 03, 2015 CHOLESTEROL CHECK [facility] Apr 21, 2015 90 day Rf [facility] Dec 16, 2014 2 week follow up [facility] Dec 20, 2014 2 week follow up [facility] Jan 03, 2015 Unknown [facility] Jul 01, 2014 Problems Problem Type Condition ICD-9 Code Onset Dates Condition Status Problem Prediabetes R73.09 Active Problem Fatty liver K76.0 Active Problem Postmenopausal Z78.0 Active Problem Essential hypertension I10 Active Problem HLD (hyperlipidemia) E78.5 Active Problem HTN (hypertension) I10 Active Problem Vitamin D deficiency E55.9 Active Problem Chronic edema R60.9 Active Problem Osteoarthritis M19.90 Active Problem ANAID (generalized anxiety disorder) F41.1 Active Assessment BMI 40.0-44.9, adult Z68.41 Active Assessment Encounter for screening for malignant neoplasm of breast Z12.39 Active Assessment HTN (hypertension) I10 Active Problem Hemorrhoids K64.9 Active Problem Myalgia M79.1 Active Assessment HLD (hyperlipidemia) E78.5 Active Problem Obesity E66.9 Active Problem ANA LAURA (obstructive sleep apnea) G47.33 Active Problem Statin intolerance Z78.9 Active Medications Medication Code System Code Instructions Start Date End Date Status Dosage Advair Diskus MEDISPAN [address]-06 250-50 MCG/DOSE Inhalation daily Active 2 puffs Celecoxib MEDISPAN [address]-20 200 MG by mouth daily Active 1 capsule Bystolic MEDISPAN [address]-70 10 mg Orally Once a day Apr 07, 2015 Active 1 tablet Omeprazole [facility] [address]-99 40 mg Orally twice a day (bid) Active 1 capsule Tribenzor [facility] [address]-42 40-5-25 MG Orally Once a day Feb 03, 2015 Active 1 tablet Meloxicam [facility] [address]-68 7.5 MG Orally Once a day Feb 03, 2015 May 04, 2015 Active 1 tablet Crestor [facility] [address]-68 5 MG Orally Once a day Active 1 tablet Vitamin D (Ergocalciferol) [facility] [address]-68 61303 UNIT Orally once per week (MUST SEE DOCTOR BEFORE NEXT REFILL) Mar 07, 2015 Active 1 capsule Social History Social History Element Qualifiers Date Reported Last Bone Density: . 07/31/13 Apr 21, 2015 Flu Vaccine: . 03/03/15 Apr 21, 2015 Last Colonoscopy: . 02/2012Apr 21, 2015 Ethnicity . Status , Is kazakh your primary language? No Yakut Apr 21, 2015 Depression Screening: . negative Apr 21, 2015 children . 3 Apr 21, 2015 Tobacco Use: . Are you a: never smoker Apr 21, 2015 Use of recreational / street drugs? . Answer: No Apr 21, 2015 Marital Status: . Bernabe Goldman Apr 21, 2015 Do you drink alcohol? . 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
--- OUTSIDE RECORDS SUMMARY | 2018-11-28 06:06 | XMS REPORT ---
Author Author Mary Ellen Weems Organization eClinicalWorks Address Unknown Phone Unavailable Care Team Providers Care Barge Pilot Name Role Phone Mary Ellen Weems Unavailable Encounters Encounter Location Date 1 month follow up [facility] Feb 03, 2015 Referral [facility] Feb 10, 2015 3 WEEK BP CHECK [facility] Mar 03, 2015 CHOLESTEROL CHECK [facility] Apr 21, 2015 90 day Rf [facility] Dec 16, 2014 2 week follow up [facility] Dec 20, 2014 2 week follow up [facility] Jan 03, 2015 Unknown [facility] Jul 01, 2014 Refill [facility] July 24, 2015 Refill [facility] July 25, 2015 Problems Problem Type Condition ICD-9 Code Onset Dates Condition Status Problem Prediabetes R73.09 Active Problem Fatty liver K76.0 Active Problem Postmenopausal Z78.0 Active Problem Essential hypertension I10 Active Problem HLD (hyperlipidemia) E78.5 Active Problem HTN (hypertension) I10 Active Problem Vitamin D deficiency E55.9 Active Problem Chronic edema R60.9 Active Problem Osteoarthritis M19.90 Active Problem ANAID (generalized anxiety disorder) F41.1 Active Problem Hemorrhoids K64.9 Active Problem Myalgia M79.1 Active Problem Obesity E66.9 Active Problem ANA LAURA (obstructive sleep apnea) G47.33 Active Problem Statin intolerance Z78.9 Active Social History Social History Element Qualifiers Date Reported Last Bone Density: . 07/31/13 Apr 21, 2015 Flu Vaccine: . 03/03/15 Apr 21, 2015 Last Colonoscopy: . 02/2012Apr 21, 2015 Ethnicity . Status , Is azeri your primary language? No Croatian Apr 21, 2015 Depression Screening: . negative Apr 21, 2015 children . 3 Apr 21, 2015 Tobacco Use: . Are you a: never smoker Apr 21, 2015 Use of recreational / street drugs? . Answer: No Apr 21, 2015 Marital Status: . Bernabecaitlyn Goldman Apr 21, 2015 Do you drink alcohol? . 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
--- OUTSIDE RECORDS SUMMARY | 2018-11-28 06:06 | XMS REPORT ---
Author Author Mikala Brooks eClinicalWorks Address Unknown Phone Unavailable Care Team Providers Care Reimbursement Rep Name Role Phone Mikala Brooks CP Unavailable Encounters Encounter Location Date 1 month follow up [facility] Feb 03, 2015 Referral [facility] Feb 10, 2015 3 WEEK BP CHECK [facility] Mar 03, 2015 CHOLESTEROL CHECK [facility] Apr 21, 2015 90 day Rf [facility] Dec 16, 2014 2 week follow up [facility] Dec 20, 2014 2 week follow up [facility] Jan 03, 2015 Unknown [facility] Jul 01, 2014 Refill [facility] July 24, 2015 Refill [facility] July [...] Instructions Start Date End Date Status Dosage Tribenzor MEDISPAN [address]-92 40-5-25 MG Orally Once a day Feb 03, 2015 Active 1 tablet Bystolic MEDISPAN [address]-53 10 mg Orally Once a day Active 1 tablet Crestor MEDISPAN [address]-98 5 MG Orally Once a day Active 1 tablet Social History Social History Element Qualifiers Date Reported Last Bone Density: . 07/31/13 Apr 21, 2015 Flu Vaccine: . 03/03/15 Apr 21, 2015 Last Colonoscopy: . 02/2012Apr 21, 2015 Ethnicity . Status , Is lebanese your primary language? No Malay Apr 21, 2015 Depression Screening: . negative [...]
--- OUTSIDE RECORDS SUMMARY | 2018-11-28 06:07 | XMS REPORT ---
Author Author Mary Ellen Weems Organization eClinicalWorks Address Unknown Phone Unavailable Care Team Providers Care Reservations Agent Name Role Phone Mary Ellen Weems Unavailable Encounters Encounter Location Date 1 month follow up [facility] Feb 03, 2015 Referral [facility] Feb 10, 2015 3 WEEK BP CHECK [facility] Mar 03, 2015 CHOLESTEROL CHECK [facility] Apr 21, 2015 90 day Rf [facility] Dec 16, 2014 Unknown [facility] July 30, 2015 2 week follow up [facility] Dec 20, 2014 Unknown [facility] Jul 01, 2014 2 week follow up [facility] Jan 03, 2015 Other [facility] July 29, 2015 Refill [facility] July 24, 2015 Refill [facility] July [...] 21, 2015 Ethnicity . Status , Is romanian your primary language? No Bermudian Apr 21, 2015 Depression Screening: . negative [...]
--- OUTSIDE RECORDS SUMMARY | 2018-11-28 06:07 | XMS REPORT ---
Author Author Mary Ellen Weems [facility] eClinicalWorks Address Unknown Phone Unavailable Care Team Providers Care Fiber Picker Name Role Phone Mary Ellen Weems Unavailable Encounters Encounter Location Date 1 month follow up [facility] Feb 03, 2015 Referral [facility] Feb 10, 2015 3 WEEK BP CHECK [facility] Mar 03, 2015 CHOLESTEROL CHECK [facility] Apr 21, 2015 90 day Rf [facility] Dec 16, 2014 Unknown [facility] Jul 01, 2014 2 week follow up [facility] Dec 20, 2014 2 week follow up [facility] Jan 03, 2015 Other [facility] July 29, 2015 Refill [facility] July 24, 2015 Refill [facility] July [...] Instructions Start Date End Date Status Dosage Exforge HCT MEDISPAN [address]-11 5-160-25 MG Orally Once a day July 29, 2015 Active 1 tablet Social History Social History Element Qualifiers Date Reported Last Bone Density: . 07/31/13 Apr 21, 2015 Flu Vaccine: . 03/03/15 Apr 21, 2015 Last Colonoscopy: . 02/2012Apr 21, 2015 Ethnicity . Status , Is belgian your primary language? No Grenadian Apr 21, 2015 Depression Screening: . negative Apr 21, 2015 children . 3 Apr 21, 2015 Tobacco Use: . Are you a: never smoker Apr 21, 2015 Use of recreational / street drugs? . Answer: No Apr 21, 2015 Marital Status: . Bernabe Jones Apr 21, 2015 Do you drink alcohol? . 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
--- OUTSIDE RECORDS SUMMARY | 2018-11-28 06:07 | XMS REPORT ---
Author Author Rylee Rodriguez eClinicalWorks Address Unknown Phone Unavailable Care Team Providers Care Rock Crusher Name Role Phone Rylee Rodriguez CP Unavailable Allergies, Adverse Reactions, Alerts Substance Reaction Event Type N.K.D.A. Info Not Available Non Drug Allergy Encounters Encounter Location Date 1 month follow up [facility] Feb 03, 2015 Referral [facility] Feb 10, 2015 3 WEEK BP CHECK [facility] Mar 03, 2015 CHOLESTEROL CHECK [facility] Apr 21, 2015 90 day Rf [facility] Dec 16, 2014 2 week follow up [facility] Dec 20, 2014 2 week follow up [facility] Jan 03, 2015 Other [facility] July 29, 2015 Refill [facility] July 24, 2015 Refill [facility] July 25, 2015 Unknown [facility] Jul 01, 2014 Unknown [facility] July 30, 2015 dizziness [facility] Jun 14, 2016 Problems Problem Type Condition ICD-9 Code Onset Dates Condition Status Problem Postmenopausal Z78.0 Active Problem Chronic edema R60.9 Active Problem Fatty liver K76.0 Active Problem HTN (hypertension) I10 Active Problem Essential hypertension I10 Active Problem Allergic sinusitis J30.9 Active Problem ANAID (generalized anxiety disorder) F41.1 Active Problem Vitamin D deficiency E55.9 Active Problem HLD (hyperlipidemia) E78.5 Active Problem Osteoarthritis M19.90 Active Assessment CANDICE (secretory otitis media), bilateral H65.93 Active Assessment Dizziness R42 Active Assessment Allergic sinusitis J30.9 Active Problem Myalgia M79.1 Active Problem Obesity E66.9 Active Problem ANA LAURA (obstructive sleep apnea) G47.33 Active Problem Statin intolerance Z78.9 Active Problem Hemorrhoids K64.9 Active Problem Prediabetes R73.09 Active Medications Medication Code System Code Instructions Start Date End Date Status Dosage Norel AD [facility] [address]-87 4-10-325 MG Orally every six to eight hours Jun 14, 2016 August 13, 2016 Active as directed Exforge HCT [facility] [address]-04 5-160-25 MG Orally Once a day July 29, 2015 Active 1 tablet Celecoxib [facility] [address]-66 200 MG by mouth daily Active 1 capsule Advair Diskus [facility] [address]-08 250-50 MCG/DOSE Inhalation daily Active 2 puffs Meclizine HCl [facility] [address]-84 25 MG Orally Once a day Active 1 tablet as needed Tribenzor [facility] [address]-00 40-5-25 MG Orally Once a day Feb 03, 2015 Active 1 tablet Bystolic [facility] [address]-36 10 mg Orally Once a day Active 1 tablet Amlodipine Besylate [facility] [address]-17 10 MG Orally Once a day Active 1 tablet MetFORMIN HCl ER [facility] [address]-25 500 MG Orally Once a day Active 1 tablet with evening meal Omeprazole [facility] [address]-98 40 mg Orally twice a day (bid) Active 1 capsule Crestor [facility] [address]-56 5 MG Orally Once a day Active 1 tablet Losartan Potassium-HCTZ [facility] [address]-34 100-25 MG Orally Once a day Active 1 tablet Pantoprazole Sodium [facility] [address]-23 40 MG Orally Once a day Active 1 tablet Vitamin D (Ergocalciferol) [facility] [address]-43 42712 UNIT Orally once per week (MUST SEE DOCTOR BEFORE NEXT REFILL) Mar 07, 2015 Active 1 capsule Social History Social History Element Qualifiers Date Reported Last Bone Density: . 07/31/13 Jun 14, 2016 Flu Vaccine: . 03/03/15 Jun 14, 2016 Last Colonoscopy: . 02/2012Jun 14, 2016 Ethnicity . Status , Is taiwanese your primary language? No Malay Jun 14, 2016 Depression Screening: . negative Jun 14, 2016 children . 3 Jun 14, 2016 Tobacco Use: . Are you a: never smoker Jun 14, 2016 Use of recreational / street drugs? . Answer: No Jun 14, 2016 Marital Status: . Bernabe Goldman Jun 14, 2016 Do you drink alcohol? . 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
--- OUTSIDE RECORDS SUMMARY | 2018-11-28 06:07 | XMS REPORT ---
Author Author Rylee Rodriguez eClinicalWorks Address Unknown Phone Unavailable Care Team Providers Care Natural Gas Basis Trader Name Role Phone Rylee Rodriguez CP Unavailable Encounters Encounter Location Date 1 month follow up [facility] Feb 03, 2015 Referral [facility] Feb 10, 2015 3 WEEK BP CHECK [facility] Mar 03, 2015 CHOLESTEROL CHECK [facility] Apr 21, 2015 90 day Rf [facility] Dec 16, 2014 2 week follow up [facility] Dec 20, 2014 2 week follow up [facility] Jan 03, 2015 Other [facility] July 29, 2015 Refill [facility] July 24, 2015 Refill [facility] July 25, 2015 Unknown [facility] Jun 14, 2016 Unknown [facility] Jul 01, 2014 Unknown [facility] July 30, 2015 dizziness [facility] Jun 14, [...] E78.5 Active Problem Osteoarthritis M19.90 Active Problem Myalgia M79.1 Active Problem Obesity E66.9 Active Problem ANA LAURA (obstructive sleep apnea) G47.33 Active Problem Statin intolerance Z78.9 Active Problem Hemorrhoids K64.9 Active Problem Prediabetes R73.09 Active Medications Medication Code System Code Instructions Start Date End Date Status Dosage [facility] [address]-19 25 MG Orally Q 6 hours Jun 15, 2016 Active 1 tablet as needed Bromfed DM MEDISPAN [address]-47 30-2-10 MG/5ML Orally every 6 hrs Jun 15, 2016 Jun 20, 2016 Active 10 ml as needed Social History Social History Element Qualifiers Date Reported Last Bone Density: . 07/31/13 Jun 14, 2016 Flu Vaccine: . 03/03/15 Jun 14, 2016 Last Colonoscopy: . 02/2012Jun 14, 2016 Ethnicity . Status , Is greenlandic your primary language? No Kiswahili Jun 14, 2016 Depression Screening: . negative Jun 14, 2016 children . 3 Jun 14, 2016 Tobacco Use: . Are you a: never smoker Jun 14, 2016 Use of recreational / street drugs? . Answer: No Jun 14, 2016 Marital Status: . Bernabe Jones Jun 14, 2016 Do you drink alcohol? . 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
--- OUTSIDE RECORDS SUMMARY | 2018-11-28 06:08 | XMS REPORT ---
Author Author Mikala Brooks Organization eClinicalWorks Address Unknown Phone Unavailable Care Team Providers Care Plywood Matcher Name Role Phone Mikala Brooks CP Unavailable [...] Hemorrhoids K64.9 Active Problem Obesity E66.9 Active Problem Statin intolerance Z78.9 Active Problem ANA LAURA (obstructive sleep apnea) G47.33 Active Problem Prediabetes R73.09 Active Medications Medication Code System Code Instructions Start Date End Date Status Dosage Zetia [facility] [address]-95 10 MG Orally Once a day July 29, 2016 Active 1 tablet Results No Known Results Summary Purpose eClinicalWorks Submission
--- OUTSIDE RECORDS SUMMARY | 2018-11-28 06:08 | XMS REPORT ---
Author Author Octavia Larson [facility] eClinicalWorks Address Unknown Phone Unavailable Care Team Providers Care Acid Correction Hand Name Role Phone Octavia Larson CP Unavailable Allergies, Adverse Reactions, Alerts Substance Reaction Event Type N.K.D.A. Info Not Available Non Drug Allergy Encounters Encounter Location Date 1 month follow up [facility] Feb 03, 2015 Referral [facility] Feb 10, 2015 3 WEEK BP CHECK [facility] Mar 03, 2015 CHOLESTEROL CHECK [facility] Apr 21, [address] [facility] Dec 16, 2014 2 week follow up [facility] Dec 20, 2014 2 week follow up [facility] Jan 03, [address] [facility] July 29, [address] [facility] July 24, [address] [facility] July 25, 2015 Unknown [facility] Jul 01, [address] [facility] Jun 14, 2016 DIZZINESS, FEELING SICK [facility] Jul 05, 2016 Unknown [facility] July 30, 2015 dizziness [facility] Jun 14, 2016 Problems Problem Type Condition ICD-9 Code Onset Dates Condition Status Problem Postmenopausal Z78.0 Active Problem Chronic edema R60.9 Active Problem Fatty liver K76.0 Active Problem Allergic sinusitis J30.9 Active Assessment ANA LAURA (obstructive sleep apnea) G47.33 Active Problem Essential hypertension I10 Active Assessment ANAID (generalized anxiety disorder) F41.1 Active Assessment Gastroesophageal reflux disease, esophagitis presence not specified K21.9 Active Problem Gastroesophageal reflux disease, esophagitis presence not specified K21.9 Active Problem ANAID (generalized anxiety disorder) F41.1 Active Problem Vitamin D deficiency E55.9 Active Problem HLD (hyperlipidemia) E78.5 Active Problem Osteoarthritis M19.90 Active Assessment HLD (hyperlipidemia) E78.5 Active Assessment Allergic sinusitis J30.9 Active Assessment Vitamin D deficiency E55.9 Active Assessment Prediabetes R73.09 Active Problem Hemorrhoids K64.9 Active Problem Obesity E66.9 Active Assessment Essential hypertension I10 Active Problem Statin intolerance Z78.9 Active Assessment Dizziness R42 Active Problem ANA LAURA (obstructive sleep apnea) G47.33 Active Problem Prediabetes R73.09 Active Medications Medication Code System Code Instructions Start Date End Date Status Dosage Amlodipine Besylate [facility] [address]-73 10 MG Orally Once a day Active 1 tablet Losartan Potassium-HCTZ [facility] [address]-53 100-25 MG Orally Once a day Active 1 tablet Sertraline HCl [facility] [address]-03 50 MG Orally Once a day Active 1 tablet Pantoprazole Sodium [facility] [address]-79 40 MG Orally Once a day Active 1 tablet Meclizine HCl [facility] [address]-14 25 MG Orally Once a day Active 1 tablet as needed Norel AD [facility] [address]-23 4-10-325 MG Orally every six to eight hours Jun 14, 2016 August 13, 2016 Active as directed Meclizine HCl [facility] [address]-32 25 MG Orally Q 6 hours Jun 15, 2016 Active 1 tablet as needed MetFORMIN HCl ER [facility] [address]-41 500 MG Orally Once a day Active 1 tablet with evening meal Flonase [facility] [address]-78 50 MCG/ACT Nasally Once a day Jul 05, 2016 Active 1 spray in each nostril Diazepam [facility] [address]-77 5 MG Orally 1 tablet PRN prior to flight as needed Active 1 tablet as needed Social History Social History Element Qualifiers Date Reported Last Bone Density: . 07/31/13 Jul 05, 2016 Flu Vaccine: . 2015Jul 05, 2016 Last Colonoscopy: . 02/2012Jul 05, 2016 Ethnicity . Status , Is frisian your primary language? No Chinese Jul 05, 2016 Depression Screening: . negative Jul 05, 2016 children . 3 Jul 05, 2016 Tobacco Use: . Are you a: never smoker Jul 05, 2016 Use of recreational / street drugs? . Answer: No Jul 05, 2016 Marital Status: . Bernabe Goldman Jul 05, 2016 Do you drink alcohol? . 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
--- OUTSIDE RECORDS SUMMARY | 2018-11-28 06:08 | XMS REPORT ---
Author Author Mikala Brooks eClinicalWorks Address Unknown Phone Unavailable Care Team Providers Care Rehab Specialist Name Role Phone Mikala Brooks CP Unavailable Allergies, Adverse Reactions, Alerts Substance Reaction Event Type N.K.D.A. Info Not Available Non Drug Allergy Encounters Encounter Location Date 1 month follow up [facility] Feb 03, 2015 Referral [facility] Feb 10, 2015 3 WEEK BP CHECK [facility] Mar 03, 2015 CHOLESTEROL CHECK [facility] Apr 21, 2015 90 day Rf [facility] Dec 16, 2014 2 week follow up [facility] Dec 20, 2014 2 week follow up [facility] Jan 03, 2015 Other [facility] July 29, 2015 Refill [facility] July 24, 2015 Refill [facility] July 25, 2015 Physical [facility] July 21, [address] [facility] Jul 01, 2014 Unknown [facility] Jun 14, 2016 DIZZINESS, FEELING SICK [facility] Jul 05, 2016 Unknown [facility] July 30, 2015 dizziness [facility] Jun 14, 2016 Problems Problem Type Condition ICD-9 Code Onset Dates Condition Status Problem Statin intolerance Z78.9 Active Assessment Allergic sinusitis J30.9 Active Problem Prediabetes R73.09 Active Assessment ANAID (generalized anxiety disorder) F41.1 Active Problem Postmenopausal Z78.0 Active Problem Chronic edema R60.9 Active Problem Fatty liver K76.0 Active Problem Allergic sinusitis J30.9 Active Problem Essential hypertension I10 Active Assessment Screening for breast cancer Z12.39 Active Assessment Screening for osteoporosis Z13.820 Active Problem Gastroesophageal reflux disease, esophagitis presence not specified K21.9 Active Assessment Screening for colon cancer Z12.11 Active Problem ANAID (generalized anxiety disorder) F41.1 Active Problem Vitamin D deficiency E55.9 Active Problem HLD (hyperlipidemia) E78.5 Active Problem Osteoarthritis M19.90 Active Assessment HLD (hyperlipidemia) E78.5 Active Assessment Essential hypertension I10 Active Assessment Prediabetes R73.09 Active Assessment Vitamin D deficiency E55.9 Active Problem Hemorrhoids K64.9 Active Problem Obesity E66.9 Active Assessment Encntr for general adult medical exam w/o abnormal findings Z00.00 Active Problem ANA LAURA (obstructive sleep apnea) G47.33 Active Medications Medication Code System Code Instructions Start Date End Date Status Dosage Losartan Potassium-HCTZ [facility] [address]-73 100-25 MG Orally Once a day Active 1 tablet Norel AD [facility] [address]-75 4-10-325 MG Orally every six to eight hours Jun 14, 2016 August 13, 2016 Active as directed Loratadine [facility] [address]-81 10 MG Orally Once a day Active 1 tablet Flonase [facility] [address]-71 50 MCG/ACT Nasally Once a day Jul 05, 2016 Active 1 spray in each nostril Amlodipine Besylate [facility] [address]-00 10 MG Orally Once a day Active 1 tablet Meclizine HCl [facility] [address]-31 25 MG Orally Q 6 hours Jun 15, 2016 Active 1 tablet as needed Sertraline HCl [facility] [address]-24 50 MG Orally Once a day Active 1 tablet Diazepam [facility] [address]-76 5 MG Orally 1 tablet PRN prior to flight as needed Active 1 tablet as needed Pantoprazole Sodium [facility] [address]-80 40 MG Orally Once a day Active 1 tablet Meclizine HCl [facility] [address]-18 25 MG Orally Once a day Active 1 tablet as needed MetFORMIN HCl ER [facility] [address]-88 500 MG Orally Once a day Active 1 tablet with evening meal Social History Social History Element Qualifiers Date Reported 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 Status , Is ethiopian your primary language? No Telugu July 21, 2016 Marital Status: . Bernabe Goldman July 21, 2016 Caffeine intake? . Status: Yes, What type: Coffee July 21, 2016 Do you exercise? . Answer: Yes, Type: walking July 21, 2016 Depression Screening: . negative July 21, 2016 Last Bone Density: . 07/31/13 July 21, 2016 Do you drink alcohol? . Status: No July 21, 2016 Family history Qualifier Description Comment Date Reported Maternal Grandmother Comment not available July [...] Other: Comment not available July 21, 2016 Vital Signs Date/Time: July 21, 2016 Weight 236 lbs Height 66 in Cardiac Monitoring Heart Rate 85 /min Blood Pressure Diastolic 76 mm Hg Blood Pressure Systolic 124 mm Hg Results BONE DENSITY Summary Purpose eClinicalWorks Submission
--- OUTSIDE RECORDS SUMMARY | 2018-11-28 06:09 | XMS REPORT ---
Author Author [facility] Address Unknown Phone Unavailable Care Team Providers Care Learning Coordinator Name Role Phone Unavailable Unavailable Problems This patient has no known problems. Allergies, Adverse Reactions, Alerts This patient has no known allergies or adverse reactions. Medications This patient has no known medications. Encounters Start Date/Time End Date/Time Encounter Type Admission Type Attending Clinicians Care Facility Care Department Encounter ID 2018-10-30 19:36:40 [id number]
--- NOTE | 2018-11-28 07:10 | NUR ---
SPIRITUAL CARE - Pre-Surgery Assessment: Pt in bed. Pt's at bedside. Pt reported supportive attention from family and friends. Intervention: I provided pastoral presence, hospitality, sympathetic listening, and prayer. I acquainted pt with availability of fashion artist while hospitalized. Outcome: Pt expressed appreciation for visit. No need for follow up indicated at this time. [facility] Spiritual Care Department O: [phone] Pager: [phone])
[2018-11-28 09:00] VITALS: BP 120/84
== END | disposition home or self-care (01) ==
LOC: OR 05:41
PROVIDERS: ATTEND Internal Medicine Gastroenterology
DX: K29.50 Unspecified chronic gastritis without bleeding (principal); K31.7 Polyp of stomach and duodenum; K21.0 Gastro-esophageal reflux disease with esophagitis; K44.9 Diaphragmatic hernia without obstruction or gangrene; E78.5 Hyperlipidemia, unspecified; I10 Essential (primary) hypertension; E11.9 Type 2 diabetes mellitus without complications; R06.00 Dyspnea, unspecified; R07.2 Precordial pain; R94.31 Abnormal electrocardiogram [ECG] [EKG]; R94.39 Abnormal result of other cardiovascular function study; E78.00 Pure hypercholesterolemia, unspecified; Z78.9 Other specified health status; F41.9 Anxiety disorder, unspecified; Z01.810 Encounter for preprocedural cardiovascular examination; Z79.84 Long term (current) use of oral hypoglycemic drugs; Z68.38 Body mass index [BMI] 38.0-38.9, adult
CPT/HCPCS: 36415; 43239; 82948; 93005; J2250; J2704; J3010

== ENCOUNTER → 2021-01-13 | Day surgery (SDC) | payer BC, OTHER ==
[~2021-01-13] MED LIST changes: +ACETAMINOPHEN650 M1 PO; -FENTANYL CITRATE/PF 100MCG/2 ML INJ ONE; -MECLIZINE HCL25 MG; +MECLIZINE HCL25 MG PO; -MIDAZOLAM HCL 2 MG/2 ML VIAL ONE; +OMEPRAZOLE40 MG PO; -PROPOFOL IV EMULSION 10 MG/ML 50 ML VIAL ONE; +VITAMIN D250 MCG PO
[2021-01-13 09:55] VITALS: BP 143/73
== END | disposition home or self-care (01) ==
LOC: OR 07:31
PROVIDERS: ATTEND Internal Medicine Gastroenterology
DX: K29.70 Gastritis, unspecified, without bleeding (principal); K44.9 Diaphragmatic hernia without obstruction or gangrene; K59.00 Constipation, unspecified; E11.9 Type 2 diabetes mellitus without complications; I10 Essential (primary) hypertension; E78.5 Hyperlipidemia, unspecified; Z01.810 Encounter for preprocedural cardiovascular examination; Z01.812 Encounter for preprocedural laboratory examination; Z20.822 Contact with and (suspected) exposure to COVID-19
CPT/HCPCS: 36415; 43239; 82948; 93005; U0002

== ENCOUNTER → 2022-06-18 | Outpatient (CLI) | payer MEDICARE ==
[~2022-06-18] MED LIST changes: +DIATRIZOATE MEGL/DIATRIZOA SOD 30 ML BTL PO ONE; +IOPAMIDOL 370 MG/ML 100 ML INFUS..BTL INJ ONE
[2022-06-18 14:27] LABS: CREATININE, SERUM 1.08 mg/dL (0.57-1.11)
== END ==
LOC: CT 13:32
PROVIDERS: ATTEND Internal Medicine Gastroenterology
DX: R10.13 Epigastric pain (principal); R19.8 Other specified symptoms and signs involving the digestive system and abdomen
CPT/HCPCS: 36415; 74177; 82565; 84520; Q9963; Q9967

== ENCOUNTER → 2022-07-06 | Day surgery (SDC) | payer MEDICARE ==
[2022-07-05 10:20] LABS: BASOPHILS % 0.7 % (0.0-1.0); EOSINOPHILS # (AUTO) 0.1 (0.0-0.4); EOSINOPHILS % 0.8 % (0.0-6.0); HEMATOCRIT 38.2 % (34.2-44.1); HEMOGLOBIN 13.1 g/dL (12.0-16.0); LYMPHOCYTES # (AUTO) 1.9 (1.0-3.2); LYMPHOCYTES % 31.1 % (18.0-39.1); MEAN CORPUSCULAR HEMOGLOBIN 29.3 pg (28-32); MEAN CORPUSCULAR HGB CONC 34.3 g/dL (31-35); MEAN CORPUSCULAR VOLUME 85.5 fL (81-99); MONOCYTES # (AUTO) 0.6 (0.2-0.8); MONOCYTES % 9.1 % (4.4-11.3); NEUTROPHILS # (AUTO) 3.6 (2.1-6.9); NEUTROPHILS % 57.8 % (38.7-80.0); PLATELET COUNT 194 x10e3/uL (140-360); RED BLOOD COUNT 4.47 x10e6/uL (3.6-5.1); RED CELL DISTRIBUTION WIDTH 14.3 % (11.7-14.4)
[~2022-07-06] MED LIST changes: +ALIGN4 MG PO; -DIATRIZOATE MEGL/DIATRIZOA SOD 30 ML BTL PO ONE; +FENTANYL CITRATE/PF 100MCG/2 ML INJ ONE; -IOPAMIDOL 370 MG/ML 100 ML INFUS..BTL INJ ONE; +LIDOCAINE HCL 2% LOCAL INJ 5 ML SDV VIAL INJ ONE; +POVIDONE IODINE 0.05% 0.05 % ML PO ONE; +PROPOFOL IV EMULSION 10 MG/ML 20 ML VIAL ONE
[2022-07-06 13:30] VITALS: BP 132/70
== END | disposition home or self-care (01) ==
LOC: OR 09:32
PROVIDERS: ATTEND Internal Medicine Gastroenterology
DX: Z12.11 Encounter for screening for malignant neoplasm of colon (principal); D12.3 Benign neoplasm of transverse colon; K57.30 Diverticulosis of large intestine without perforation or abscess without bleeding; K59.00 Constipation, unspecified; K64.8 Other hemorrhoids; K21.9 Gastro-esophageal reflux disease without esophagitis; R19.8 Other specified symptoms and signs involving the digestive system and abdomen; K30 Functional dyspepsia; I10 Essential (primary) hypertension; E11.9 Type 2 diabetes mellitus without complications; E78.5 Hyperlipidemia, unspecified; T78.40XA Allergy, unspecified, initial encounter; X58.XXXA Exposure to other specified factors, initial encounter; Z01.810 Encounter for preprocedural cardiovascular examination; Z01.812 Encounter for preprocedural laboratory examination; Z79.899 Other long term (current) drug therapy; Z68.41 Body mass index [BMI] 40.0-44.9, adult
CPT/HCPCS: 36415; 45385; 85025; 88305; 93005; J2001; J2704; J3010; 45380